=== PATIENT | female | born 1955 | race Caucasian/White ===

== ENCOUNTER 2022-08-07 05:55 | Inpatient (IN) ==
--- NOTE | 2022-06-07 10:51 | PAT Medication Instructions ---
Medication Instructions Date of Service June 07, 2022 Home Medications amlodipine 5 mg tablet 5 mg PO QAM aspirin 81 mg tablet,delayed release (Adult Low Dose Aspirin) 81 mg PO QAM calcium carbonate 600 mg-vitamin D3 10 mcg (400 unit) capsule 1 cap PO QAM clopidogrel 75 mg tablet 75 mg PO QAM insulin glargine 100 unit/mL (3 mL) subcutaneous pen (Basaglar CindyPen U-100 Insulin) 16 unit subcut QPM lisinopril 2.5 mg tablet 2.5 mg PO QAM metformin 500 mg tablet,extended release 24 hr 500 mg PO QAM metoprolol succinate 100 mg tablet,extended release 24 hr 100 mg PO QAM montelukast 10 mg tablet 10 mg PO QAM nitroglycerin 0.4 mg sublingual tablet 0.4 mg sublingual Q5M PRN chest pain pantoprazole 40 mg tablet,delayed release 40 mg PO QAM paroxetine HCl 10 mg tablet 10 mg PO QAM rosuvastatin 20 mg tablet 20 mg PO QAM sitagliptin 100 mg tablet (Januvia) 100 mg PO QAM dapagliflozin 10 mg tablet (xiga) 10 mg PO QAM furosemide 20 mg tablet 20 mg PO QAM PRN Edema Continue as directed nitroglycerin 0.4 mg sublingual tablet 0.4 mg sublingual Q5M PRN chest pain (if needed) ASK your prescriber and surgeon aspirin 81 mg tablet,delayed release (Adult Low Dose Aspirin) 81 mg PO QAM clopidogrel 75 mg tablet 75 mg PO QAM DO NOT take the morning of surgery calcium carbonate 600 mg-vitamin D3 10 mcg (400 unit) capsule 1 cap PO QAM lisinopril 2.5 mg tablet 2.5 mg PO QAM metformin 500 mg tablet,extended release 24 hr 500 mg PO QAM montelukast 10 mg tablet 10 mg PO QAM sitagliptin 100 mg tablet (Januvia) 100 mg PO QAM furosemide 20 mg tablet 20 mg PO QAM PRN Edema Take morning of surgery With a small sip of water, OTHERWISE NOTHING TO EAT OR DRINK AFTER MIDNIGHT: amlodipine 5 mg tablet 5 mg PO QAM metoprolol succinate 100 mg tablet,extended release 24 hr 100 mg PO QAM pantoprazole 40 mg tablet,delayed release 40 mg PO QAM paroxetine HCl 10 mg tablet 10 mg PO QAM rosuvastatin 20 mg tablet 20 mg PO QAM Take evening before surgery insulin glargine 100 unit/mL (3 mL) subcutaneous pen (Basaglar KwikPen U-100 Insulin) 16 unit subcut QPM Other Notes STOP 3 days before surgery dapagliflozin 10 mg tablet (Eric) 10 mg PO QAM If you have any questions please call us at [phone] or [phone] or [phone] or [phone]
--- NOTE | 2022-06-12 09:45 | Anesthesiology Consultation ---
Date of Service June 12, 2022 Assessment & Plan (1) Encounter for pre-operative examination: Plan - check BSG am DOS. To anesthesiologist discretion if pt needs additional testing DOS. - reflux: pt reports nocturnal hiccups and regurgitation, chest CT 03/08/22 shows nonspecific hazy appearance of the dependent portion of the right lung combined with mucus in the trachea suggests aspiration. - Case discussed with Dr. Moon who advised nothing further needed from his standpoint, she is acceptable to proceed. - possible difficult intubation: hx of cervical spine fusion, significantly limited cervical extension. - cardiology 04/28/22: "...coronary artery disease peripheral arterial disease s/p left iliac stent as well as carotid disease s/p right carotid endarterectomy...2004 underwent a mid LAD stent...2008 repeat stenting to mid LAD x 2...2009...third procedure to LAD with XIENCE stent...stress test was in 2014 which was normal...Lexiscan nuclear stress test to assess for ischemia...echo to assess her LV function..." Subsequent testing completed and above, clearance 06/01/22: "...low to moderate risk, see echo and nuclear stress- both normal..." - COVID screening: Per assessment on 06/12/2022: Travel screen negative, no known COVID-19 positive contacts or current COVID-19 related symptoms in past 2 weeks. Pt vaccinated. COVID test obtained at [facility] appt. Chart Review Chart Review: Acceptable Risk for Surgery and Patient seen in Pre Admission Testing Teaching & Discussion Pre-Anesthesia Teaching/Discussion Notes: Instructed NPO after midnight before surgery, except medications with 15 cc of water. Medication instructions provided according to the [facility] guidelines. History Surgery Operation Date: 06/14/22 13:00 Proposed Procedures p Left Carotid Endarterectomy - Wong Snigh MD Height/Weight Height: 5 ft 6 in Weight: 61.8 kg Allergies Allergy/AdvReac Type Severity Reaction Status Date / Time adhesive tape Allergy Severe skin Verified 06/06/22 15:12 irritation No Known Drug Allergies Allergy Verified 06/06/22 15:11 Medications Home Medications Medication Instructions Recorded Confirmed Last Taken amlodipine 5 mg tablet 5 mg PO QAM 05/26/22 06/06/22 Unknown aspirin 81 mg tablet,delayed 81 mg PO QAM 05/26/22 06/06/22 Unknown release (Adult Low Dose Aspirin) calcium carbonate 600 mg-vitamin 1 cap PO QAM 05/26/22 06/06/22 Unknown D3 10 mcg (400 unit) capsule clopidogrel 75 mg tablet 75 mg PO QAM 05/26/22 06/06/22 Unknown insulin glargine 100 unit/mL (3 16 unit subcut QPM 05/26/22 06/06/22 Unknown mL) subcutaneous pen (Basaglar KwikPen U-100 Insulin) lisinopril 2.5 mg tablet 2.5 mg PO QAM 05/26/22 06/06/22 Unknown metformin 500 mg tablet,extended 500 mg PO QAM 05/26/22 06/06/22 Unknown release 24 hr metoprolol succinate 100 mg 100 mg PO QAM 05/26/22 06/06/22 Unknown tablet,extended release 24 hr montelukast 10 mg tablet 10 mg PO QAM 05/26/22 06/06/22 Unknown nitroglycerin 0.4 mg sublingual 0.4 mg sublingual Q5M PRN chest 05/26/22 06/06/22 Unknown tablet pain pantoprazole 40 mg tablet,delayed 40 mg PO QAM 05/26/22 06/06/22 Unknown release paroxetine HCl 10 mg tablet 10 mg PO QAM 05/26/22 06/06/22 Unknown rosuvastatin 20 mg tablet 20 mg PO QAM 05/26/22 06/06/22 Unknown sitagliptin 100 mg tablet (Januvia) 100 mg PO QAM 05/26/22 06/06/22 Unknown dapagliflozin 10 mg tablet 10 mg PO QAM 06/06/22 06/06/22 Unknown (Farxiga) furosemide 20 mg tablet 20 mg PO QAM PRN Edema 06/06/22 06/06/22 Unknown Past Medical History Medical History (Updated 06/12/22 @ 09:53 by Erma Andrew PA-C) Abnormal chest CT 03/08/22: Nonspecific hazy appearance of the dependent portion of the right lung combined with mucus in the trachea suggests aspiration. There is also suggestion of a small nodule in the left mainstem bronchus. Likely noncancerous, should be followed with noncontrast CT scan in 6 months Anxiety situational CAD (coronary artery disease) total 4 stents per pt Carotid artery stenosis s/p right carotid endarterectomy 12 yrs ago; Degenerative disc disease Depression situational Diabetes mellitus, type 2 IDDM GERD (gastroesophageal reflux disease) pt states symptoms breakthrough despite medication, nocturnal hiccups and regurgitation despite wedge pillow Hyperlipidemia Hypertension controlled, stable per pt Myocardial infarction multiple, s/p stents Peripheral arterial disease s/p left iliac stent Transient ischemic attack (TIA) s/p right cartiod endarterectomy (12 years + ago) no problems since Patient denies h/o seizures, heart failure, blood clots or blood transfusions. Exercise / Class Metabolic Activity II 4-5 Yardwork/Stairs/Walk up hill (denies CP or SOB with 1 FOS) Past Family History Family History Mother Heart disease Stroke Father Heart disease Sister Heart disease Other No family history of adverse response to anesthesia Past Surgical History Surgical History (Updated 06/12/22 @ 09:54 by Erma Andrew PA-C) History of cardiac cath x3 total (last one 2009) History of carotid endarterectomy right History of cholecystectomy History of colonoscopy History of esophagogastroduodenoscopy (EGD) History of heart artery stent total x4 stents. (1 stent in 2004, 2 stents placed in 2008, 1 stent placed in 2009 at [facility]) History of surgery "bone part removal" R shoulder History of surgery on lower extremity Left leg (iliac stent placement) S/P cervical spinal fusion C3-C4-C5. 90% movement to the left. Status post de Quervain's release surgery bilat Past Anesthesia History No Family Hx of Anesthesia Complications and Other (occasionally combative behavior with post-op confusion including "swatting" hands) History of PONV No Hx of PONV and No Hx of Motion Sickness Social History Smoking Status: Current every day smoker (-advised) tobacco type: cigarettes Smoking cigarettes per day: 10 Do You Dip or Chew Tobacco: No Hx Alcohol Use: No Hx Substance Use: No substance use type: does not use Review of Systems Patient denies chest pain, shortness of breath, dyspnea on exertion, snoring, witnessed apneas, dizziness, lightheadedness, visual changes, headache, nausea, vomiting, diaphoresis, fever, chills, cough, wheezing, or palpitations. Physical Exam Vital Signs Vitals BP 97/60 P 65 TEMP 98.6 SP02 99% on RA RESP 17 Physical Limited cervical extension range of motion without pain TMD 3.5 finger breadths Mallampati Score 2 Dentition: intact, removable plate front upper and missing lower molars bilat; denies chipped teeth, caps or crowns Lungs: normal respiratory effort. Clear throughout to auscultation, no adventitious breath sounds Cardiac: regular rate and rhythm, no murmurs noted Carotid arteries: negative bruit bilat Lab Results Anesthesia Preop Results Results Anesthesia Widget: WBC 13.53 K/ul (4.8-10.8) H 06/12/22 Hgb 17.2 g/dl (12.0-16.0) H 06/12/22 Hct 51.0 % (34.1-44.9) H 06/12/22 Plt 205 K/uL (130-400) 06/12/22 Na 137 mmol/L (136-145) 06/12/22 K 4.9 mmol/L (3.5-5.1) 06/12/22 Cl 102 mmol/L (98-107) 06/12/22 CO2 29 mmol/L (21-32) 06/12/22 BUN 12 mg/dl (6-23) 06/12/22 Creat 0.81 mg/dl (0.6-1.2) 06/12/22 Glucose Level 133 mg/dl (70-99(Fasting)) H 06/12/22 PT 10.9 Seconds (9.0-12.0) 06/12/22 PTT 28.2 Seconds (21.0-31.0) 06/12/22 INR 1.0 (0.9-1.1) 06/12/22 HA1c 7.9 % H 05/29/22 Blood Type O Positive 06/12/22 Antibody Screen NEGATIVE 06/12/22 Testing Laboratory Results Danny with surgeon's office made aware of elevated WBC with left shift. Electrocardiogram Date: 06/12/22 Sinus rhythm, rate [address] and T wave abnormality Echocardiogram Date: 05/29/22 EF 55% Mildly dilated RA Stress Test Date: 05/29/22 Pharmacologic No significant rest or stress associated defects, no evidence of myocardial ischemia or infarct EF 59% Mild breast attenuation Normal wall motion Other Testing Chest CT 03/08/22 Faint, hazy opacities posteriorly in the right lung suggesting nonspecific inflammatory process Mucus layering in the trachea, suggestion of mucus in the left mainstem bronchus with 3 mm nodule in the non dependent wall of the left mainstem bronchus may also represent mucus Atherosclerotic disease of the aorta Dense coronary artery calcifications Borderline precarinal lymph node 1.6 x 1.4 cm Mild degenerative changes in the spine and sternoclavicular joints Nonspecific hazy appearance of the dependent portion of the right lung combined with mucus in the trachea suggests aspiration. There is also suggestion of a small nodule in the left mainstem bronchus. Likely noncancerous, should be followed with noncontrast CT scan in 6 months
[2022-08-07] MEDS ORDERED: SODIUM CHLORIDE 0.9% 1000ML IV SCH (06:00)
[2022-08-07] MEDS ORDERED: ceFAZolin 1000MG 1,000 MG/7.5 ML SYR IV SCH (06:00)
[2022-08-07] MEDS ORDERED: fentaNYL citrate 100 MCG/2 ML VIAL ONE ×2 (06:47→08:26)
[2022-08-07] MEDS ORDERED: MIDAZOLAM HCL 1 MG/ML 2ML VIAL ONE (06:47)
[2022-08-07] MEDS ORDERED: ceFAZolin 330 MG/ML 1 GM VIAL ONE (06:58)
[2022-08-07] MEDS ORDERED: THROMBIN FOR SOLN 20000 UNIT KIT ONE (06:58)
[2022-08-07] MEDS ORDERED: GELATIN SPONGE SZ 100 ONE ×2 (06:58→07:12)
[2022-08-07] MEDS ORDERED: LIDOCAINE 1% LOCAL 20 ML VIAL ONE (06:58)
[2022-08-07] MEDS ORDERED: HEPARIN (PORCINE) 1000 UNIT/ML 10 ML (CATH LAB USE ONLY) ONE (06:58)
[2022-08-07] MEDS ORDERED: BUPIVACAINE 0.5 % 5 MG/1 ML MPF 30ML VIAL ONE (06:59)
[2022-08-07] MEDS ORDERED: EPINEPHrine INJ 1 MG/ML AMP ONE (06:59)
[2022-08-07] MEDS ORDERED: PROPOFOL IV EMULSION 10 MG/ML 20 ML VIAL IV ONE (07:05)
[2022-08-07] MEDS ORDERED: PHENYLEPHRINE HCL 10 MG/ML VIAL ONE (07:05)
[2022-08-07] MEDS ORDERED: ONDANSETRON INJ 2 MG/ML 2 ML VIAL ONE ×2 (07:05→09:46)
[2022-08-07] MEDS ORDERED: LIDOCAINE 2% 2 ML VIAL/AMP(20MG/ML) INFIL ONE (07:05)
[2022-08-07] MEDS ORDERED: ROCURONIUM BROMIDE 10 MG/ML 5 ML VIAL IV ONE (07:05)
[2022-08-07] MEDS ORDERED: HEPARIN SOD (PORCINE) 1000 UNIT/ML ONE (07:05)
--- NOTE | 2022-08-07 07:15 | History & Physical Report ---
Date of Service August 07, 2022 Assessment & Plan (1) Stenosis of left internal carotid artery: Plan: Patient is admitted for a left CEA. I have discussed the risks options and benefits of the procedure with the patient. The patient understands the risks options and benefits and agrees to the procedure. History of Present Illness Chief Complaint: Left internal carotid artery stenosis Primary Care Provider: NO PCP Ms. Galeano is an elderly female who presents to Dr. Singh's vascular surgery clinic today for a follow-up visit regarding her recent CTA of the neck. This test was ordered due to an ultrasound of her carotid arteries which demonstrated severe stenosis in the left ICA, as well as some restenosis in her right ICA at the endarterectomy site. Patient continues to deny any symptoms. Her neck CTA performed prior to today's appointment does demonstrate over 90% stenosis of her left ICA, as well as significant restenosis in her right ICA endarterectomy site and a stenosis in her common carotid artery as well. Allergies Allergy/AdvReac Type Severity Reaction Status Date / Time adhesive tape Allergy Severe skin Verified 08/07/22 06:23 irritation No Known Drug Allergies Allergy Verified 08/07/22 06:23 Home Medications Medication Instructions Recorded Confirmed Type amlodipine 5 mg tablet 5 mg PO QAM 05/26/22 08/07/22 History aspirin 81 mg tablet,delayed 81 mg PO 05/26/22 08/07/22 History release (Adult Low Dose Aspirin) calcium carbonate 600 mg-vitamin 1 cap PO QAM 05/26/22 08/03/22 History D3 10 mcg (400 unit) capsule clopidogrel 75 mg tablet 75 mg PO QAM 05/26/22 08/07/22 History insulin glargine 100 unit/mL (3 16 unit subcut QPM 05/26/22 08/07/22 History mL) subcutaneous pen (Basaglar KwikPen U-100 Insulin) lisinopril 2.5 mg tablet 2.5 mg PO QAM 05/26/22 08/07/22 History metformin 500 mg tablet,extended 500 mg PO QAM 05/26/22 08/07/22 History release 24 hr metoprolol succinate 100 mg 100 mg PO QAM 05/26/22 08/07/22 History tablet,extended release 24 hr montelukast 10 mg tablet 10 mg PO QAM 05/26/22 08/07/22 History nitroglycerin 0.4 mg sublingual 0.4 mg sublingual Q5M PRN chest 05/26/22 08/07/22 History tablet pain pantoprazole 40 mg tablet,delayed 40 mg PO QAM 05/26/22 08/07/22 History release paroxetine HCl 10 mg tablet 10 mg PO QAM 05/26/22 08/07/22 History sitagliptin 100 mg tablet (Januvia) 100 mg PO QAM 05/26/22 08/07/22 History dapagliflozin 10 mg tablet 10 mg PO QAM 06/06/22 08/07/22 History (Farxiga) furosemide 20 mg tablet 20 mg PO QAM PRN Edema 06/06/22 08/07/22 History rosuvastatin 40 mg tablet 40 mg PO QAM 08/03/22 08/07/22 History Past Med/Surg History Medical History Abnormal chest CT 03/08/22: Nonspecific hazy appearance of the dependent portion of the right lung combined with mucus in the trachea suggests aspiration. There is also suggestion of a small nodule in the left mainstem bronchus. Likely noncancerous, should be followed with noncontrast CT scan in 6 months Anxiety situational CAD (coronary artery disease) total 4 stents per pt Carotid artery stenosis s/p right carotid endarterectomy 12 yrs ago; Degenerative disc disease Depression situational Diabetes mellitus, type 2 IDDM GERD (gastroesophageal reflux disease) pt states symptoms breakthrough despite medication, nocturnal hiccups and regurgitation despite wedge pillow Hyperlipidemia Hypertension controlled, stable per pt Myocardial infarction multiple, s/p stents Peripheral arterial disease s/p left iliac stent Transient ischemic attack (TIA) s/p right cartiod endarterectomy (12 years + ago) no problems since Surgical History History of cardiac cath x3 total (last one 2009) History of carotid endarterectomy right History of cholecystectomy History of colonoscopy History of esophagogastroduodenoscopy (EGD) History of heart artery stent total x4 stents. (1 stent in 2004, 2 stents placed in 2008, 1 stent placed in 2009 at [facility]) History of surgery "bone part removal" R shoulder History of surgery on lower extremity Left leg (iliac stent placement) S/P cervical spinal fusion C3-C4-C5. 90% movement to the left. Status post de Quervain's release surgery bilat Family History Mother Heart disease Stroke Father Heart disease Sister Heart disease Other No family history of adverse response to anesthesia Social History Smoking Status: Current every day smoker Tobacco Type: Cigarettes packs per day: 0.5; Years Smoked: 50; Cigarettes Per Day: 10; Second Hand Exposure: No; Do You Dip or Chew Tobacco: No; Tobacco Cessation Education Requested by Patient: No Hx Alcohol Use: No Hx Substance Use: No Preferred Language: Uzbek Communication Ability: Effective Channel Marketing Manager Required: No Beliefs That Will Affect Care: None Current Living Situation: Family Current Living Situation Comment: lives with sons x2 Other Information That Helps Us Care for You: No Feels Safe at Home: Yes Safety Concerns: Feels Safe At This Time Assistive Devices: Denture - Upper and Glasses Review of Systems All systems reviewed & are unremarkable except as noted in HPI & below Physical Exam Physical Exam: Constitutional: In general patient is a healthy-appearing well- nourished well-developed elderly female in no distress. She is alert and oriented without any focal deficits. Her head is normocephalic atraumatic. Neck is supple nontender with midline trachea. Her right neck surgical incision is well-healed. She does have a right-sided carotid bruit. Her heart is regular, her lungs are decreased slightly but clear throughout. Her abdomen is soft nontender with normoactive bowel sounds in all 4 quadrants. I do not appreciate an abdominal bruit. She has +3 brachial radial and femoral pulses. Her distal pulses are +2. She has brisk capillary refill and no sign of distal ischemia. Her toes are warm and pink. Results & Data ([facility]) Vital Signs (Past 12 Hours) Vital Signs Temp Pulse Resp BP BP Pulse Ox O2 Del Method 08/07/22 06:23 119/65 08/07/22 06:19 36.7 C 61 20 132/71 99 Room Air
[2022-08-07 07:16] LABS: BUN Creatinine Ratio 21.5 (10-20); Calcium 9.3 mg/dl (8.5-10.1); Creatinine Clr Calc Pharmacy 67.3 ml/min; Est GFR (African American) 91.7 ml/min; Est GFR (Non-African American) 79.1 ml/min
[2022-08-07] MEDS ORDERED: PROTAMINE SULFATE 10 MG/ML 5 ML VIAL ONE (09:30)
[2022-08-07] MEDS ORDERED: GLYCOPYRROLATE 0.2 MG/ML VIAL ONE (09:46)
[2022-08-07] MEDS ORDERED: NEOSTIGMINE METHYLSULFATE 1 MG/ML 10ML VIAL ONE (09:46)
--- NOTE | 2022-08-07 09:59 | Operative Report ---
Post Operative Report Pre & Post Diagnosis Operation Date: 08/07/22 07:30 Pre-Op Diagnosis: Left Carotid Artery Stenosis Post-Op Diagnosis: Left Carotid Artery Stenosis I identified the patient and participated in the time-out.: Yes Procedure Operation Date: 08/07/22 07:30 Actual Procedures p Left Carotid Endarterectomy(Left) - Wong Singh MD Surgeon Wong Singh MD Litigator Omer,PAC Estimated Blood Loss 50 Findings Consistent with Post-Op Diagnosis Specimens left carotid plaque Anesthesia Type General Complications none Disposition Accompanied Patient To Recovery: No Disposition: Recovery Room Indications This is a 66yo female with severe stenosis of her left internal carotid artery. She was asymptomatic. Carotid endart was recommended. She was not a tcar candidate. I have discussed the risks options and benefits of the procedure with the patient. The patient understands the risks options and benefits and agrees to the procedure. Description of Procedure The patient was taken to the operating room and placed in supine position. After general anesthesia was accomplished the left side of the neck was prepped and draped in a sterile manner. The patient was identified and a timeout performed. A longitudinal neck incision was then made coursing along the medial border of the sternocleidomastoid muscle. The incision was taken down through the platysmal layer. The facial vein was identified, ligated, and divided. The common carotid artery was then seen. It was dissected free down to the omohyoid muscle. The dissection was carried upward until the external carotid artery and superior thyroid artery was seen. The superior thyroid artery was slung with a 2-0 silk suture. The external carotid was slung with a red rubber vessel loop. Next the dissection was carried up along the internal carotid artery. This was carried upward to beyond the area of narrowing. The hypoglossal nerve was preserved. The patient was heparinized. After adequate heparinization was accomplished, the internal, external, and common carotid arteries were clamped. A longitudinal arteriotomy was started on the common carotid artery and extended upward along the internal carotid artery to a point beyond the area of narrowing. There was calcified plaque of the internal carotid artery origin causing approximately 90%+ narrowing. A external sundt shunt was then placed in the internal, followed by the common carotid artery and held in place with Kleber clamps. There was good back bleeding seen from the internal carotid artery. The endarterectomy was then started in the appropriate plane on the common carotid artery. This was carried upward and the external carotid was everted and endarterectomized. The endarterectomy was then carried up along the internal carotid artery till a nice feathering breakoff point was accomplished beyond the end of the plaque. The endarterectomy was then carried down further on the common carotid artery. At end of the arteriotomy, the plaque was then transected. Under loop magnification, all loose debris and flaps werer removed. There is no distal flap seen at the end of the endarterectomy site. The distal breakoff point was tacked down with 3 7-0 prolene sutures. The arteriotomy then closed using a bovine patch and a running 6-0 prolene suture. This was done in the usual vascular fashion. Prior to completing the closure, the shunt was removed and the internal and common carotid arteries were reclamped. Backbleeding and forward bleeding was allowed to occur. The flow surface was irrigated with heparinized saline. The final few sutures were then placed and securely tied. Clamps were then removed off the external and common carotid arteries. The clamp was then removed the internal carotid artery. Good distal flow was seen. There were 4 interrupted sutures needed for small leaks of the patch. Adequate hemostasis was seen of the patch. The wound was inspected and adequate hemostasis was obtained. The wound was irrigated with antibiotic solution. It was then closed with a running 3-0 Vicryl suture for the platysmal layer and a 4-0 subcuticular Vicryl suture for the skin edges. Dermabond was used for dressing. The patient left the operation room in satisfactory condition and tolerated the procedure well. All needle and sponge counts were correct at the end of the procedure. Charley Alston Pac assisted due to lack of resident availability and was necessary for prepping, draping, retraction, wound closure defects, subQ and skin closure and was necessary for the case. I attest to the content of the Intraoperative Record and any orders documented therein. Any exceptions are noted below.
--- NOTE | 2022-08-07 11:10 | Anesthesiology Progress Note ---
Date of Service August 07, 2022 Anesthesia Post Procedure Vital Signs Vital Signs: Temp Pulse Resp BP BP BP Pulse Ox 08/07/22 11:00 36.8 C 55 L 20 94/47 L 113/48 L 93 08/07/22 10:50 54 L 19 91/50 L 126/50 L 98 08/07/22 10:40 56 L 22 95/51 L 99 08/07/22 10:30 57 L 21 120/62 99 08/07/22 10:24 36.2 C L 58 L 16 127/61 97 08/07/22 06:23 119/65 08/07/22 06:19 36.7 C 61 20 132/71 99 O2 Del Method O2 Flow Rate 08/07/22 11:00 Nasal Cannula 2 08/07/22 10:50 Oxymask 5 08/07/22 10:40 Oxymask 5 08/07/22 10:30 Oxymask 9 08/07/22 10:24 Oxymask 9 08/07/22 06:23 08/07/22 06:19 Room Air Transfer of Care Handoff Completed per policy Notes Mental Status: alert / awake / arousable and participated in evaluation Patient Amnestic to Procedure: Yes Nausea / Vomiting: adequately controlled Pain: adequately controlled Airway Patency, RR, SpO2: stable & adequate BP & HR: stable & adequate Hydration State: stable & adequate Anesthetic Complications: no major complications apparent Notes: The patient is doing well in recovery with no complaints. Moving all extremities and cranial nerves grossly intact, answers questions appropriately.
[2022-08-07] MEDS ORDERED: MoRPHine SULFATE 4 MG/ML 1 ML CARP\\VIAL IV PRN (11:49)
[2022-08-07] MEDS ORDERED: PHARMACY GLYCEMIC MGMT CONSULT PRN (11:49)
[2022-08-07] MEDS ORDERED: FUROSEMIDE 20 MG TAB PO PRN (11:49)
[2022-08-07] MEDS ORDERED: NITROGLYCERIN SL 0.4 MG/TAB TAB SL PRN (11:49)
[2022-08-07] MEDS ORDERED: STAT IV Infusion **Titration per Protocol STA (12:07)
[2022-08-07] MEDS: LACTATED RINGER'S 1,000 ML IV SCH ×2 (12:16→19:32)
[2022-08-07] MEDS: PHENYLEPHRINE HCL 20 MG in DEXTROSE 5% 500 ML IV SCH (12:23)
[2022-08-07] MEDS ORDERED: CARBOHYDRATES FOR HYPOGLYCEMIA PO PRN (12:30)
[2022-08-07] MEDS ORDERED: GLUCAGON FOR INJ 1 MG VIAL IM PRN (12:30)
[2022-08-07] MEDS ORDERED: GLUCOSE 40% GEL 15 GM TUBE PO PRN (12:30)
[2022-08-07] MEDS ORDERED: DEXTROSE 50% 50 ML SYRINGE IV PRN (12:30)
[2022-08-07] MEDS ORDERED: GLUCOSE 10 TAB/TUBE PO PRN (12:30)
[2022-08-07] MEDS: INSULIN ASPART PER UNIT SC SCH ×3 (13:19→21:54)
[2022-08-07] MEDS: ceFAZolin 1000MG 1,000 MG/7.5 ML SYR IV SCH ×2 (13:37→19:32)
--- NOTE | 2022-08-07 14:45 | Critical Care Consultation ---
Date of Consultation August 07, 2022 Assessment & Plan (1) Hypotension: (2) Stenosis of left internal carotid artery: (3) Uncontrolled type 2 diabetes mellitus with hyperglycemia: (4) Mixed hyperlipidemia: (5) History of myocardial infarct at age less than 60 years: (6) Carotid artery stenosis: (7) Current smoker: (8) COPD (chronic obstructive pulmonary disease): Plan --Stenosis S/p carotid endarterectomy done 08/07/[address] Singh Continue with neurochecks Follow-up H&H Monitor blood pressure -- Hypotension Likely post procedural s/p anesthesia Patient did get IV fluid bolus Currently on phenylephrine to keep MAP greater than 65 Vascular surgery aware -- Dyslipidemia Continue with statin --History of hypertension at home Hold blood pressure medication --COPD with current smoker Greater than [id number] smoking history Encouraged to quit Recommend outpatient PFT Keep O2 saturation between 90-92% --Diabetes Continue with ICU hypoglycemia protocol --Anxiety/depression Continue with paroxetine --Prophylaxis VTE: IPC GI: Pantoprazole Lines: Right radial, peripheral, positive Lester Diet: Cardiac Plan: Continue with neurochecks. Monitor H&H Keep MAP greater than 65 Titrated off phenylephrine if possible Hold blood pressure medication Please note the above document was generated using voice recognition software. It may contain grammatical, syntax or spelling errors.Any formal questions or concerns about the content, text or information contained within the body of this dictation should be directly addressed to the provider for clarification. History of Present Illness Attending Physician: Wong Singh MD History of Present Illness 66-year-old female admitted to the ICU for postop care s/p left carotid e ndarterectomy Past medical history: History of CVA, diabetes, GERD, COPD, dyslipidemia, depression In the time of examination patient was on 0.5 mics of phenylephrine as a blood pressure was on the softer side. She complained of sore throat. Mild pain at the site of the incision. Denied any headache. No blurry vision. No nausea or vomiting No shortness of breath. No chest pain. Social history: Greater than [id number] smoking history, currently smoking half a pack a day. Allergies Allergy/AdvReac Type Severity Reaction Status Date / Time adhesive tape Allergy Severe skin Verified 08/07/22 06:23 irritation No Known Drug Allergies Allergy Verified 08/07/22 06:23 Home Medications Medication Instructions Recorded Confirmed Type amlodipine 5 mg tablet 5 mg PO QAM 05/26/22 08/07/22 History aspirin 81 mg tablet,delayed 81 mg PO QAM 05/26/22 08/07/22 History release (Adult Low Dose Aspirin) calcium carbonate 600 mg-vitamin 1 cap PO QAM 05/26/22 08/03/22 History D3 10 mcg (400 unit) capsule clopidogrel 75 mg tablet 75 mg PO QAM 05/26/22 08/07/22 History insulin glargine 100 unit/mL (3 16 unit subcut QPM 05/26/22 08/07/22 History mL) subcutaneous pen (Basaglar KwikPen U-100 Insulin) lisinopril 2.5 mg tablet 2.5 mg PO QAM 05/26/22 08/07/22 History metformin 500 mg tablet,extended 500 mg PO QAM 05/26/22 08/07/22 History release 24 hr metoprolol succinate 100 mg 100 mg PO QAM 05/26/22 08/07/22 History tablet,extended release 24 hr montelukast 10 mg tablet 10 mg PO QAM 05/26/22 08/07/22 History nitroglycerin 0.4 mg sublingual 0.4 mg sublingual Q5M PRN chest 05/26/22 08/07/22 History tablet pain pantoprazole 40 mg tablet,delayed 40 mg PO QAM 05/26/22 08/07/22 History release paroxetine HCl 10 mg tablet 10 mg PO QAM 05/26/22 08/07/22 History sitagliptin 100 mg tablet (Januvia) 100 mg PO QAM 05/26/22 08/07/22 History dapagliflozin 10 mg tablet 10 mg PO QAM 06/06/22 08/07/22 History (Farxiga) furosemide 20 mg tablet 20 mg PO QAM PRN Edema 06/06/22 08/07/22 History rosuvastatin 40 mg tablet 40 mg PO QAM 08/03/22 08/07/22 History Patient History Medical History Abnormal chest CT 03/08/22: Nonspecific hazy appearance of the dependent portion of the right lung combined with mucus in the trachea suggests aspiration. There is also suggestion of a small nodule in the left mainstem bronchus. Likely noncancerous, should be followed with noncontrast CT scan in 6 months Anxiety situational CAD (coronary artery disease) total 4 stents per pt Carotid artery stenosis s/p right carotid endarterectomy 12 yrs ago; Degenerative disc disease Depression situational Diabetes mellitus, type 2 IDDM GERD (gastroesophageal reflux disease) pt states symptoms breakthrough despite medication, nocturnal hiccups and regurgitation despite wedge pillow Hyperlipidemia Hypertension controlled, stable per pt Myocardial infarction multiple, s/p stents Peripheral arterial disease s/p left iliac stent Transient ischemic attack (TIA) s/p right cartiod endarterectomy (12 years + ago) no problems since Surgical History History of cardiac cath x3 total (last one 2009) History of carotid endarterectomy right History of cholecystectomy History of colonoscopy History of esophagogastroduodenoscopy (EGD) History of heart artery stent total x4 stents. (1 stent in 2004, 2 stents placed in 2008, 1 stent placed in 2009 at [facility]) History of surgery "bone part removal" R shoulder History of surgery on lower extremity Left leg (iliac stent placement) S/P cervical spinal fusion C3-C4-C5. 90% movement to the left. 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: No Beliefs That Will Affect Care: None Current Living Situation: Family Current Living Situation Comment: lives with sons x2 Other Information That Helps Us Care for You: No Feels Safe at Home: Yes Safety Concerns: Feels Safe At This Time Assistive Devices: Denture - Upper and Glasses Review of Systems Review of Systems: All systems reviewed & are unremarkable except as noted in HPI & below Physical Exam Physical Exam: Constitutional: No acute distress HEENT: EOMI, PERRLA, left neck incision clean Respiratory system: Decreased air entry bilaterally, no wheeze, rhonchi, positive crackles bilateral lower lobes CVS: S1-S2 positive, no murmurs or gallops, bradycardia Abdomen: Soft, nontender, nondistended, positive bowel sounds x4 Extremities: +2 pulses bilaterally radialis/ dorsalis pedis, no cyanosis, no edema Neuro: Awake alert oriented x3 Psych: Normal mood and affect G/U: Positive Lester Skin: no rashes, warm and dry Lymphatic: no cervical or axillary lymphadenopathy Results & Data Results & Data ([facility]) Vital Signs (Past 12 Hours) Vital Signs Temp Pulse Pulse Resp BP BP BP 08/07/22 14:15 53 L 19 08/07/22 14:15 110/56 L 08/07/22 14:00 54 L 18 08/07/22 14:00 119/56 L 08/07/22 13:45 52 L 17 08/07/22 13:45 114/53 L 08/07/22 13:31 106/53 L 08/07/22 13:31 57 L 18 08/07/22 13:30 55 L 22 08/07/22 13:16 105/60 08/07/22 13:16 55 L 20 08/07/22 13:15 54 L 19 08/07/22 13:00 56 L 12 08/07/22 13:00 121/56 L 08/07/22 12:50 54 L 19 08/07/22 12:45 111/55 L 08/07/22 12:45 53 L 20 08/07/22 12:43 112/46 L 08/07/22 12:43 56 L 22 08/07/22 12:40 53 L 15 08/07/22 12:30 55 L 17 08/07/22 12:30 84/45 L 08/07/22 12:20 55 L 16 08/07/22 12:15 80/47 L 08/07/22 12:15 53 L 15 08/07/22 12:10 69 21 08/07/22 12:00 54 L 19 08/07/22 12:00 82/48 L 08/07/22 11:50 53 L 15 08/07/22 11:45 52 L 16 08/07/22 11:45 77/42 L 08/07/22 11:44 53 L 16 08/07/22 12:00 56 L 08/07/22 11:20 52 L 20 08/07/22 11:10 51 L 16 08/07/22 11:00 36.8 C 55 L 20 94/47 L 08/07/22 10:50 54 L 19 91/50 L 08/07/22 10:40 56 L 22 95/51 L 08/07/22 10:30 57 L 21 120/62 08/07/22 10:24 36.2 C L 58 L 16 127/61 08/07/22 06:23 119/65 08/07/22 06:19 36.7 C 61 20 132/71 BP Pulse Ox O2 Del Method O2 Flow Rate 08/07/22 14:15 92 08/07/22 14:15 08/07/22 14:00 93 08/07/22 14:00 08/07/22 13:45 93 08/07/22 13:45 08/07/22 13:31 08/07/22 13:31 95 08/07/22 13:30 96 08/07/22 13:16 08/07/22 13:16 96 08/07/22 13:15 96 08/07/22 13:00 96 08/07/22 13:00 08/07/22 12:50 94 08/07/22 12:45 08/07/22 12:45 95 08/07/22 12:43 08/07/22 12:43 93 08/07/22 12:40 94 08/07/22 12:30 92 08/07/22 12:30 08/07/22 12:20 90 08/07/22 12:15 08/07/22 12:15 91 08/07/22 12:10 92 08/07/22 12:00 90 08/07/22 12:00 08/07/22 11:50 91 08/07/22 11:45 92 08/07/22 11:45 08/07/22 11:44 92 08/07/22 12:00 08/07/22 11:20 104/44 L 95 Nasal Cannula 2 08/07/22 11:10 112/46 L 96 Nasal Cannula 2 08/07/22 11:00 113/48 L 93 Nasal Cannula 2 08/07/22 10:50 126/50 L 98 Oxymask 5 08/07/22 10:40 99 Oxymask 5 08/07/22 10:30 99 Oxymask 9 08/07/22 10:24 97 Oxymask 9 08/07/22 06:23 08/07/22 06:19 99 Room Air Laboratory Results 08/07/22 06:27 Coding Level of Care Code 33614 Inpt Consult Level 4 Diagnoses Hypotension I95.9 Stenosis of left internal carotid artery I65.22 Uncontrolled type 2 diabetes mellitus with hyperglycemia E11.65 Mixed hyperlipidemia E78.2 History of myocardial infarct at age less than 60 years I25.2 Carotid artery stenosis I65.29 Current smoker F17.200 COPD (chronic obstructive pulmonary disease) J44.9
--- NOTE | 2022-08-07 15:20 | Pharmacy Report ---
Pharmacy Glycemic Short Note 2 - Date of Service August 07, 2022 - Glycemic Short BSG Results (Last 24 hours): 08/07/22 08/07/22 08/07/22 06:27 06:45 10:25 Glucose 175 H POC Glucose 162 H 137 H 08/07/22 12:45 Glucose POC Glucose 134 H OUTPATIENT ANTIDIABETIC REGIMEN: * Farxiga 10mg qam * metformin 500mg qam * Januvia 100mg PO qam * Lantus 16 units HS * A1c: 7.9% 05/29/22 ASSESSMENT: * Patient admitted to the ICU for postop care s/p left carotid endarterectomy * BSGs acceptable so far today. It does appear the patient took evening lantus dose last evening * Patient is ordered a diet but ate very minimally at lunch. * Will continue with home lantus dose and add a moderate stress novolog scale PLAN FOR INPATIENT GLYCEMIC CONTROL: * Hold outpatient oral diabetes medications * Basal insulin * Lantus 16 units SQ * Bolus insulin * NovoLog per scale ACHS or Q6hrs while NPO * Goal Range: Low 110 mg/dL - High 140 mg/dL * Correction Factor: 35 mg/dL/unit * Nutritional / Prandial insulin per carb ratio of 1 unit per 10 grams CHO consumed
[2022-08-07] MEDS ORDERED: NON-FORMULARY MEDICATION (Insulin Glargine [Basaglar Kwikpen U-100 Insulin] 100 unit/mL (3 SQ SCH (21:00)
[2022-08-07] MEDS: LANTUS PER UNIT CHARGE SQ SCH (21:54)
[2022-08-08] MEDS: LACTATED RINGER'S 1,000 ML IV SCH (04:07)
--- NOTE | 2022-08-08 07:40 | Surgery Progress Note ---
Date of Service August 08, 2022 Assessment & Plan (1) S/P carotid endarterectomy: Plan: doing well Will transfer to floor today. Admission and Anticipated Discharge Date Admission Date: August 07, 2022 Subjective Patient complaining of incisional pain and pain on swallowing. Denies inability to swallow or choking. Physical Exam Constitutional: WD/WN, vitals as above Neck: trachea midline Respiratory: normal respiratory effort; no respiratory distress Cardiovascular: Rate/Rhythm: regular rate and regular rhythm Skin: + incision (dry and clean, no swelling) Neurologic: CN's II-XI intact bilaterally and moves all extremities Psychiatric: Orientation: alert and oriented x 3 Results & Data ([facility]) Vital Signs (Past 12 Hours) Vital Signs Temp Pulse Resp BP Pulse Ox 08/08/22 06:00 59 L 23 90 08/08/22 06:00 98/51 L 08/08/22 05:30 58 L 17 90 08/08/22 05:00 59 L 19 92 08/08/22 05:00 89/50 L 08/08/22 04:30 58 L 14 89 L 08/08/22 04:00 56 L 13 89 L 08/08/22 04:00 99/50 L 08/08/22 03:30 56 L 21 90 08/08/22 03:00 56 L 18 89 L 08/08/22 03:00 94/48 L 08/08/22 02:30 57 L 22 91 08/08/22 02:00 56 L 18 91 08/08/22 02:00 81/56 L 08/08/22 01:30 54 L 21 88 L 08/08/22 01:00 56 L 20 89 L 08/08/22 01:00 95/51 L 08/08/22 00:30 92 08/08/22 00:00 57 L 21 88 L 08/08/22 00:00 96/50 L 08/07/22 23:30 55 L 17 92 08/07/22 23:00 56 L 17 93 08/07/22 23:00 99/53 L 08/07/22 22:30 54 L 17 90 08/08/22 02:00 36.9 C 08/07/22 23:58 55 L 08/07/22 22:15 54 L 17 91 08/07/22 22:00 56 L 20 91 08/07/22 22:00 97/51 L 08/07/22 21:45 54 L 20 92 08/07/22 21:30 54 L 18 91 08/07/22 21:15 56 L 21 92 08/07/22 21:01 93/49 L 08/07/22 21:01 54 L 18 93 08/07/22 21:00 56 L 20 93 08/07/22 20:45 53 L 18 92 08/07/22 20:30 54 L 21 93 08/07/22 20:30 100/51 L 08/07/22 20:15 55 L 19 92 08/07/22 20:15 95/46 L 08/07/22 20:00 55 L 23 91 08/07/22 20:00 95/51 L 08/07/22 19:45 55 L 17 92 08/07/22 19:45 103/50 L 08/07/22 22:00 36.9 C
[2022-08-08] MEDS: oxyCODONE/ACETAMINOPHEN 5mg/325mg TAB PO PRN ×3 (08:12→21:08)
[2022-08-08] MEDS: PHENYLEPHRINE HCL 20 MG in DEXTROSE 5% 500 ML IV SCH (08:15)
[2022-08-08] MEDS: CALCIUM 600MG + VIT D 400 IU TAB PO SCH (08:16)
[2022-08-08] MEDS: MONTELUKAST SODIUM 10 MG TABLET PO SCH (08:17)
[2022-08-08] MEDS: PANTOprazole 40 MG TAB PO SCH (08:17)
[2022-08-08] MEDS: CLOPIDOGREL BISULFATE 75 MG TAB PO SCH (08:17)
[2022-08-08] MEDS: lisinopril 2.5 MG TAB PO SCH (08:17)
[2022-08-08] MEDS: PARoxetine HCL 10 MG TAB PO SCH (08:17)
[2022-08-08] MEDS: ROSUVASTATIN CALCIUM 20 MG TAB PO SCH (08:17)
[2022-08-08] MEDS: amLODIPine BESYLATE 5 MG TAB PO SCH (08:17)
[2022-08-08] MEDS: ASPIRIN 81 MG ECTAB PO SCH (08:17)
[2022-08-08] MEDS: METOPROLOL SUCC 50MG EXT REL TAB PO SCH (08:18)
[2022-08-08] MEDS: INSULIN ASPART PER UNIT SC SCH ×4 (08:19→21:07)
--- NOTE | 2022-08-08 08:58 | Pulmonology Progress Note ---
Date of Service August 08, 2022 Assessment & Plan (1) Hypotension: (2) Stenosis of left internal carotid artery: (3) Uncontrolled type 2 diabetes mellitus with hyperglycemia: (4) Mixed hyperlipidemia: (5) History of myocardial infarct at age less than 60 years: (6) Carotid artery stenosis: (7) Current smoker: (8) COPD (chronic obstructive pulmonary disease): Plan --Stenosis S/p carotid endarterectomy done 08/07/[address] Singh Continue with neurochecks Follow-up H&H Monitor blood pressure -- Hypotension Likely post procedural s/p anesthesia Patient did get IV fluid bolus S/p phenylephrine Vascular surgery aware -- Dyslipidemia Continue with statin --History of hypertension at home Hold blood pressure medication --COPD with current smoker Greater than [id number] smoking history Encouraged to quit Recommend outpatient PFT Keep O2 saturation between 90-92% --Diabetes Continue with ICU hypoglycemia protocol --Anxiety/depression Continue with paroxetine --Prophylaxis VTE: IPC GI: Pantoprazole Lines: Right radial, peripheral, positive Lester Diet: Cardiac Plan: In/out: +2 L, urine output 1540 Labs are pending from today. Tylenol for pain Would recommend holding blood pressure medications given the blood pressure still on the lower side. Disposition as per vascular surgery Please note the above document was generated using voice recognition software. It may contain grammatical, syntax or spelling errors.Any formal questions or concerns about the content, text or information contained within the body of this dictation should be directly addressed to the provider for clarification. Admission and Anticipated Discharge Date Admission Date: August 07, 2022 Subjective Patient seen and examined at bedside. No acute distress, no adverse events overnight. Patient has been off phenylephrine for more than 12 hours Her map during the time of examination ranged between 63-71. She still complains of sore throat. Mild tenderness at the left surgical incision. No nausea or vomiting No headache, no blurry vision No shortness of breath. Review of Systems Review of Systems: All systems reviewed & are unremarkable except as noted in Subjective Physical Exam Physical Exam: Constitutional: No acute distress HEENT: EOMI, PERRLA, left neck incision clean Respiratory system: Decreased air entry bilaterally, no wheeze, rhonchi, positive crackles bilateral lower lobes more on the left side CVS: S1-S2 positive, no murmurs or gallops, bradycardia Abdomen: Soft, nontender, nondistended, positive bowel sounds x4 Extremities: +2 pulses bilaterally radialis/ dorsalis pedis, no cyanosis, no edema Neuro: Awake alert oriented x3 Psych: Normal mood and affect G/U: Positive Lester Skin: no rashes, warm and dry Lymphatic: no cervical or axillary lymphadenopathy Results & Data Results & Data ([facility]) Vital Signs (Past 12 Hours) Vital Signs Temp Pulse Resp BP Pulse Ox 08/08/22 06:00 59 L 23 90 08/08/22 06:00 98/51 L 08/08/22 05:30 58 L 17 90 08/08/22 05:00 59 L 19 92 08/08/22 05:00 89/50 L 08/08/22 04:30 58 L 14 89 L 08/08/22 04:00 56 L 13 89 L 08/08/22 04:00 99/50 L 08/08/22 03:30 56 L 21 90 08/08/22 03:00 56 L 18 89 L 08/08/22 03:00 94/48 L 08/08/22 02:30 57 L 22 91 08/08/22 02:00 56 L 18 91 08/08/22 02:00 81/56 L 08/08/22 01:30 54 L 21 88 L 08/08/22 01:00 56 L 20 89 L 08/08/22 01:00 95/51 L 08/08/22 00:30 92 08/08/22 00:00 57 L 21 88 L 08/08/22 00:00 96/50 L 08/07/22 23:30 55 L 17 92 08/07/22 23:00 56 L 17 93 08/07/22 23:00 99/53 L 08/07/22 22:30 54 L 17 90 08/08/22 02:00 36.9 C 08/07/22 23:58 55 L 08/07/22 22:15 54 L 17 91 08/07/22 22:00 56 L 20 91 08/07/22 22:00 97/51 L 08/07/22 21:45 54 L 20 92 08/07/22 21:30 54 L 18 91 08/07/22 21:15 56 L 21 92 08/07/22 21:01 93/49 L 08/07/22 21:01 54 L 18 93 08/07/22 21:00 56 L 20 93 08/07/22 22:00 36.9 C PG Care Time/CCT Total # of Minutes Spent Total Time Spent with Patient: Total time spent is greater than 50% in coordination of care (as documented) at patient's floor/unit and/or counseling patient: [place] [address] Subseq Hosp Care Lvl 2 Patient Type Established Diagnoses Hypotension I95.9 Stenosis of left internal carotid artery I65.22 Uncontrolled type 2 diabetes mellitus with hyperglycemia E11.65 Mixed hyperlipidemia E78.2 History of myocardial infarct at age less than 60 years I25.2 Carotid artery stenosis I65.29 Current smoker F17.200 COPD (chronic obstructive pulmonary disease) J44.9
[2022-08-08] MEDS ORDERED: SITagliptin PHOSPHATE 100 MG TAB PO SCH (09:00)
[2022-08-08] MEDS ORDERED: PSEUDOEPHEDRINE HCL 30 MG TAB PO PRN (09:41)
--- NOTE | 2022-08-08 14:06 | Pharmacy Report ---
Pharmacy Glycemic Short Note 2 - Date of Service August 08, 2022 - Glycemic Short BSG Results (Last 24 hours): 08/07/22 08/07/22 08/08/22 16:43 21:36 08:06 POC Glucose 124 H 155 H 176 H 08/08/22 10:18 POC Glucose 76 OUTPATIENT ANTIDIABETIC REGIMEN: * Farxiga 10mg qam * metformin 500mg qam * Januvia 100mg PO qam * Lantus 16 units HS * A1c: 7.9% 05/29/22 ASSESSMENT: 08/08 * Fasting 176 mg/dL this morning, will continue 16 units HS of lantus, increase if fasting continues to be above goal * Lunch BSG 76 mg/dL today, loosened novolog parameters 08/07 * Patient admitted to the ICU for postop care s/p left carotid endarterectomy * BSGs acceptable so far today. It does appear the patient took evening lantus dose last evening * Patient is ordered a diet but ate very minimally at lunch. * Will continue with home lantus dose and add a moderate stress novolog scale PLAN FOR INPATIENT GLYCEMIC CONTROL: * Hold outpatient oral diabetes medications * Basal insulin * Lantus 16 units SQ * Bolus insulin * NovoLog per scale ACHS or Q6hrs while NPO * Goal Range: Low 110 mg/dL - High 140 mg/dL * Correction Factor: 10 mg/dL/unit * Nutritional / Prandial insulin per carb ratio of 1 unit per 15 grams CHO consumed
[2022-08-08] MEDS: LANTUS PER UNIT CHARGE SQ SCH (21:07)
[2022-08-09] MEDS: oxyCODONE/ACETAMINOPHEN 5mg/325mg TAB PO PRN ×2 (03:23→08:11)
[2022-08-09] MEDS: INSULIN ASPART PER UNIT SC SCH ×2 (07:28→10:36)
[2022-08-09] MEDS: METOPROLOL SUCC 50MG EXT REL TAB PO SCH (07:29)
[2022-08-09] MEDS: amLODIPine BESYLATE 5 MG TAB PO SCH (08:07)
[2022-08-09] MEDS: ASPIRIN 81 MG ECTAB PO SCH (08:07)
[2022-08-09] MEDS: CALCIUM 600MG + VIT D 400 IU TAB PO SCH (08:07)
[2022-08-09] MEDS: PARoxetine HCL 10 MG TAB PO SCH (08:07)
[2022-08-09] MEDS: MONTELUKAST SODIUM 10 MG TABLET PO SCH (08:07)
[2022-08-09] MEDS: lisinopril 2.5 MG TAB PO SCH (08:07)
[2022-08-09] MEDS: PANTOprazole 40 MG TAB PO SCH (08:08)
[2022-08-09] MEDS: ROSUVASTATIN CALCIUM 20 MG TAB PO SCH (08:08)
[2022-08-09] MEDS: CLOPIDOGREL BISULFATE 75 MG TAB PO SCH (08:08)
--- NOTE | 2022-08-09 09:42 | Surgery Progress Note ---
Date of Service August 09, 2022 Assessment & Plan (1) S/P carotid endarterectomy: Plan: POD #2 after L CEA, pt doing well. Discussed with Dr Singh, will d/c home today. Admission and Anticipated Discharge Date Admission Date: August 07, 2022 Subjective 66yo f POD #2 after L CEA, seen in f/u today. Pt states feeling ok, just a little tired and her L neck is sore. Denies any new neuro concerns. Ambulating in room. Review of Systems Review of Systems: All systems reviewed & are unremarkable except as noted in HPI & below Physical Exam Constitutional: WD/WN, vitals as above Neck: trachea midline Respiratory: normal respiratory effort; no respiratory distress Cardiovascular: Rate/Rhythm: regular rate and regular rhythm Skin: + incision (dry and clean, no swelling) Neurologic: CN's II-XI intact bilaterally and moves all extremities Psychiatric: Orientation: alert and oriented x 3 Results & Data ([facility]) Vital Signs (Past 12 Hours) Vital Signs Temp Pulse Resp BP BP Pulse Ox O2 Del Method 08/09/22 09:21 36.5 C 60 16 124/60 93 08/09/22 07:30 36.5 C 08/09/22 07:26 16 93 Room Air 08/09/22 07:26 126/61 08/09/22 06:09 124/60 08/09/22 06:12 36.5 C 51 L 16 124/60 96 Room Air 08/08/22 21:58 37.1 C
== END 2022-08-09 13:00 | disposition home or self-care (01) | DRG 39 ==
LOC: ASU 05:55 → 1E 07:15

== ENCOUNTER 2024-02-27 06:20 | Inpatient (IN) ==
--- NOTE | 2024-02-07 13:18 | PAT Medication Instructions ---
Medication Instructions Date of Service February 07, 2024 Home Medications amlodipine 5 mg tablet 5 mg PO QAM calcium carbonate 600 mg-vitamin D3 10 mcg (400 unit) capsule 1 cap PO QAM clopidogrel 75 mg tablet 75 mg PO QAM insulin glargine 100 unit/mL (3 mL) subcutaneous pen (Basaglar KwikPen U-100 Insulin) 20 unit subcut QPM lisinopril 2.5 mg tablet 2.5 mg PO QAM metformin 500 mg tablet,extended release 24 hr 500 mg PO QAM metoprolol succinate 100 mg tablet,extended release 24 hr 100 mg PO QAM montelukast 10 mg tablet 10 mg PO QAM nitroglycerin 0.4 mg sublingual tablet 0.4 mg sublingual Q5M PRN pantoprazole 40 mg tablet,delayed release 40 mg PO QAM paroxetine HCl 10 mg tablet 10 mg PO QAM dapagliflozin propanediol 10 mg tablet (Farxiga) 5 mg PO QAM furosemide 20 mg tablet 20 mg PO QAM PRN rosuvastatin 40 mg tablet 40 mg PO QAM aspirin 325 mg tablet 325 mg PO QAM albuterol sulfate 90 mcg/actuation aerosol inhaler 1 inh inhalation QID PRN dulaglutide 0.75 mg/0.5 mL subcutaneous pen injector (Trulicity) 0.75 mg subcut WK STOP 7 days before surgery dulaglutide 0.75 mg/0.5 mL subcutaneous pen injector (Trulicity) 0.75 mg subcut WK STOP 3 days before surgery dapagliflozin propanediol 10 mg tablet (Farxiga) 5 mg PO QAM Continue as directed nitroglycerin 0.4 mg sublingual tablet 0.4 mg sublingual Q5M PRN(if needed) ASK your prescriber and surgeon clopidogrel 75 mg tablet 75 mg PO QAM aspirin 325 mg tablet 325 mg PO QAM DO NOT take the morning of surgery calcium carbonate 600 mg-vitamin D3 10 mcg (400 unit) capsule 1 cap PO QAM lisinopril 2.5 mg tablet 2.5 mg PO QAM metformin 500 mg tablet,extended release 24 hr 500 mg PO QAM furosemide 20 mg tablet 20 mg PO QAM PRN Take morning of surgery With a small sip of water, OTHERWISE NOTHING TO EAT OR DRINK AFTER MIDNIGHT: amlodipine 5 mg tablet 5 mg PO QAM metoprolol succinate 100 mg tablet,extended release 24 hr 100 mg PO QAM montelukast 10 mg tablet 10 mg PO QAM pantoprazole 40 mg tablet,delayed release 40 mg PO QAM paroxetine HCl 10 mg tablet 10 mg PO QAM rosuvastatin 40 mg tablet 40 mg PO QAM albuterol sulfate 90 mcg/actuation aerosol inhaler 1 inh inhalation QID PRN(use if needed; please bring with you to hospital day of surgery if possible) Take evening before surgery insulin glargine 100 unit/mL (3 mL) subcutaneous pen (Basaglar KwikPen U-100 Insulin) 20 unit subcut QPM albuterol sulfate 90 mcg/actuation aerosol inhaler 1 inh inhalation QID PRN(if needed) Other Notes If you have any questions please call us at [phone] or [phone] or [phone] or [phone]
--- NOTE | 2024-02-14 13:50 | Anesthesiology Consultation ---
Date of Service February 14, 2024 Assessment & Plan (1) Encounter for pre-operative examination: - check BSG am DOS. - PCP Dr. iDna Benjamin pre-op appointment per patient 02/04/24. - will request most recent cardiology, Dr. Isa Miranda, office note. - Case discussed in detail with Dr. Dent while patient was in PAT including intermittent symptoms and BP readings in clinic. Patient states she feels fully at her baseline, denies any dizziness, lightheadedness, or presyncope. She has not drank water today. Patient stood up from chair without assistance or any instability and ambulated in room including turning to pharmacy picking tech coat off chair without any abnormality or development of symptoms. Dr. Dent advised patient was acceptable to proceed with surgery as planned 02/27/24 and nothing additional was needed today or prior to surgery. Patient was instructed to call 911 if develops new or recurrence of symptoms. She was encouraged to maintain recommended adult water intake. She verbalized understanding and denied questions or concerns. Chart Review Chart Review: Pending: Refer to Additional Notes / Consult section and Patient seen in Pre Admission Testing Teaching & Discussion Pre-Anesthesia Teaching/Discussion Notes: Instructed NPO after midnight before surgery, except medications with 15 cc of water. Medication instructions provided according to the [facility] guidelines. History Surgery Operation Date: 02/27/24 09:10 Proposed Procedures p Right Carotid Endarterectomy - Wong Singh MD Height/Weight Height: 5 ft 6 in Weight: 66 kg Allergies Allergy/AdvReac Type Severity Reaction Status Date / Time adhesive tape Allergy Severe skin Verified 01/30/24 10:36 irritation No Known Drug Allergies Allergy Verified 01/30/24 10:36 Medications Home Medications Medication Instructions Recorded Confirmed Last Taken amlodipine 5 mg tablet 5 mg PO QAM 05/26/22 01/30/24 Unknown calcium carbonate 600 mg-vitamin 1 cap PO QAM 05/26/22 01/30/24 Unknown D3 10 mcg (400 unit) capsule clopidogrel 75 mg tablet 75 mg PO QAM 05/26/22 01/30/24 08/07/22 03:45 insulin glargine 100 unit/mL (3 20 unit subcut QPM 05/26/22 01/30/24 08/06/22 22:30 mL) subcutaneous pen (Basaglar KwikPen U-100 Insulin) lisinopril 2.5 mg tablet 2.5 mg PO QAM 05/26/22 01/30/24 08/06/22 09:00 metformin 500 mg tablet,extended 500 mg PO QAM 05/26/22 01/30/24 08/06/22 09:00 release 24 hr metoprolol succinate 100 mg 100 mg PO QAM 05/26/22 01/30/24 08/07/22 03:45 tablet,extended release 24 hr montelukast 10 mg tablet 10 mg PO QAM 05/26/22 01/30/24 08/06/22 09:00 nitroglycerin 0.4 mg sublingual 0.4 mg sublingual Q5M PRN chest 05/26/22 01/30/24 Unknown tablet pain pantoprazole 40 mg tablet,delayed 40 mg PO QAM 05/26/22 01/30/24 Unknown release paroxetine HCl 10 mg tablet 10 mg PO QAM 05/26/22 01/30/24 Unknown dapagliflozin propanediol 10 mg 5 mg PO QAM 06/06/22 01/30/24 08/03/22 tablet (Farxiga) furosemide 20 mg tablet 20 mg PO QAM PRN Edema 06/06/22 01/30/24 2 Weeks Ago ~07/24/22 rosuvastatin 40 mg tablet 40 mg PO QAM 08/03/22 01/30/24 Unknown aspirin 325 mg tablet 325 mg PO QAM 12/13/23 01/30/24 Unknown albuterol sulfate 90 mcg/actuation 1 inh inhalation QID PRN sob 01/30/24 01/30/24 Unknown aerosol inhaler dulaglutide 0.75 mg/0.5 mL 0.75 mg subcut WK 01/30/24 01/30/24 Unknown subcutaneous pen injector (Trulicity) Past Medical History Medical History (Updated 02/14/24 @ 15:45 by Erma Andrew PA-C) Abnormal chest CT 03/08/22: Nonspecific hazy appearance of the dependent portion of the right lung combined with mucus in the trachea suggests aspiration. There is also suggestion of a small nodule in the left mainstem bronchus. Likely noncancerous, should be followed with noncontrast CT scan in 6 months Update 01/30/24. Pt has not repeated CT. Anxiety situational CAD (coronary artery disease) total 4 stents per pt Carotid artery stenosis s/p right carotid endarterectomy 12 yrs ago; left 08/2022 [facility] Degenerative disc disease Depression situational Diabetes mellitus, type 2 IDDM GERD (gastroesophageal reflux disease) pt states symptoms breakthrough despite medication, nocturnal hiccups and regurgitation despite wedge pillow History of CVA (cerebrovascular accident) Brain MRI 10/2023 [facility]. per pt, evidence of old stroke. reports had been experiencing RUE weakness and intermittent blurred vision following Left CEA 08/2022. Last occurred yesterday with resolution-states Dr. Singh's office is aware-denies any symptoms today: following with [place] neurology History of myocardial infarct at age less than 60 years (~2004) [place] x 3, first in 2004, last 2009 Hyperlipidemia Hypertension controlled, stable per pt Myocardial infarction multiple, s/p stents Peripheral arterial disease s/p left iliac stent Transient ischemic attack (TIA) s/p right cartiod endarterectomy (12 years + ago) no problems since Patient denies h/o seizure, blood clots/DVTs or blood transfusions. Exercise / Class Metabolic Activity II 4-5 Yardwork/Stairs/Walk up hill (denies chest discomfort or shortness of breath with 1 FOS) Past Family History Family History Mother Heart disease Stroke Hypertension Hyperlipidemia Father Heart disease Dementia Diabetes Hypertension Hyperlipidemia Sister Heart disease Grandfather (Paternal) No problems noted. Other No family history of adverse response to anesthesia Past Surgical History Surgical History (Updated 02/14/24 @ 13:55 by Erma Andrew PA-C) History of cardiac cath x3 total (last one 2009) History of carotid endarterectomy left 08/2022; right 20 yrs ago History of cholecystectomy History of colonoscopy History of esophagogastroduodenoscopy (EGD) History of heart artery stent total x4 stents. (1 stent in 2004, 2 stents placed in 2008, 1 stent placed in [address] [facility]) History of surgery "bone part removal" R shoulder History of surgery on lower extremity Left leg (iliac stent placement) S/P cervical spinal fusion C3-C4-C5. 90% movement to the left. Status post de Quervain's release surgery bilat Past Anesthesia History No Family Hx of Anesthesia Complications and Other (patient reports being slow to wake and having hypotension after left CEA 08/2022; denies needing re- intubation) History of PONV No Hx of PONV and No Hx of Motion Sickness Social History Smoking Status: Current every day smoker (-advised) tobacco type: cigarettes Smoking cigarettes per day: 10 Do You Dip or Chew Tobacco: No Hx Alcohol Use: No Hx Substance Use: No substance use type: does not use Review of Systems Snoring, denies witnessed apneas. Patient denies chest pain, shortness of breath, dyspnea on exertion, fever, chills, cough, wheezing, or palpitations. Physical Exam Vital Signs Vitals BP 96/63 left arm automatic; 94/63 left arm (pt states usual BP reading is 110- 115 systolic, unsure diastolic) P 62 TEMP 97.9 SP02 94% on RA RESP 18 Physical Patient resting comfortably in chair in no acute distress, alert and oriented, non-diaphoretic, speech clear and coherent, responding appropriately throughout visit Full cervical extension range of motion without pain TMD 3.5 finger breadths Mallampati Score 2 Dentition: full upper denture; denies chipped or loose teeth, caps/crowns, implants or bridges Lungs: normal respiratory effort. Good air movement, clear throughout to auscultation, no adventitious breath sounds Cardiac: regular rate and rhythm, no murmurs noted Lab Results Anesthesia Preop Results Results Anesthesia Widget: WBC 8.46 K/ul (4.8-10.8) 02/14/24 Hgb 16.0 g/dl (12.0-16.0) 02/14/24 Hct 46.1 % (37.0-47.0) 02/14/24 Plt 190 K/uL (130-400) 02/14/24 Na 136 mmol/L (136-145) 02/14/24 K 3.7 mmol/L (3.5-5.1) 02/14/24 Cl 103 mmol/L (98-107) 02/14/24 CO2 25 mmol/L (21-32) 02/14/24 BUN 12 mg/dl (6-23) 02/14/24 Creat 0.75 mg/dl (0.6-1.2) 02/14/24 Glucose Level 123 mg/dl (70-99(Fasting)) H 02/14/24 PT 10.8 Seconds (9.0-12.0) 02/14/24 PTT 30 Seconds (21-31) 02/14/24 INR 1.0 (0.9-1.1) 02/14/24 HA1c 7.0 % (4.5-5.6) H 02/14/24 Blood Type O Positive 02/14/24 Antibody Screen NEGATIVE 02/14/24 Testing Electrocardiogram Date: 02/14/24 NSR, rate [address] and T wave abnormality Chest X-Ray Date: 02/14/24 No acute process. Other Testing Neck CTA 01/21/24 1. A 4 mm segment of high-grade stenosis within the proximal right internal carotid artery of approximately 90%. 2. A 1 cm segment of mild to moderate stenosis within the proximal left internal carotid artery. 3. Focal area of 50% stenosis at the distal right common carotid artery. 4. Mild focal stenosis at the takeoff of the right vertebral artery due to the calcified plaque. 5. Prior right carotid endarterectomy. 6. Mild emphysema. Brain MRI 10/05/23 Multiple focal lesions scattered throughout the brain which demonstrate FLAIR hyperintensity. Many of these lesions on the left also demonstrate hyperintensity on the diffusion-weighted sequence. Of these, 2 show very questionable hypointensity on the ADC trace map. A finding of hyperintensity on the ADC trace map is strongly concerning for acute embolic strokes however, the ADC trace map findings are very subtle or non-existent which is more suggestive of subacute embolic strokes or T2 shine through artifact. Additional differential considerations for this constellation of findings include chronic microvascular ischemic changes, demyelinating disorders such as MS and inflammatory disorders such as Lyme disease. Migraines can present with a similar appearance but are considered less likely.
[2024-02-27] MEDS ORDERED: ePHEDrine sulfate 50 MG/ML AMP IV PRN (06:52)
[2024-02-27] MEDS ORDERED: LABETALOL HCL IV 5 MG/ML 20ML IV PRN (06:52)
[2024-02-27] MEDS ORDERED: PROMETHAZINE HCL 6.25 MG in SODIUM CHLORIDE 0.9% 50 ML IV PRN (06:52)
[2024-02-27] MEDS ORDERED: NALOXONE HCL 0.4 MG/1 ML VIAL/CARP IV PRN (06:52)
[2024-02-27] MEDS ORDERED: fentaNYL citrate PF 100 MCG/2 ML VIAL IV PRN (06:52)
[2024-02-27] MEDS ORDERED: ONDANSETRON INJ 2 MG/ML 2 ML VIAL IV PRN ×2 (06:52→09:55)
[2024-02-27] MEDS ORDERED: FLUMAZENIL 0.1 MG/1 ML 10 ML VIAL IV PRN (06:52)
[2024-02-27] MEDS ORDERED: ATROPINE SULFATE 0.1 MG/ML 10ML SYR IV PRN (06:52)
[2024-02-27] MEDS ORDERED: ETOMIDATE 2 MG/ML 20 ML VIAL IV ONE (07:13)
[2024-02-27] MEDS ORDERED: HEPARIN SOD (PORCINE) 1000 UNIT/ML ONE (07:16)
[2024-02-27] MEDS ORDERED: PROPOFOL IV EMULSION 10 MG/ML 20 ML VIAL IV ONE (07:16)
[2024-02-27] MEDS ORDERED: fentaNYL citrate PF 100 MCG/2 ML VIAL ONE ×2 (07:17→08:44)
[2024-02-27] MEDS ORDERED: MIDAZOLAM HCL 1 MG/ML 2ML VIAL ONE (07:18)
[2024-02-27] MEDS: LACTATED RINGER'S 1,000 ML IV SCH ×2 (07:20→14:29)
[2024-02-27] MEDS ORDERED: CISATRACURIUM BESYLATE IV SOLN 2 MG/ML 10 ML VIAL IV ONE (07:21)
--- NOTE | 2024-02-27 07:41 | History & Physical Report ---
Date of Service February 27, 2024 History of Present Illness Primary Care Provider: Dina Benjamin DO Chief Complaint rm#[id number] here for f/u after CTA Subjective I had the pleasure of seeing Kaylee today in follow-up. As you know she is a 68-year-old female whose had a carotid endarterectomy on the left side in the past. She is also had a right carotid done years ago. She was seen in another hospital for right-handed weakness and double vision. Her MRI showed multiple lesions in both sides. CT scan was suggestive of a restenosis of the right internal carotid artery. She has no residual deficits at this point. She is here for her results of her CT angiogram. She has no complaints of cerebrovascular insufficiency. Objective Vitals & Measurements HR: 67 (Monitored) BP: 110/54 SpO2: 97% Physical Exam On exam she is awake alert and oriented x 3. She is in no apparent distress. Her blood pressure is 110/54. Her lungs are clear. Her heart has a RRR. Abdominal exam is benign. Her radials are +2 bilaterally. She does have soft carotid bruits. Femorals are +2 and pedal's are +2 bilaterally. Neurologic exam intact motor and sensory function. Diagnostic Results I reviewed her CT angiogram films which showed a severe greater than 90% narrowing of the right internal carotid artery and approximately a 60% restenosis of the left internal carotid artery just beyond the origin. Assessment/Plan 1. Carotid stenosis This point being that she is asymptomatic and does no intervention is needed for the left side. However the right side has a severe preocclusive lesion in need of intervention. She is not a TCAR candidate due to the fact that her distance from her clavicle to the beginning of her plaque is less than 5 cm. She therefore will require an endarterectomy. We went over the risks options and benefits and she is agreeable to go ahead with this procedure. The risks and options and benefits are documented in the consent form. Thank you very much for letting us participate in the care of this patient. Sincerely, Winsome Singh MD I have personally spent __35___ minutes performing [id number] and [id number] activities on this date of service. Activities Include: _x_ review of the medical record _x_ obtaining a history _x_ physical exam/evaluation __ review labs __ review radiology reports _x_ counseling/educating patient/family/caregiver __ discussion/referral to other healthcare professional _x_ documenting care in the medical record _x_ independent interpretation of results cta done at [facility] __ communication of results to patient/family/caregiver __ coordination of care Signature Line Electronic Signature on File Wong Singh MD Author Signature Dt/Tm: 01/28/2024 02:15 PM Vocational Guidance Counselor [place] S. [address] [address] Electronically Reviewed/Signed by: Wong Singh MD Cosigner Signature Dt/Tm: 01/28/2024 02:16 PM Vocational Guidance Counselor [place] Homa [address] [address] EJS Result Type: .Outpt Ltr Date of Service: January 28, 2024 14:12 EDT Authorization Status: Modified Subject: Follow Up Visit Author or Import Date: MD Singh Eugene J on January 28, 2024 14:15 EDT Verified By: MD Singh Eugene J on January 28, 2024 14:15 EDT Encounter info: [id number], [place] [id number], Clinic, 01/28/2024 - 01/28/2024 Allergies Allergy/AdvReac Type Severity Reaction Status Date / Time adhesive tape Allergy Severe skin Verified 01/30/24 10:36 irritation No Known Drug Allergies Allergy Verified 01/30/24 10:36 Home Medications Medication Instructions Recorded Confirmed Type amlodipine 5 mg tablet 5 mg PO QAM 05/26/22 02/27/24 History calcium carbonate 600 mg-vitamin 1 cap PO QAM 05/26/22 02/27/24 History D3 10 mcg (400 unit) capsule clopidogrel 75 mg tablet 75 mg PO QAM 05/26/22 02/27/24 History insulin glargine 100 unit/mL (3 20 unit subcut QPM 05/26/22 02/27/24 History mL) subcutaneous pen (Basaglar KwikPen U-100 Insulin) lisinopril 2.5 mg tablet 2.5 mg PO QAM 05/26/22 02/27/24 History metformin 500 mg tablet,extended 500 mg PO QAM 05/26/22 02/27/24 History release 24 hr metoprolol succinate 100 mg 100 mg PO QAM 05/26/22 02/27/24 History tablet,extended release 24 hr montelukast 10 mg tablet 10 mg PO QAM 05/26/22 02/27/24 History nitroglycerin 0.4 mg sublingual 0.4 mg sublingual Q5M PRN chest 05/26/22 02/27/24 History tablet pain pantoprazole 40 mg tablet,delayed 40 mg PO QAM 05/26/22 02/27/24 History release paroxetine HCl 10 mg tablet 10 mg PO QAM 05/26/22 02/27/24 History dapagliflozin propanediol 10 mg 5 mg PO QAM 06/06/22 02/27/24 History tablet (Farxiga) furosemide 20 mg tablet 20 mg PO QAM PRN Edema 06/06/22 02/27/24 History rosuvastatin 40 mg tablet 40 mg PO QAM 08/03/22 02/27/24 History aspirin 325 mg tablet 325 mg PO QAM 12/13/23 02/27/24 History albuterol sulfate 90 mcg/actuation 1 inh inhalation QID PRN sob 01/30/24 02/27/24 History aerosol inhaler dulaglutide 0.75 mg/0.5 mL 0.75 mg subcut WK 01/30/24 02/27/24 History subcutaneous pen injector (Trulicity) Past Med/Surg History Medical History History of CVA (cerebrovascular accident) Brain MRI 10/2023 [facility]. per pt, evidence of old stroke. reports had been experiencing RUE weakness and intermittent blurred vision following Left CEA 08/2022. Last occurred yesterday with resolution-states Dr. Singh's office is aware-denies any symptoms today: following with [place] neurology Myocardial infarction multiple, s/p stents Abnormal chest CT 03/08/22: Nonspecific hazy appearance of the dependent portion of the right lung combined with mucus in the trachea suggests aspiration. There is also s uggestion of a small nodule in the left mainstem bronchus. Likely noncancerous, should be followed with noncontrast CT scan in 6 months Update 01/30/24. Pt has not repeated CT. Peripheral arterial disease s/p left iliac stent CAD (coronary artery disease) total 4 stents per pt Carotid artery stenosis s/p right carotid endarterectomy 12 yrs ago; left 08/2022 [facility] Degenerative disc disease GERD (gastroesophageal reflux disease) pt states symptoms breakthrough despite medication, nocturnal hiccups and regurgitation despite wedge pillow Diabetes mellitus, type 2 IDDM Depression situational Anxiety situational Transient ischemic attack (TIA) s/p right cartiod endarterectomy (12 years + ago) no problems since Hyperlipidemia Hypertension controlled, stable per pt History of myocardial infarct at age less than 62 years (~2004) [place] x 3, first in 2004, last 2009 Surgical History History of surgery "bone part removal" R shoulder S/P cervical spinal fusion C3-C4-C5. 90% movement to the left. History of esophagogastroduodenoscopy (EGD) History of colonoscopy History of carotid endarterectomy left 08/2022; right 20 yrs ago Status post de Quervain's release surgery bilat History of cardiac cath x3 total (last one 2009) History of cholecystectomy History of heart artery stent total x4 stents. (1 stent in 2004, 2 stents placed in 2008, 1 stent placed in 2009 at [facility]) History of surgery on lower extremity Left leg (iliac stent placement) Family History Mother Heart disease Stroke Hypertension Hyperlipidemia Father Heart disease Dementia Diabetes Hypertension Hyperlipidemia Sister Heart disease Grandfather (Paternal) No problems noted. Other No family history of adverse response to anesthesia Social History Smoking Status: Current every day smoker (-advised) Tobacco Type: Cigarettes packs per day: 0.5; Cigarettes Per Day: 10; Second Hand Exposure: No; Do You Dip or Chew Tobacco: No; Tobacco Cessation Education Requested by Patient: No Hx Alcohol Use: No Hx Substance Use: No Preferred Language: Cambodian Communication Ability: Effective Diesel Dinkey Engineer Required: No Beliefs That Will Affect Care: None marital status: / Current Living Situation: Family Current Living Situation Comment: lives with sons x2 How many Children do You have: 2 Feels Safe at Home: Yes Safety Concerns: Feels Safe At This Time Assistive Devices: Denture - Upper and Glasses Review of Systems All systems reviewed & are unremarkable except as noted in HPI & below Results & Data Vital Signs (Past 12 Hours) Vital Signs Temp Pulse Resp BP BP Pulse Ox O2 Del Method 02/27/24 06:57 36.6 C 63 18 135/70 129/64 97 Room Air
--- NOTE | 2024-02-27 07:41 | History & Physical Bridge Note ---
Date of Service February 27, 2024 History & Physical Bridge Note I have examined the patient, reviewed the History & Physical and in the interval since the performance of the History & Physical I have noted the following changes of clinical significance: no changes noted
[2024-02-27] MEDS: CEFAZOLIN 2,000 MG/15 ML SYR IV SCH (08:28)
[2024-02-27] MEDS ORDERED: SUCCINYLCHOLINE 100MG/5ML SYR IV ONE (09:12)
[2024-02-27] MEDS ORDERED: NEOSTIGMINE METHYLSULFATE 1 MG/ML 10ML VIAL ONE (09:12)
[2024-02-27] MEDS ORDERED: GLYCOPYRROLATE 0.2 MG/ML VIAL ONE (09:13)
[2024-02-27] MEDS ORDERED: PHENYLEPHRINE 100MCG/ML 10ML SYR IV ONE (09:19)
[2024-02-27] MEDS ORDERED: ePHEDrine sulfate 50 MG/5 ML SYR ONE (09:19)
[2024-02-27] MEDS: GELATIN SPONGE SZ 100 ONE ×2 (09:53)
[2024-02-27] MEDS: HEPARIN (PORCINE) 1000 UNIT/ML 10 ML (CATH LAB USE ONLY) ONE (09:55)
[2024-02-27] MEDS: BUPIVACAINE/EPINEPHRINE 0.5% MPF 1:200,000 30 ML VIAL ONE (09:55)
[2024-02-27] MEDS: ceFAZolin 330 MG/ML 1 GM VIAL ONE (09:56)
[2024-02-27] MEDS: LIDOCAINE 1% LOCAL 20 ML VIAL ONE (09:56)
[2024-02-27] MEDS: THROMBIN FOR SOLN 20000 UNIT KIT ONE (09:57)
[2024-02-27] MEDS ORDERED: ALBUTEROL HFA 8 GM INHALER INH PRN (09:58)
[2024-02-27] MEDS ORDERED: NITROGLYCERIN SL 0.4 MG/TAB TAB SL PRN (09:58)
--- NOTE | 2024-02-27 10:08 | Operative Report ---
Post Operative Report Pre & Post Diagnosis Operation Date: 02/27/24 08:00 Pre-Op Diagnosis: Recurrent Right Carotid Artery Stenosis Post-Op Diagnosis: Recurrent Right Carotid Artery Stenosis I identified the patient and participated in the time-out.: Yes Procedure Operation Date: 02/27/24 08:00 Actual Procedures p Right Carotid Endarterectomy(Right) - Wong Singh MD Surgeon Wong Singh MD [employer] On [employer] Estimated Blood Loss 25 Findings Consistent with Post-Op Diagnosis Specimens carotid plaque Anesthesia Type General Complications none Disposition Accompanied Patient To Recovery: No Disposition: Recovery Room Indications This is a 68-year-old female who had a right carotid artery done years ago. She has now developed a restenosis which was found when admitted for a TIA involving her right arm. Her left carotid had no significant narrowing. The left sided undergone an endarterectomy and 2021. She is now admitted for a redo right carotid enterectomy. I have discussed the risks options and benefits of the procedure with the patient. The patient understands the risks options and benefits and agrees to the procedure. Description of Procedure The patient was taken to the operating room and placed in supine position. After general anesthesia was accomplished the right side of the neck was prepped and draped in a sterile manner. The patient was identified and a timeout performed. A longitudinal neck incision was then made coursing along the medial border of the sternocleidomastoid muscle. The incision was taken down through the platysmal layer. The common carotid bifurcation is extremely low on the side of the neck. The common carotid artery was then seen. It was dissected free down to the omohyoid muscle. The dissection was carried upward until the external carotid artery The external carotid was slung with a red rubber vessel loop. Next the dissection was carried up along the internal carotid artery. This was carried upward to beyond the area of narrowing. The hypoglossal nerve was well above the surgical area. The patient was heparinized. After adequate heparinization was accomplished, the internal, external, and common carotid arteries were clamped. A longitudinal arteriotomy was started on the common carotid artery and extended upward along the internal carotid artery to a point beyond the area of narrowing. There was calcified plaque of the internal carotid artery origin causing approximately 85-90% narrowing. There is also significant amount of fibrous hyperplasia from the previously placed patent endarterectomy site. A Doppler shunt was then placed in the internal, followed by the common carotid artery and held in place with Kleber clamps. There was good back bleeding seen from the internal carotid artery. The endarterectomy was then started in the appropriate plane on the common carotid artery. This was carried upward and the external carotid was everted and endarterectomized. The endarterectomy was then carried up along the internal carotid artery till a nice feathering breakoff point was accomplished beyond the end of the plaque. The endarterectomy was then carried down further on the common carotid artery. At end of the arteriotomy, the plaque was then transected. Under loop magnification, all loose debris and flaps werer removed. There is no distal flap seen at the end of the endarterectomy site. We still however placed 2 tacking stitches into the distal breakoff point on the internal carotid. The arteriotomy then closed using a bovine patch and a running 6-0 Prolene suture. This was done in the usual vascular fashion. Prior to completing the closure, the doppler shunt was removed and the internal and common carotid arteries were reclamped. Backbleeding and forward bleeding was allowed to occur. The flow surface was irrigated with heparinized saline. The final few sutures were then placed and securely tied. Clamps were then removed off the external and common carotid arteries. The clamp was then removed the internal carotid artery. Good distal flow was seen. Adequate hemostasis was seen of the patch. The wound was inspected and adequate hemostasis was obtained. The wound was irrigated with antibiotic solution. It was then closed with a running 3-0 Vicryl suture for the platysmal layer and a 4-0 subcuticular Vicryl suture for the skin edges. Dermabond was used for dressing. The patient left the operation room in satisfactory condition and tolerated the procedure well. All needle and sponge counts were correct at the end of the procedure. Charley Alston Pac assisted due to lack of resident availability and was necessary for prepping, draping, retraction, wound closure defects, subQ and skin closure and was necessary for the case. I attest to the content of the Intraoperative Record and any orders documented therein. Any exceptions are noted below.
--- NOTE | 2024-02-27 11:01 | Anesthesiology Progress Note ---
Date of Service February 27, 2024 Anesthesia Post Procedure Vital Signs Vital Signs: Temp Pulse Pulse Resp BP BP BP 02/27/24 10:45 75 17 156/54 H 130/61 02/27/24 10:35 78 22 136/49 L 126/63 02/27/24 10:25 83 22 152/51 H 141/65 H 02/27/24 10:16 36.2 C L 91 H 18 174/64 H 141/69 H 02/27/24 06:57 36.6 C 63 18 135/70 129/64 Pulse Ox O2 Del Method O2 Flow Rate 02/27/24 10:45 98 Nasal Cannula 2 02/27/24 10:35 98 Nasal Cannula 2 02/27/24 10:25 98 Oxymask 4 02/27/24 10:16 98 Oxymask 6 02/27/24 06:57 97 Room Air Transfer of Care Handoff Completed per policy Notes Mental Status: alert / awake / arousable Patient Amnestic to Procedure: Yes Nausea / Vomiting: adequately controlled Pain: adequately controlled Airway Patency, RR, SpO2: stable & adequate BP & HR: stable & adequate Hydration State: stable & adequate Anesthetic Complications: no major complications apparent
--- NOTE | 2024-02-27 12:49 | Critical Care Consultation ---
Date of Consultation February 27, 2024 Assessment & Plan (1) S/P carotid endarterectomy: (2) COPD (chronic obstructive pulmonary disease): (3) Current smoker: (4) Hypertension: (5) Uncontrolled type 2 diabetes mellitus with hyperglycemia: (6) Mixed hyperlipidemia: Plan -- Carotid artery stenosis S/p right carotid endarterectomy 02/27/[address] Singh History of left carotid endarterectomy done 08/07/[address] Singh Continue with neurochecks Follow-up H&H Monitor blood pressure -- Dyslipidemia Continue with statin -- Hypertension On amlodipine, metoprolol at home --COPD with current smoker Greater than [id number] smoking history Encouraged to quit Recommend outpatient PFT Keep O2 saturation between 90-92% --Diabetes Continue with ICU hypoglycemia protocol --Anxiety/depression Continue with paroxetine --Prophylaxis VTE: IPC GI: Pantoprazole Lines: Left radial, peripheral Diet: Cardiac Plan: Continue with neurochecks. Monitor H&H Keep O2 saturation between 90-92%, try to take the patient off oxygen if possible Patient complaining of some cough which is likely secondary to the intubation. Will put her on Mucinex Incentive spirometry Please note the above document was generated using voice recognition software. It may contain grammatical, syntax or spelling errors.Any formal questions or concerns about the content, text or information contained within the body of this dictation should be directly addressed to the provider for clarification. History of Present Illness Attending Physician: Wong Singh MD History of Present Illness 68-year-old female admitted to the ICU for postop care s/p right carotid endarterectomy Past medical history: History of CVA, diabetes, GERD, COPD, dyslipidemia, depression, history of left carotid endarterectomy August 2022 At the time of examination patient was resting comfortably in the bed Her systolic blood pressure was in the 140s, heart rate in the 80s. She was not in any respiratory distress. Complains of mild soreness at the site of the incision which was dry and clean. Complained of headache after coming to the ICU but it resolved after drinking her coffee. Denies any blurry vision No nausea vomiting No shortness of breath, no chest pain Social history: Greater than [id number] smoking history, currently smoking half a pack a day. No history of lung cancer in the family Allergies Allergy/AdvReac Type Severity Reaction Status Date / Time adhesive tape Allergy Severe skin Verified 01/30/24 10:36 irritation No Known Drug Allergies Allergy Verified 01/30/24 10:36 Home Medications Medication Instructions Recorded Confirmed Type amlodipine 5 mg tablet 5 mg PO QAM 05/26/22 02/27/24 History calcium carbonate 600 mg-vitamin 1 cap PO QAM 05/26/22 02/27/24 History D3 10 mcg (400 unit) capsule clopidogrel 75 mg tablet 75 mg PO QAM 05/26/22 02/27/24 History insulin glargine 100 unit/mL (3 20 unit subcut QPM 05/26/22 02/27/24 History mL) subcutaneous pen (Basaglar KwikPen U-100 Insulin) lisinopril 2.5 mg tablet 2.5 mg PO QAM 05/26/22 02/27/24 History metformin 500 mg tablet,extended 500 mg PO QAM 05/26/22 02/27/24 History release 24 hr metoprolol succinate 100 mg 100 mg PO QAM 05/26/22 02/27/24 History tablet,extended release 24 hr montelukast 10 mg tablet 10 mg PO QAM 05/26/22 02/27/24 History nitroglycerin 0.4 mg sublingual 0.4 mg sublingual Q5M PRN chest 05/26/22 02/27/24 History tablet pain pantoprazole 40 mg tablet,delayed 40 mg PO QAM 05/26/22 02/27/24 History release paroxetine HCl 10 mg tablet 10 mg PO QAM 05/26/22 02/27/24 History dapagliflozin propanediol 10 mg 5 mg PO QAM 06/06/22 02/27/24 History tablet (Farxiga) furosemide 20 mg tablet 20 mg PO QAM PRN Edema 06/06/22 02/27/24 History rosuvastatin 40 mg tablet 40 mg PO QAM 08/03/22 02/27/24 History aspirin 325 mg tablet 325 mg PO QAM 12/13/23 02/27/24 History albuterol sulfate 90 mcg/actuation 1 inh inhalation QID PRN sob 01/30/24 02/27/24 History aerosol inhaler dulaglutide 0.75 mg/0.5 mL 0.75 mg subcut WK 01/30/24 02/27/24 History subcutaneous pen injector (Trulicity) Patient History Medical History History of CVA (cerebrovascular accident) Brain MRI 10/2023 [facility]. per pt, evidence of old stroke. reports had been experiencing RUE weakness and intermittent blurred vision following Left CEA 08/2022. Last occurred yesterday with resolution-states Dr. Singh's office is aware-denies any symptoms today: following with [place] neurology Myocardial infarction multiple, s/p stents Abnormal chest CT 03/08/22: Nonspecific hazy appearance of the dependent portion of the right mira ng combined with mucus in the trachea suggests aspiration. There is also suggestion of a small nodule in the left mainstem bronchus. Likely noncancerous, should be followed with noncontrast CT scan in 6 months Update 01/30/24. Pt has not repeated CT. Peripheral arterial disease s/p left iliac stent CAD (coronary artery disease) total 4 stents per pt Carotid artery stenosis s/p right carotid endarterectomy 12 yrs ago; left 08/2022 [facility] Degenerative disc disease GERD (gastroesophageal reflux disease) pt states symptoms breakthrough despite medication, nocturnal hiccups and regurgitation despite wedge pillow Diabetes mellitus, type 2 IDDM Depression situational Anxiety situational Transient ischemic attack (TIA) s/p right cartiod endarterectomy (12 years + ago) no problems since Hyperlipidemia Hypertension controlled, stable per pt History of myocardial infarct at age less than 60 years (~2004) CT x 3, first in 2004, last 2009 Surgical History History of surgery "bone part removal" R shoulder S/P cervical spinal fusion C3-C4-C5. 90% movement to the left. History of esophagogastroduodenoscopy (EGD) History of colonoscopy History of carotid endarterectomy left 08/2022; right 20 yrs ago Status post de Quervain's release surgery bilat History of cardiac cath x3 total (last one 2009) History of cholecystectomy History of heart artery stent total x4 stents. (1 stent in 2004, 2 stents placed in 2008, 1 stent placed in 2009 at [facility]) History of surgery on lower extremity Left leg (iliac stent placement) Family History Mother Heart disease Stroke Hypertension Hyperlipidemia Father Heart disease Dementia Diabetes Hypertension Hyperlipidemia Sister Heart disease Grandfather (Paternal) No problems noted. Other No family history of adverse response to anesthesia Social History Smoking Status: Current every day smoker (-advised) Tobacco Type: Cigarettes packs per day: 0.5; Cigarettes Per Day: 10; Second Hand Exposure: No; Do You Dip or Chew Tobacco: No; Tobacco Cessation Education Requested by Patient: No Hx Alcohol Use: No Hx Substance Use: No Preferred Language: [place] Communication Ability: Effective Plaque Maker Required: No Beliefs That Will Affect Care: None marital status: / Current Living Situation: Family Current Living Situation Comment: lives with sons x2 How many Children do You have: 2 Feels Safe at Home: Yes Safety Concerns: Feels Safe At This Time Assistive Devices: Denture - Upper and Glasses Review of Systems Review of Systems: All systems reviewed & are unremarkable except as noted in HPI & below Physical Exam Physical Exam: Constitutional: No acute distress HEENT: EOMI, PERRLA, right neck incision clean Respiratory system: Decreased air entry bilaterally, no wheeze, rhonchi, positive crackles bilateral lower lobes CVS: S1-S2 positive, no murmurs or gallops Abdomen: Soft, nontender, nondistended, positive bowel sounds x4 Extremities: +2 pulses bilaterally radialis/ dorsalis pedis, no cyanosis, no edema Neuro: Awake alert oriented x3 Psych: Normal mood and affect Skin: no rashes, warm and dry Lymphatic: no cervical or axillary lymphadenopathy Results & Data Results & Data Vital Signs (Past 12 Hours) Vital Signs Temp Pulse Pulse Resp BP BP BP 02/27/24 11:15 72 18 135/48 L 120/57 L 02/27/24 11:05 36.4 C L 73 16 138/50 L 120/57 L 02/27/24 10:55 75 18 144/52 H 127/61 02/27/24 10:45 75 17 156/54 H 130/61 02/27/24 10:35 78 22 136/49 L 126/63 02/27/24 10:25 83 22 152/51 H 141/65 H 02/27/24 10:16 36.2 C L 91 H 18 174/64 H 141/69 H 02/27/24 06:57 36.6 C 63 18 135/70 129/64 Pulse Ox O2 Del Method O2 Flow Rate 02/27/24 11:15 92 Nasal Cannula 2 02/27/24 11:05 92 Nasal Cannula 2 02/27/24 10:55 93 Nasal Cannula 2 02/27/24 10:45 98 Nasal Cannula 2 02/27/24 10:35 98 Nasal Cannula 2 02/27/24 10:25 98 Oxymask 4 02/27/24 10:16 98 Oxymask 6 02/27/24 06:57 97 Room Air Coding Level of Care Code 72833 IN/OBS CONSULT LVL 4,60M Diagnoses S/P carotid endarterectomy Z98.890 COPD (chronic obstructive pulmonary disease) J44.9 Current smoker F17.200 Hypertension I10 Uncontrolled type 2 diabetes mellitus with hyperglycemia E11.65 Mixed hyperlipidemia E78.2
[2024-02-27] MEDS: oxyCODONE/ACETAMINOPHEN 5mg/325mg TAB PO PRN (14:28)
[2024-02-27] MEDS ORDERED: PHARMACY GLYCEMIC MGMT CONSULT PRN (14:54)
[2024-02-27] MEDS ORDERED: GLUCAGON FOR INJ 1 MG VIAL IM PRN (15:15)
[2024-02-27] MEDS ORDERED: CARBOHYDRATES FOR HYPOGLYCEMIA PO PRN (15:15)
[2024-02-27] MEDS ORDERED: GLUCOSE 10 TAB/TUBE PO PRN (15:15)
[2024-02-27] MEDS ORDERED: GLUCOSE 40% GEL 15 GM TUBE PO PRN (15:15)
[2024-02-27] MEDS ORDERED: DEXTROSE 50% 50 ML SYRINGE IV PRN (15:15)
[2024-02-27] MEDS: ceFAZolin 2000MG 2,000 MG/15 ML SYR IV SCH (16:41)
[2024-02-27] MEDS: INSULIN ASPART PER UNIT CHARGE SC SCH (16:42)
[2024-02-27] MEDS: MoRPHine SULFATE 4 MG/ML 1 ML CARP\\VIAL IV PRN (20:32)
[2024-02-27] MEDS: guaiFENesin 600 MG TABCR PO SCH (20:33)
[2024-02-27] MEDS: LANTUS PER UNIT CHARGE SC SCH (20:40)
[2024-02-27] MEDS ORDERED: LANTUS PER UNIT CHARGE SQ SCH (21:00)
--- NOTE | 2024-02-28 07:44 | Critical Care Progress Note ---
Date of Service February 28, 2024 Assessment & Plan (1) S/P carotid endarterectomy: (2) COPD (chronic obstructive pulmonary disease): (3) Current smoker: (4) Hypertension: (5) Uncontrolled type 2 diabetes mellitus with hyperglycemia: (6) Mixed hyperlipidemia: Plan -- Carotid artery stenosis S/p right carotid endarterectomy 02/27/[address] Singh History of left carotid endarterectomy done 08/07/[address] Singh Continue with neurochecks Follow-up H&H Monitor blood pressure -- Dyslipidemia Continue with statin -- Hypertension On amlodipine, metoprolol at home --COPD with current smoker Greater than [id number] smoking history Encouraged to quit Recommend outpatient PFT Keep O2 saturation between 90-92% --Diabetes Continue with ICU hypoglycemia protocol --Anxiety/depression Continue with paroxetine --Prophylaxis VTE: IPC GI: Pantoprazole Lines: peripheral Diet: Cardiac Plan: Swallow eval has been ordered. Radial line being discontinued Disposition as per vascular surgery Please note the above document was generated using voice recognition software. It may contain grammatical, syntax or spelling errors.Any formal questions or concerns about the content, text or information contained within the body of this dictation should be directly addressed to the provider for clarification. Admission and Anticipated Discharge Date Admission Date: February 27, 2024 Subjective Patient seen and examined at bedside. No acute distress, no dressings overnight Patient has been complaining of sore throat. She is also having difficulty swallowing this is not new to her. She even had difficulty swallowing her prior to the surgery Denies any chest pain, no shortness of breath, no headache, no nausea, no vomiting No blurry vision. Blood pressure was in the 120s at the time of examination with heart rate in the high 60s Review of Systems Review of Systems: All systems reviewed & are unremarkable except as noted in Subjective Physical Exam Physical Exam: Constitutional: No acute distress HEENT: EOMI, PERRLA, right neck incision clean Respiratory system: Decreased air entry bilaterally, no wheeze, rhonchi, positive crackles bilateral lower lobes CVS: S1-S2 positive, no murmurs or gallops Abdomen: Soft, nontender, nondistended, positive bowel sounds x4 Extremities: +2 pulses bilaterally radialis/ dorsalis pedis, no cyanosis, no edema Neuro: Awake alert oriented x3, cranial nerves II through XII grossly intact Psych: Normal mood and affect Skin: no rashes, warm and dry Lymphatic: no cervical or axillary lymphadenopathy Results & Data Results & Data Vital Signs (Past 12 Hours) Vital Signs Temp Pulse Resp BP Pulse Ox O2 Del Method 02/28/24 05:00 64 12 93 02/28/24 05:00 107/62 02/28/24 04:00 36.7 C 02/28/24 04:00 63 13 92 02/28/24 04:00 112/57 L 02/28/24 04:00 63 112/57 L 02/28/24 03:01 71 19 94 02/28/24 03:01 112/85 02/28/24 03:00 68 14 94 02/28/24 02:05 67 13 94 02/28/24 01:00 66 14 93 02/28/24 01:00 110/63 02/28/24 00:00 67 14 93 02/28/24 00:00 133/61 02/27/24 23:24 66 105/70 02/27/24 23:24 67 02/27/24 23:08 66 8 L 97 02/27/24 23:08 146/72 H 02/27/24 23:01 75 23 02/27/24 22:30 67 14 93 02/27/24 22:00 68 18 93 02/27/24 22:00 148/65 H 02/27/24 21:30 70 15 93 02/27/24 21:00 150/72 H 02/27/24 21:00 70 16 94 02/27/24 20:52 182/73 H 02/27/24 20:52 69 18 96 02/27/24 20:30 73 18 95 02/27/24 20:30 Room Air 02/27/24 20:00 74 13 95 Coding Level of Care Code 69685 SUB INP/OBS CARE 2/35MIN Diagnoses S/P carotid endarterectomy Z98.890 COPD (chronic obstructive pulmonary disease) J44.9 Current smoker F17.200 Hypertension I10 Uncontrolled type 2 diabetes mellitus with hyperglycemia E11.65 Mixed hyperlipidemia E78.2
--- NOTE | 2024-02-28 07:59 | Surgery Progress Note ---
Date of Service February 28, 2024 Assessment & Plan (1) S/P carotid endarterectomy: Plan: Patient doing well post redo left cea. She has had chronic problems with swallowing since her previous endarts. Will order swallowing study. She is swallowing without choking at this time. Will send to floor Admission and Anticipated Discharge Date Admission Date: February 27, 2024 Subjective Patient complaining of pain with swallowing. Denies any focal deficits. Physical Exam Constitutional: WD/WN, vitals as above Neck: trachea midline Respiratory: normal respiratory effort; no respiratory distress Cardiovascular: Rate/Rhythm: regular rate and regular rhythm Gastrointestinal (Abdomen): Inspection/Auscultation: abdomen normal to inspection Skin: + incision (dry and clean) Neurologic: CN's II-XI intact bilaterally and moves all extremities Psychiatric: Orientation: alert and oriented x 3 Results & Data Vital Signs (Past 12 Hours) Vital Signs Temp Pulse Resp BP Pulse Ox O2 Del Method 02/28/24 05:00 64 12 93 02/28/24 05:00 107/62 02/28/24 04:00 36.7 C 02/28/24 04:00 63 13 92 02/28/24 04:00 112/57 L 02/28/24 04:00 63 112/57 L 02/28/24 03:01 71 19 94 02/28/24 03:01 112/85 02/28/24 03:00 68 14 94 02/28/24 02:05 67 13 94 02/28/24 01:00 66 14 93 02/28/24 01:00 110/63 02/28/24 00:00 67 14 93 02/28/24 00:00 133/61 02/27/24 23:24 66 105/70 02/27/24 23:24 67 02/27/24 23:08 66 8 L 97 02/27/24 23:08 146/72 H 02/27/24 23:01 75 23 02/27/24 22:30 67 14 93 02/27/24 22:00 68 18 93 02/27/24 22:00 148/65 H 02/27/24 21:30 70 15 93 02/27/24 21:00 150/72 H 02/27/24 21:00 70 16 94 02/27/24 20:52 182/73 H 02/27/24 20:52 69 18 96 02/27/24 20:30 73 18 95 02/27/24 20:30 Room Air 02/27/24 20:00 74 13 95
[2024-02-28] MEDS: MONTELUKAST SODIUM 10 MG TABLET PO SCH (08:39)
[2024-02-28] MEDS: PARoxetine HCL 10 MG TAB PO SCH (08:39)
[2024-02-28] MEDS: ROSUVASTATIN CALCIUM 20 MG TAB PO SCH (08:39)
[2024-02-28] MEDS: PANTOprazole 40 MG TAB PO SCH (08:39)
[2024-02-28] MEDS: CLOPIDOGREL BISULFATE 75 MG TAB PO SCH (08:40)
[2024-02-28] MEDS: METOPROLOL SUCC 50MG EXT REL TAB PO SCH (08:40)
[2024-02-28] MEDS: metFORMIN HCL ER 500 MG TABCR PO SCH (08:40)
[2024-02-28] MEDS: CALCIUM 600MG + VIT D 400 IU TAB PO SCH (08:40)
[2024-02-28] MEDS: FUROSEMIDE 20 MG TAB PO PRN (08:40)
[2024-02-28] MEDS: ASPIRIN 325 MG ECTAB PO SCH (08:40)
[2024-02-28] MEDS: lisinopril 2.5 MG TAB PO SCH (08:40)
[2024-02-28] MEDS: amLODIPine BESYLATE 5 MG TAB PO SCH (09:25)
--- NOTE | 2024-02-28 13:43 | Pharmacy Report ---
Pharmacy Glycemic Short Note 2 - Date of Service February 28, 2024 - Glycemic Short BSG Results (Last 24 hours): 02/27/24 02/27/24 02/28/24 16:09 20:35 07:19 POC Glucose 133 H 189 H 127 H 02/28/24 11:19 POC Glucose 87 OUTPATIENT ANTIDIABETIC REGIMEN: * Farxiga 5 mg daily * Trulicity 0.75 mg SQ weekly * Lantus 20 units HS * Metformin 500mg daily * A1c: 7% ASSESSMENT: * Patient s/p carotid endarterectomy. BSGs have been well controlled. Yesterday BSGs were [phone] and today fasting was 127 mg/dL and lunchtime was 87 mg/dL. * Will continue with regimen initiated yesterday but loosen novolog scale. PLAN FOR INPATIENT GLYCEMIC CONTROL: * Metformin continued on admission * Basal insulin * Lantus 10 or 15 units units SQ HS based on BSG- See MAR for details * Bolus insulin * NovoLog per scale ACHS or Q6hrs while NPO * Goal Range: Low 110 mg/dL - High 140 mg/dL * Correction Factor: 40 mg/dL/unit * Nutritional / Prandial insulin per carb ratio of 1 unit per 20 grams CHO consumed
--- NOTE | 2024-02-29 09:32 | Surgery Progress Note ---
Date of Service February 29, 2024 Assessment & Plan (1) S/P carotid endarterectomy: Plan: Patient doing well post redo left cea. She has had chronic problems with swallowing since her previous endarts. Eval by speech path yesterday, no aspiration. Recs in chart. Pt ok for d/c home today. Admission and Anticipated Discharge Date Admission Date: February 27, 2024 Subjective 68 yo f POD #2 after redo R CEA, seen in f/u today. Pt admits R neck pain and pain with swallowing. No other new complaints. Review of Systems Review of Systems: All systems reviewed & are unremarkable except as noted in HPI & below Physical Exam Constitutional: WD/WN, vitals as above Neck: trachea midline Respiratory: normal respiratory effort; no respiratory distress Cardiovascular: Rate/Rhythm: regular rate and regular rhythm Gastrointestinal (Abdomen): Inspection/Auscultation: abdomen normal to inspection Skin: + incision (dry and clean) Neurologic: CN's II-XI intact bilaterally and moves all extremities Psychiatric: Orientation: alert and oriented x 3 Results & Data Vital Signs (Past 12 Hours) Vital Signs Temp Pulse Resp BP Pulse Ox O2 Del Method 02/29/24 09:14 72 02/29/24 07:08 36.6 C 57 L 18 123/74 94 Room Air
--- NOTE | 2024-02-29 09:33 | Discharge Summary ---
Date of Service February 29, 2024 Admission HPI Per Admitting Provider Chief Complaint rm#6 here for f/u after CTA Subjective I had the pleasure of seeing Kaylee today in follow-up. As you know she is a 68-year-old female whose had a carotid endarterectomy on the left side in the past. She is also had a right carotid done years ago. She was seen in another hospital for right-handed weakness and double vision. Her MRI showed multiple lesions in both sides. CT scan was suggestive of a restenosis of the right internal carotid artery. She has no residual deficits at this point. She is here for her results of her CT angiogram. She has no complaints of cerebrovascular insufficiency. Objective Vitals & Measurements HR: 67 (Monitored) BP: 110/54 SpO2: 97% Physical Exam On exam she is awake alert and oriented x 3. She is in no apparent distress. Her blood pressure is 110/54. Her lungs are clear. Her heart has a RRR. Abdominal exam is benign. Her radials are +2 bilaterally. She does have soft carotid bruits. Femorals are +2 and pedal's are +2 bilaterally. Neurologic exam intact motor and sensory function. Diagnostic Results I reviewed her CT angiogram films which showed a severe greater than 90% narrowing of the right internal carotid artery and approximately a 60% restenosis of the left internal carotid artery just beyond the origin. Assessment/Plan 1. Carotid stenosis This point being that she is asymptomatic and does no intervention is needed for the left side. However the right side has a severe preocclusive lesion in need of intervention. She is not a TCAR candidate due to the fact that her distance from her clavicle to the beginning of her plaque is less than 5 cm. She therefore will require an endarterectomy. We went over the risks options and benefits and she is agreeable to go ahead with this procedure. The risks and options and benefits are documented in the consent form. Thank you very much for letting us participate in the care of this patient. Sincerely, Winsome Singh MD I have personally spent __35___ minutes performing ijdd-aa-vyhb and urc-rnep-ol-face activities on this date of service. Activities Include: _x_ review of the medical record _x_ obtaining a history _x_ physical exam/evaluation __ review labs __ review radiology reports _x_ counseling/educating patient/family/caregiver __ discussion/referral to other healthcare professional _x_ documenting care in the medical record _x_ independent interpretation of results cta done at [facility] __ communication of results to patient/family/caregiver __ coordination of care Signature Line Electronic Signature on File Wong Singh MD Author Signature Dt/Tm: 01/28/2024 02:15 PM Electrodynamicist [facility] [address] [place] [address] Electronically Reviewed/Signed by: Wong Singh MD Cosigner Signature Dt/Tm: 01/28/2024 02:16 PM Electrodynamicist [facility] [address] [place] [address] EJS Result Type: .Outpt Ltr Date of Service: January 28, 2024 14:12 EDT Authorization Status: Modified Subject: Follow Up Visit Author or Import Date: MD Singh Eugene J on January 28, 2024 14:15 EDT Verified By: MD Singh Eugene J on January 28, 2024 14:15 EDT Encounter info: [id number], [place] [address], Clinic, 01/28/2024 - 01/28/2024 Admission Exam Per Admitting Provider On exam she is awake alert and oriented x 3. She is in no apparent distress. Her blood pressure is 110/54. Her lungs are clear. Her heart has a RRR. Abdominal exam is benign. Her radials are +2 bilaterally. She does have soft carotid bruits. Femorals are +2 and pedal's are +2 bilaterally. Neurologic exam intact motor and sensory function. Principal Diagnosis 1. s/p Redo R CEA 2. R ICA restenosis Discharge Exam Constitutional WD/WN, vitals as above Neck trachea midline Respiratory normal respiratory effort; no respiratory distress Cardiovascular Rate/Rhythm: regular rate and regular rhythm Gastrointestinal (Abdomen) Inspection/Auscultation: abdomen normal to inspection Skin + incision (dry and clean) Neurologic CN's II-XI intact bilaterally and moves all extremities Psychiatric Orientation: alert and oriented x 3 Discharge Data Allergies Allergy/AdvReac Type Severity Reaction Status Date / Time adhesive tape Allergy Severe skin Verified 01/30/24 10:36 irritation No Known Drug Allergies Allergy Verified 01/30/24 10:36 Consultations 02/27/24 09:55 Consult Drawing In Machine Tender Helper Routine Procedures Performed Operation Date: 02/27/24 08:00 Actual Procedures p Right Carotid Endarterectomy(Right) - Wong Singh MD Hospital Course (1) S/P carotid endarterectomy: Patient doing well post redo left cea. She has had chronic problems with swallowing since her previous endarts. Eval by speech path yesterday, no aspiration. Recs in chart. Pt ok for d/c home today. Total Time Total Time Spent Total Time Spent (In Minutes): 0 Discharge Plan Discharge Items Patient Disposition: Home - Self-Care Reason For Visit: Right Carotid Artery Stenosis Discharge Diagnosis: 1. s/p R CEA redo 2. R ICA restenosis Condition on Discharge: Good Activity: Per Instructions section Non-emergency contact: Primary Care Provider and Surgeon Call non-emergency contact if: you have any medication questions, your pain is not controlled, your pain is concerning for you, you have a fever, your wound has increased redness, your wound has increased drainage and your wound pain has increased Follow-up/Referrals: Wong Singh MD [Physician] - (Follow up with Dr Singh or Charley Alston PA-C, in 2 weeks. ) Dina Benjamin DO [Primary Care Provider] - (Follow up with your PCP within 2 weeks) Diet: Carb Consistent or DM2 and Heart Healthy Addtl Attending Provider Instructions: SPECIAL CARE INSTRUCTIONS: Medications: * Continue to take Aspirin as directed. Incision Care: * You may shower, but do not rub incision. You may let the warm soapy water run over it. Be sure to dry the incision well after bathing. * Do not shave directly over the incision until it is healed. * DO NOT IMMERSE THE INCISION IN A TUB/POOL/etc. UNTIL HEALED. Restrictions: * Do not drive for at least one week or if you are still taking any narcotic pain medication. * Do not lift anything heavier than a gallon of milk for one week after going home. Possible Complications: * Numbness - It is normal to have some numbness around the incision. Numbness can extend beyond the incision to areas of the neck, ear and face. The numbness is due to bruising of nerves during the surgery and will gradually improve over a period of months. * Hoarseness/Difficulty Speaking and Swallowing - The bruising of nerves in the neck can also cause a hoarse voice, difficulty speaking or swallowing. This may improve over time, HOWEVER, if it continues for more than a few days please contact our office ([phone]). * Excessive Swelling - There will be some swelling immediately after surgery which usually resolves within one week. If you notice that the swelling is getting worse, notify your surgeon ([phone]). * Drainage/Bleeding - If there is any drainage or bleeding, it should be a very small amount (less than a teaspoon per day). If you have excessive bleeding or drainage from the incision, call your surgeon ([phone]) right away. ACTIVATION OF EMERGENCY MEDICAL SYSTEM: Call 911, immediately, if you experience any of the following: Warning Signs and Symptoms of Stroke: * Sudden numbness or weakness of the face, arm or leg, especially on one side of the body * Sudden confusion, trouble speaking or understanding * Sudden trouble seeing in one or both eyes * Sudden trouble walking, dizziness, loss of balance or coordination * Sudden severe headache with no cause Do not delay calling 911 if you experience any warning signs or symptoms of a stroke. Delay in seeking medical attention may affect what treatments can be given to you. Risk Factors for Stroke: You can reduce your chances of stroke by working with your medical provider to adopt a healthy lifestyle. Some specific ways to lower your chance of stroke are: * If you are a smoker, now is the time to stop smoking cigarettes * If you are diabetic, improve the control of your blood sugars * Avoid excessive amounts of alcohol * Control high blood pressure * Lose weight if you are overweight * Be sure to lead an active lifestyle * Eat a healthy diet low in salt, cholesterol and fat You should know about other risk factors for stroke that you are unable to control. These include: * Age 55 years or older * Male gender * Certain racial groups: , or / * Family History of Stroke, Mini stroke or Heart Attack * Sickle Cell Disease You will be receiving a call from the Vascular Surgery Nurse after you are discharged. FOLLOW UP VISIT: It is important for you to keep your follow up appointments with your medical provider. Keep any scheduled doctor appointments. Addtl Manufacturing Executive Provider Instructions: SPEECH PATHOLOGY INSTRUCTIONS: 1. Alternate solids and liquids 2. Remain fully alert and upright while eating 3. Take meds in applesauce or pudding 4. Take single, small bites, small sips, at slow rate. Pending Studies at Discharge: No Stand-Alone Forms: [facility], Smoking Cessation Medications and DC Order Prescriptions: New oxycodone-acetaminophen [Percocet] 5-325 mg Tablet 1 - 2 tab PO Q4H PRN (Reason: pain) Qty: 20 0RF Continued clopidogrel 75 mg tablet 75 mg PO QAM paroxetine HCl 10 mg tablet 10 mg PO QAM montelukast 10 mg tablet 10 mg PO QAM amlodipine 5 mg tablet 5 mg PO QAM pantoprazole 40 mg tablet,delayed release (DR/EC) 40 mg PO QAM lisinopril 2.5 mg tablet 2.5 mg PO QAM metoprolol succinate 100 mg tablet extended release 24 hr 100 mg PO QAM metformin 500 mg tablet extended release 24 hr 500 mg PO QAM calcium carbonate-vitamin D3 600 mg-10 mcg (400 unit) capsule 1 cap PO QAM insulin glargine [Basaglar KwikPen U-100 Insulin] 100 unit/mL (3 mL) insulin pen 20 unit subcut QPM nitroglycerin 0.4 mg tablet, sublingual 0.4 mg sublingual Q5M PRN (Reason: chest pain) aspirin 325 mg tablet 325 mg PO QAM dapagliflozin propanediol [Farxiga] 10 mg tablet 5 mg PO QAM furosemide 20 mg Tablet 20 mg PO QAM PRN (Reason: Edema) rosuvastatin 40 mg Tablet 40 mg PO QAM Trulicity 0.75 mg/0.5 mL Pen Injector 0.75 mg SUBCUT WK Patient Comments: Sundays (pt unsure of dose. entered lowest dose for now and pt will update day of PAT appt) albuterol sulfate 90 mcg/actuation Hfa Aerosol Inhaler 1 inh INHALATION QID PRN (Reason: sob) Discharge Orders: Discharge Order (Routine); Ordered 02/29/24 Ordered By: Charley Alston Admission Data Admit Date/Time: 02/27/24 09:55 Attending Provider: Wong Singh Admit Provider: Wong Singh Primary Care Provider: Dina Benjamin Other Providers: Zachary Gurrola; Nigel Carvalho; Geraldo Huynh; Hermelindo White; Leo Kim; Sakina Thorpe; Femi Lechuga; Zahida Moura; Coco Hernández; Jake Lane; Joe Gonzales; Kaylee Garcia
== END 2024-02-29 12:35 | disposition home health service (06) | DRG 27 ==
LOC: ASU 06:20 → 1E 09:55 → 3W 02-28 13:20
DX: Z79.82 Long term (current) use of aspirin; E78.5 Hyperlipidemia, unspecified; F32.9 Major depressive disorder, single episode, unspecified; I65.21 Occlusion and stenosis of right carotid artery; J44.9 Chronic obstructive pulmonary disease, unspecified; I25.10 Atherosclerotic heart disease of native coronary artery without angina pectoris; F41.9 Anxiety disorder, unspecified; Z79.84 Long term (current) use of oral hypoglycemic drugs; Z79.4 Long term (current) use of insulin; I10 Essential (primary) hypertension; Z79.85 Long-term (current) use of injectable non-insulin antidiabetic drugs; I25.2 Old myocardial infarction; Z86.73 Personal history of transient ischemic attack (TIA), and cerebral infarction without residual deficits; E11.65 Type 2 diabetes mellitus with hyperglycemia; Z95.5 Presence of coronary angioplasty implant and graft; F17.210 Nicotine dependence, cigarettes, uncomplicated; Z79.02 Long term (current) use of antithrombotics/antiplatelets; E11.51 Type 2 diabetes mellitus with diabetic peripheral angiopathy without gangrene

== ENCOUNTER 2024-07-15 07:00 | Observation (INO) ==
--- OUTSIDE RECORDS SUMMARY | 2024-07-15 07:06 | External Medical Summary | Continuity of Care Document ---
Author Name Unknown Organization [facility] Address [address] [place], [place] [id number] Care Team Providers Care General Milling Superintendent Name Role Phone Dina Benjamin Josafat Primary Care Physician [phone] [id number] Date[facility]/16/[facility] - 05/16/24 [facility] [address] [place] [address] [phone] Discharge Disposition: Home or Self Care Attending Physician: DO Miranda Michelle L Allergies, Adverse Reactions, Alerts Substance Criticality Severity Reaction Reaction Severity Status Adhesive bandage Skin irritation Active Medications albuterol CFC free 90 mcg/inh MDI Start: 03/27/22 3:34:00 PM EDT, 2 puff, inhaled, qid, PRN: as needed for wheezing Start Date: 03/27/22 Status: Ordered amLODIPine 5 mg oral tablet TAKE 1 TABLET BY MOUTH EVERY MORNING Start Date: 03/27/22 Status: Ordered aspirin 325 mg oral tablet take 1 tablet by mouth every morning with food Start Date: 12/24/23 Status: Ordered Basaglar KwikPen 100 units/mL subcutaneous solution 20 unit =, subQ, qhs Start Date: 03/27/22 Status: Ordered CALCIUM 600-VIT D3 400 TABLET TAKE 1 TABLET BY MOUTH EVERY DAY Start Date: 03/27/22 Status: Ordered calcium-vitamin D 500 mg-5 mcg (200 intl units) oral tablet Start: 03/27/22 3:33:00 PM EDT, 1 tab, PO, Daily Start Date: 03/27/22 Status: Ordered clopidogrel 75 mg oral tablet TAKE 1 TABLET BY MOUTH EVERY DAY Start Date: 03/27/22 Status: Ordered furosemide 20 mg oral tablet Start: 03/27/22 3:34:00 PM EDT, 1 tab, PO, Daily, as needed edema/wt gain Start Date: 03/27/22 Status: Ordered lisinopril 2.5 mg oral tablet TAKE 1 TABLET BY MOUTH EVERY DAY Start Date: 03/27/22 Status: Ordered MetFORMIN (Eqv-Glucophage XR) 500 mg oral tablet, extended release TAKE 1 TABLET BY MOUTH EVERY DAY Start Date: 03/27/22 Status: Ordered Metoprolol Succinate ER 100 mg oral tablet, extended release TAKE 1 TABLET BY MOUTH EVERY DAY Start Date: 03/27/22 Status: Ordered montelukast 10 mg oral tablet TAKE 1 TABLET BY MOUTH EVERYDAY AT BEDTIME Start Date: 03/27/22 Status: Ordered nitroglycerin 0.4 mg sublingual tablet Start: 05/16/24 3:42:00 PM EDT, 1 tab, SL, q5min, Disp# 25 tab, Refills: 1, PRN: as needed for chestpain, Pharmacy: [facility] #[id number] Start Date: 05/16/24 Status: Ordered pantoprazole 40 mg oral delayed release tablet TAKE 1 TABLET BY MOUTH EVERY DAY Start Date: 03/27/22 Status: Ordered PARoxetine 10 mg oral tablet TAKE 1 TABLET BY MOUTH EVERY MORNING Start Date: 03/27/22 Status: Ordered rosuvastatin 20 mg oral tablet TAKE 1 TABLET BY MOUTH EVERYDAY AT BEDTIME Start Date: 03/27/22 Status: Ordered Trulicity Pen 0.75 mg/0.5 mL subcutaneous solution inject 0.5 milliliters ( 0.75 milligrams ) subcutaneously every w... (REFER TO PRESCRIPTION NOTES). Start Date: 12/24/23 Status: Ordered Problem List Condition Confirmation Course Effective Dates Status H ealth Status Informant Carotid stenosis Confirmed Active S/P carotid endarterectomy Confirmed Active Aortoiliac occlusive disease Confirmed Active Tobacco user Confirmed Active Procedures Procedure Date Related Diagnosis Body Site Status Redo right CEA 02/27/24 Completed Left CEA - Carotid endarterectomy 08/07/22 Completed Social History Social History Type Response Smoking Status Current every day consuelo t smoker Sex Female Patient Care team information Care Team Personnel Name: LEANNE Alston Lynn Position: Physician Slot Tag Inserter Exempt - Vasc Surg Member Role: Lifetime Relationship Address: Address: [address] [place] [id number] Name: DO Benjamin Jessie L Position: Referring Member Role: Primary Care Provider Address: Address: [address] [address] [place]
--- OUTSIDE RECORDS SUMMARY | 2024-07-15 07:06 | External Medical Summary | Continuity of Care Document ---
Author Name Unknown Organization [facility] Address [address] [place], [place] [id number] Care Team Providers Care Net Lead Architect Name Role Phone Benjamin, Dina L Primary Care Physician [phone] Encounter [facility] [id number] Date(s): 06/04/24 - 06/04/24 [facility] [address], [address] [place] [address] [phone] Encounter Diagnosis Body mass index [BMI] 24.0-24.9, adult(Discharge Diagnosis) - 06/04/24 Discharge Disposition: Home or Self Care Attending [...] 1, PRN: as needed for chestpain, [facility]acy: [facility] #[id number] Start Date: 05/16/24 Status: Ordered pantoprazole 40 [...] Condition Confirmation Course Effective Dates Status H ealt Status Informant Carotid stenosis Confirmed Active CAD in [place] artery Confirmed Active S/P carotid endarterectomy Confirmed Active HTN (hypertension) Confirmed Active Aortoiliac occlusive disease Confirmed Active PAD (peripheral artery disease) Confirmed Active Smoker Confirmed Active Tobacco user Confirmed Active Diagnosis Diagnosis Type Effective Dates Health Status Cl inical Service Informant Body mass index [BMI] 24.0-24.9, adult Discharge Diagnosis 06/04/24 Non-Specified Procedures Procedure Date Related Diagnosis Body Site Status Redo right CEA 02/27/24 Completed Left CEA - Carotid endarterectomy 08/07/22 Completed Vital Signs Most recent to oldest [Reference Range]: 1 Height 165.1 cm (06/04/24 3:28 PM) Patient Weight 65.6 kg (06/04/24 3:28 PM) Body Mass Index 24.07 kg/m2 (06/04/24 3:28 PM) Social History Social History Type Response Smoking Status Current every day li ght smoker Sex Female Sex Representation Female (finding) Patient Care team information Care Team Personnel Name: LEANNE Alston Lynn Position: Physician Equipment Maintenance Technician Exempt - Vasc Surg Member Role: Lifetime Relationship Address: [address] [place] [id number] Name: DO Benjamin Jessie L Position: Referring Member Role: Primary Care Provider Address: [address] [address]
--- OUTSIDE RECORDS SUMMARY | 2024-07-15 07:06 | External Medical Summary | Continuity of Care Document ---
Author Name Unknown Organization [facility] Address [address] [place], [place] [id number] Care Team Providers Care Signal Apprentice Name Role Phone Dina Benjamin Primary Care Physician [phone] [id number] Date(s): 04/08/24 - 04/08/24 [facility] [address] [place] [address] [phone] Discharge Disposition: Home or Self Care Attending Physician: LEANNE Alston Lynn Referring Physician: LEANNE Alston Lynn Allergies, Adverse Reactions, Alerts Substance Criticality Severity [...] 03/27/22 3:33:00 PM EDT, 1 tab, PO, bid Start Date: 03/27/22 Status: Ordered clopidogrel 75 mg oral tablet TAKE 1 TABLET BY MOUTH EVERY DAY Start Date: 03/27/22 Status: Ordered Farxiga 10 mg oral tablet Start: 12/24/23 3:44:00 PM EST Start Date: 12/24/23 Status: Ordered furosemide 20 mg oral tablet Start: 03/27/22 3:34:00 PM EDT, 1 tab, PO, Daily, edema/wt gain Start Date: 03/27/22 Status: Ordered [...] Ordered nitroglycerin 0.4 mg sublingual tablet Start: 03/27/22 3:30:00 PM EDT, 1 tab, SL, q5min, Disp# 25 tab, PRN: as needed for chest pain Start Date: 03/27/22 Status: Ordered pantoprazole 40 mg oral delayed [...] Left CEA - Carotid endarterectomy 08/07/22 Completed Results Radiology Reports * Exam Date Time Procedure Performing Provider Status 04/08/24 10:16 AM VL Aortoiliac Duplex Complete ; Final Notes: (VL Aortoiliac Duplex Complete) Reason For Exam: aiod VL Aortoiliac Duplex Complete [facility] FINAL REPORT Name: YVONNE FLORES : 1955 Visit: [id number] Date: 08 Apr 2024 TYPE OF TEST: Aorto-Iliac Duplex REASON FOR TEST Left MIGUE stent INTERPRETATION/FINDINGS Arterial duplex imaging performed of the abdominal aorta and bilateral iliac arteries: 1. The abdominal aorta and bilateral iliac arteries are within normal limits; no aneurysm identified. 2. Patent stented left common iliac artery without restenosis. 3. The right common iliac and bilateral external iliac and common femoral arteries are patent without hemodynamically significant stenosis. 4. >50% stenosis of the proximal right internal iliac artery. Compared to the previous study performed 05/10/2022, there is no significant change. IMPRESSION/COMMENTS I have personally reviewed the data relevant to the interpretation of this study. TECHNOLOGIST: Aditi Mayfield RDCS, RVT PHYSICIAN: Wong Singh M.D. Signed: 04/08/2024 12:16 PM Final Dictated by:MD Singh Eugene J Dictated DT/TM:04/08/2024 12:16 Signed by:MD Singh Eugene J Signed (Electronic Signature):04/08/2024 12:16 Transcribed by:RONNY Social History Social History Type Response Smoking Status Never smoked cigaret angie Sex Female Patient Care team information Care Team Personnel Name: LEANNE Alston Lynn Position: Physician Underwear Hemmer Exempt - Vasc Surg Member Role: Lifetime Relationship Address: Address: [address] [place] [id number] Name: DO Benjamin Jessie L Position: Referring Member Role: Primary Care Provider Address: Address: [address] [address] [place]
--- OUTSIDE RECORDS SUMMARY | 2024-07-15 07:06 | External Medical Summary | Continuity of Care Document ---
Author Name Unknown Organization [facility] Address [address] [place], [place] [id number] Care Team Providers Care Mutuel Teller Name Role Phone Dina Benjamin Primary Care Physician [phone] [id number] Date(s): 05/16/24 - 05/16/24 [facility] [address], [address] [place] [address] [phone] Encounter Diagnosis HTN (hypertension)(Discharge Diagnosis) - 05/16/24 Syncope(Discharge Diagnosis) - 05/16/24 CAD in [place] artery(Discharge Diagnosis) - 05/16/24 PAD (peripheral artery disease)(Discharge Diagnosis) - 05/16/24 Tachycardia(Discharge Diagnosis) - 05/16/24 Abnormal ECG(Discharge Diagnosis) - 05/16/24 Discharge Disposition: Home or Self Care Attending [...] as needed for chestpain, [facility]acy: [facility] #[id number] Start Date: 05/16/24 Status: Ordered pantoprazole 40 [...] PRESCRIPTION NOTES). Start Date: 12/24/23 Status: Ordered Mental Status 05/16/24 Barriers to Learning one year None evide nt Mandatory Health Literacy Documentation Yes Health Literacy Communication Barriers N ever Primary Language Malian Problem List Condition Confirmation Course Effective Dates Status H ealth Status Informant Carotid stenosis Confirmed Active S/P carotid endarterectomy Confirmed Active Aortoiliac occlusive disease Confirmed Active Tobacco user Confirmed Active Diagnosis Diagnosis Type Effective Dates Health Status Clinical Service Informant HTN (hypertension) Discharge Diagnosis 05/16/24 Non-Specified Syncope Discharge Diagnosis 05/16/24 Non-Specified Tachycardia Discharge Diagnosis 05/16/24 Non-Specified Abnormal ECG Discharge Diagnosis 05/16/24 Non-Specified CAD in [place] artery Discharge Diagnosis 05/16/24 Non-Specified PAD (peripheral artery disease) Discharge Diagnosis 05/16/24 Non-Specified Procedures Procedure Date Related Diagnosis Body Site Status Redo right CEA 02/27/24 Completed Left CEA - Carotid endarterectomy 08/07/22 Completed Vital Signs Most recent to oldest [Reference Range]: 1 Heart Rate 66 bpm (05/16/24 2:53 PM) Respiratory Rate 18 br/min (05/16/24 2:53 PM) Blood Pressure 122/58mmHg (05/16/24 2:53 PM) Cuff Pulse Pressure 64 mmHg (05/16/24 2:53 PM) Social History Social History Type Response Smoking Status Current every day li ght smoker Sex Female Patient Care team information Care Team Personnel Name: LEANNE Alston Lynn Position: Physician Internet Assessor Exempt - Vasc Surg Member Role: Lifetime Relationship Address: Address: [address] [place] [phone] Name: DO Benjamin Jessie L Position: Referring Member Role: Primary Care Provider Address: Address: [address] [address]
--- OUTSIDE RECORDS SUMMARY | 2024-07-15 07:06 | External Medical Summary | Continuity of Care Document ---
Author Name Unknown Organization [facility] [address] [facility] Address [address] [place], [place] [id number] Care Team Providers Care Truck Car And Bus Cleaner Name Role Phone Dina Benjamin Josafat Primary Care Physician [phone] [id number] Date(s): 07/01/24 - 07/01/24 [facility] [address], [address] [place] [address] [phone] Discharge Disposition: Home or Self Care Attending [...] PRN: as needed for chestpain, Pharmacy: [id number] Start Date: 05/16/24 Status: Ordered pantoprazole 40 [...] ealth Status Informant Carotid stenosis Confirmed Active CAD in [place] artery Confirmed Active S/P carotid endarterectomy Confirmed Active HTN (hypertension) Confirmed Active Aortoiliac occlusive disease Confirmed Active PAD (peripheral artery disease) Confirmed Active Smoker Confirmed Active Tobacco user Confirmed Active Procedures Procedure Date Related Diagnosis Body Site Status Redo right CEA 02/27/24 Completed Left CEA - Carotid endarterectomy 08/07/22 Completed Results Radiology Reports * Exam Date Time Procedure Performing Provider Status 07/01/24 4:15 PM Echo TransTHORacic TTE Complete w/ Con Janay Carreno; Final Notes: (Echo TransTHORacic TTE Complete w/ Cont) Reason For Exam: syncope Echo TransTHORacic TTE Complete w/ Cont Report Signatures Finalized by Dr. Isa Miranda DO on 07/02/2024 06:43 PM [place] Act 112: No-No further action needed Summary 1. Technically difficult study; Successfully enhanced with Definity contrast per lab protocol for better endocardial definition. 2. Normal left ventricular size. Hyperdynamic LV systolic function with no regional wall motion abnormalities. 3. Ejection fraction as calculated by Biplane Simpsons method is >75%. 4. Grade I diastolic dysfunction of the left ventricle (impaired relaxation pattern). 5. Mildly dilated left atrium size. 6. No left ventricular hypertrophy. 7. Normal right ventricular size and function. 8. No significant valvular abnormalities. 9. Normal estimated pulmonary artery systolic pressure. 10. No prior studies for comparison. 11. Pericardium is very echogenic. Patient Info Name: YVONNE FLORES Age: 68 years : 1955 Gender: Female Ht: 165 cm Wt: 64 kg BSA: 1.71 m2 HR: 67 bpm BP: 112 / 60 mmHg Heart Rhythm: Sinus Rhythm Technical Quality: Technically difficult study Exam Date: 07/01/2024 3:11 PM Exam Location: [facility] Patient Status: Outpatient Staff Ordering Physician: Isa Miranda Senior C Web Developer: Janay Raymond RDCS, RVT Attending Physician: Isa Miranda Study Info [facility] [id number] - [id number] - Indications R55 - Syncope and collapse Procedure(s) * A complete two-dimensional, color flow and Doppler transthoracic echocardiogram was performed. * Failed 2D images were enhanced with Definity per lab protocol. * Senior C Web Developer, Janay Raymond RDCS, RVT, provided education about ultrasound enhancing agent to the patient. Exam Type: Cardiac Basic Left Ventricle Normal left ventricular size. Hyperdynamic LV systolic function with no regional wall motion abnormalities. Ejection fraction as calculated by Biplane Simpsons method is >75%. No left ventricular hypertrophy. Grade I diastolic dysfunction of the left ventricle (impaired relaxation pattern). Right Ventricle Normal right ventricular size and function. TAPSE is normal, 2.1 cm. Left Atrium Mildly dilated left atrium size. Right Atrium Normal right atrial size. Atrial Septum Appears intact. Aortic Valve Tricuspid aortic valve without stenosis or insufficiency. Pulmonic Valve Unremarkable pulmonic valve. Trace pulmonary regurgitation. Mitral Valve Unremarkable mitral valve. Trace mitral valve regurgitation. Tricuspid Valve Unremarkable tricuspid valve. Trace to mild tricuspid valve regurgitation. Normal estimated pulmonary artery pressures, estimated PASP is 26 mmHg. Pericardium/Pleural No pericardial effusion. Pericardium is very echogenic. Inferior Vena Cava Normal IVC size and inspiratory collapse. Estimated right atrial pressure is 3 mmHg. Aorta Normal aortic root. Calcified aortic arch. Left Ventricular Outflow Tract Name Value Normal LVOT 2D LVOT Diameter 1.8 cm LVOT Doppler LVOT Peak Velocity 1.21 m/s LVOT Peak Gradient 6 mmHg LVOT Mean Gradient 3 mmHg LVOT VTI 27.52 cm LVOT Stroke Volume 70.58 ml LVOT Stroke Volume Index 0.04 l/m2 LVOT Cardiac Output 4.73 l/min LVOT Cardiac Index 2.76 L/min/m2 Pulmonic Valve Name Value Normal PV 2D RVOT Diameter (2D) 1.8 cm 1.7-2.7 RVOT Doppler RVOT Peak Velocity 0.75 m/s PV Doppler PV Peak Velocity 0.78 m/s Mitral Valve Name Value Normal MV Doppler MV PHT 55 ms MV Diastolic Function MV E Peak Velocity 0.61 m/s <=0.50 MV A Peak Velocity 0.74 m/s MV E/A 0.83 <=0.80 MV Decel Time 190 ms MV Annular TDI MV Septal s' Velocity 6.00 cm/s MV Septal e' Velocity 5.51 cm/s >=7.00 MV E/e' (Septal) 11.1 <=8.0 MV Lateral s' Velocity 7.18 cm/s MV Lateral e' Velocity 10.30 cm/s >=10.00 MV E/e' (Lateral) 5.96 <=8.00 MV e' Average 7.91 MV E/e' (Average) 8.55 <=14.00 Tricuspid Valve Name Value Normal TV Regurgitation Doppler TR Peak Velocity 2.42 m/s <=2.80 TR Peak Gradient 20 mmHg Estimated PAP/RSVP RA Pressure 3 mmHg <=5 PA Systolic Pressure 26 mmHg <40 TV Diastolic Function TV E Peak Velocity 0.30 m/s TV A Peak Velocity 0.37 m/s TV E/A 0.80 0.80-2.00 TV Decel Time 491 ms >=120 TV Annular TDI TV Lateral Ora s' Velocity 13.8 cm/s 9.5-18.7 TV Lateral Ora e' Velocity 7.8 cm/s <7.8 TV E/e' 3.83 2.00-6.00 Aorta Name Value Normal Ascending Aorta Sinus of Valsalva Diameter 2.8 cm 2.7-3.3 Sinus of Valsalva Index 1.61 cm/m2 1.60-2.00 Thoracic Aorta Ao Arch Diameter 2.8 cm Desc Ao Peak Velocity 0.89 m/s Desc Ao Peak Gradient 3 mmHg Venous Name Value Normal IVC/SVC IVC Diameter (Insp 2D) 0.4 cm IVC Diameter (Exp 2D) 0.9 cm <=2.1 IVC Diameter Percent Change (2D) 59 % >=50 Aortic Valve Name Value Normal AV Doppler AV Peak Velocity 1.12 m/s <2.00 AV Peak Gradient 5 mmHg AV Area (Cont Eq Giorgi) 2.8 cm2 AV Area Index (Cont Eq Giorgi) 1.61 cm2/m2 AV V1/V2 Ratio 1.07 AV Regurgitation 2D LVOT Area 2.6 cm2 Ventricles Name Value Normal LV Dimensions 2D/MM IVS Diastolic Thickness (2D) 0.9 cm 0.6-0.9 LVID Diastole (2D) 4.0 cm 3.3-5.1 LVIW Diastolic Thickness (2D) 0.8 cm 0.6-0.9 LVID Systole (2D) 2.4 cm 2.2-3.5 LVOT Diameter 1.8 cm LV Mass (2D Cubed) 110.72 g 67.00-162.00 LV Mass Index (2D Cubed) 0.01 g/cm2 0.00-0.01 Relative Wall Thickness (2D) 0.42 LV Fractional Shortening/Ejection Fraction 2D/MM LV Fractional Shortening (2D) 40 % 27-45 LV Diastolic Volume (4C MOD) 74 ml LV Diastolic Volume (2C MOD) 64 ml LV Diastolic Volume (BP MOD) 69 ml 46-106 LV Diastolic Volume Index (BP MOD) 40.15 ml/m2 29.00-61.00 LV Systolic Volume (BP MOD) 14 ml 14-42 LV Systolic Volume Index (BP MOD) 8.20 ml/m2 8.00-24.00 LV EF (BP MOD) 80 % 58-69 LV SV (BP MOD) 54.71 ml LV End Diastolic Volume (BP A-L) 72.45 ml LV End Systolic Volume (BP A-L) 13.69 ml LV EF (BP A-L) 81 % RV Dimensions 2D/MM RV Basal Diastolic Dimension 2.6 cm 2.5-4.1 TAPSE 2.1 cm >=1.7 Atria Name Value Normal LA Dimensions LA Area (4C) 17.3 cm2 LA Length (4C) 5.3 cm LA Area (2C) 19.9 cm2 LA Length (2C) 5.5 cm LA Volume (4C A-L) 47.84 ml LA Volume (2C A-L) 60.69 ml LA Volume (BP A-L) 55 ml 22-52 LA Volume Index (BP A-L) 32.06 ml/m2 <=34.00 RA Dimensions RA Area (4C) 12.1 cm2 <=18.0 Final Signed by:DO Miranda Michelle L Signed (Electronic Signature):07/01/2024 3:11 p Social History Social History Type Response Smoking Status Current every day li ght smoker Sex Female Sex Representation Female (finding) Patient Care team information Care Team Personnel Name: LEANNE Alston Lynn Position: Physician Education Reviewer Exempt - Vasc Surg Member Role: Lifetime Relationship Address: [address] [place] [id number] Name: DO Benjamin Jessie L Position: Referring Member Role: Primary Care Provider Address: [address]
--- OUTSIDE RECORDS SUMMARY | 2024-07-15 07:06 | External Medical Summary | Continuity of Care Document ---
Author Name Unknown Organization [place] [address] [facility] Address [address] [place], [place] [id number] Care Team Providers Care Globe Tester Name Role Phone Dina Benjamin Josafat Primary Care Physician [phone] [id number] Date(s): 06/04/24 - 06/04/24 [place] [address], [address] [place] [phone] Discharge Disposition: Home or Self Care Attending Physician: DO Cisneros Jason D Referring Physician: DO Cisneros Jason D Allergies, Adverse Reactions, Alerts Substance Criticality Severity [...] 1, PRN: as needed for chestpain, Pharmacy: [facility] #[id number] Start Date: 05/16/24 Status: Ordered pantoprazole 40 [...] Informant Carotid stenosis Confirmed Active CAD in [place] artery Confirmed Active S/P carotid endarterectomy Confirmed [...] Personnel Name: LEANNE Alston Lynn Position: Physician Pace Analyst Exempt - Vasc Surg Member Role: Lifetime Relationship Address: [address] [place] [address] [address] [place] [address] Name: DO Benjamin Jessie L Position: Referring Member Role: Primary Care Provider Address: [address] [place] [address]
--- OUTSIDE RECORDS SUMMARY | 2024-07-15 07:06 | External Medical Summary | Continuity of Care Document ---
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 Name Role Phone Jose Benjaminsserendira Maurice Primary Care Physician [phone] Encounter [facility] [id number] Date(s): 07/04/24 - 07/04/24 [facility] [address], [address] [place] [address] [phone] Encounter Diagnosis Syncope(Discharge Diagnosis) - 07/04/24 Chest pain(Discharge Diagnosis) - 07/04/24 CAD in [place] artery(Discharge Diagnosis) - 07/04/24 Old inferior wall myocardial infarction(Discharge Diagnosis) - 07/04/24 PAD (peripheral artery disease)(Discharge Diagnosis) - 07/04/24 Carotid artery disease(Discharge Diagnosis) - 07/04/24 Syncope and collapse(Final) - Chest pain, unspecified(Final) - Atherosclerotic heart disease of [place] coronary artery without angina pectoris (Final) - Old myocardial infarction(Final) - Peripheral vascular disease, unspecified(Final) - Disorder of arteries and arterioles, unspecified(Final) - Discharge Disposition: Home or Self Care Attending Physician: DO Miranda Michelle L Allergies, Adverse Reactions, Alerts Substance Criticality Severity Reaction Reaction Severity Status Adhesive bandage Skin irritation Active Assessment and Plan Extracted from: Title:Cardiology Office Visit Note Author:DO Miranda Michelle L Date:07/04/24 1.Syncope Sounds suspicious forcardiac syncope. Recommend left heart catheterization to define her coronary anatomy given her multiplevascular issues as well as symptoms. 2.Chest pain Will continue her current medications for now including aspirinand Plavix. Depending on the results of her Further recrecommendations will follow. She will continue statin as well as her beta-tejal. She has sublingual nitroglycerin to use as needed. In the event that her symptoms worsen she should present to the [facility] emergency room for more urgent treatment. 3.CAD in [place] artery All of her prior caths were at [facility] well as [facility] She has had multipleLAD stents Mendez think one of them was in the RCA but I do not have her old cath reports to confirm all of this 4.Old inferior wall myocardial infarction We think this was around 2004. 5.PAD (peripheral artery disease) History ofleft femoral stentapproximately 2024 6.Carotid artery disease Left carotid endarterectomy 2021 right carotid [id number] Will schedule her catheterization in the very near future. Thank you for allowing me to participate in her care. I look forward to participating in her care with you. Medications albuterol CFC free 90 mcg/inh MDI [...] subQ, qhs Start Date: 03/27/22 Status: Ordered calcium-vitamin D [...] as needed for chestpain, [facility]: [id number] Start Date: 05/16/24 Status: Ordered pantoprazole 40 [...] Start Date: 12/24/23 Status: Ordered Mental Status 07/04/24 Barriers to Learning one year None evide nt Mandatory Health Literacy Documentation Yes Health Literacy Communication Barriers N ever Primary Language Somali Problem List Condition Confirmation Course Effective Dates Status H ealt Status Informant Carotid stenosis Confirmed Active CAD in [place] artery Confirmed Active S/P carotid endarterectomy Confirmed Active HTN (hypertension) Confirmed Active Aortoiliac occlusive disease Confirmed Active PAD (peripheral artery disease) Confirmed Active Smoker Confirmed Active Tobacco user Confirmed Active Diagnosis Diagnosis Type Effective Dates Health Status Clinical Service Informant PAD (peripheral artery disease) Discharge Diagnosis 07/04/24 Non-Specified Carotid artery disease Discharge Diagnosis 07/04/24 Non-Specified Syncope Discharge Diagnosis 07/04/24 Non-Specified Chest pain Discharge Diagnosis 07/04/24 Non-Specified CAD in [place] artery Discharge Diagnosis 07/04/24 Non-Specified Old inferior wall myocardial infarction Discharge Diagnosis 07/04/24 Non-Specified Procedures Procedure Date Related Diagnosis Body Site Status Redo right CEA 02/27/24 Completed Left CEA - Carotid endarterectomy 08/07/22 Completed Results Laboratory List Name Date Partial Thromboplastin Time (PTT) 4 Basic Metabolic Panel (BASIC METAB PANEL ) 07/04/24 Complete Blood Count w Differential (CBC ,DIFFH) 07/04/24 Lipid Profile (LIPOPROTEINS) 07/04/24 Liver Profile (LIVER PROFILE) 07/04/24 Prothrombin Time w/ INR (PROTIME WITH IN R) 07/04/24 Most recent to oldest [Reference Range]: 1 eGFR CKD-EPI [>60 mL/min/1.73 m2] >90 mL /min/1.73 m2 1 (07/04/24 12:17 PM) Non-HDL 86 mg/dL 2 (07/04/24 12: PM) Estimated CrCl 77.81 mL/min (07/04/24 1:03 PM) MPV [9.0-12.2 fL] 10.9 fL (07/04/24 12:17 PM) Immature Gran% 0.6 % (07/04/24:17 PM) Neut% 59.7 % (07/04/24 12:17 PM) Lymph% 31.6 % (07/04/24 12:17 PM) Lea% 6.3 % (07/04/24 12:17 PM) Baso% 0.6 % (07/04/24 12:17 PM) Eos% 1.2 % (07/04/24 12:17 PM) Immat Gran, Abs [0-0.4 K/uL] 0.07 K/uL (07/04/24 12:17 PM) Neut, Abs [2.0-7.7 K/uL] 6.48 K/uL (07/04/24 12:17 PM) Lymph, Abs [1.0-3.4 K/uL] 3.44 K/uL *HI* (07/04/24 12:17 PM) Lea, Abs [0-1.0 K/uL] 0.69 K/uL (07/04/24 12:17 PM) Baso, Abs [0-0.1 K/uL] 0.06 K/uL (07/04/24 12:17 PM) Eos, Abs [0-0.5 K/uL] 0.13 K/uL (07/04/24 12:17 PM) Type of Diff: AUTO *Unknown* (07/04/24 12: PM) RDW [11.5-14.2 %] 13.7 % (07/04/24 12:17 PM) Anion Gap [5-14 mmol/L] 11 mmol/L (07/04/24 PM) Alk Phos [38-126 unit/L] 123 unit/L (07/04/24 PM) ALT [<35 unit/L] 28 unit/L 3 (07/04/24 PM) BUN [7-20 mg/dL] 8 mg/dL (07/04/24 PM) Ca [8.4-10.2 mg/dL] 10.0 mg/dL (07/04/24 PM) Chol/HDL 3 (07/04/24 PM) Chol [125-200 mg/dL] 130 mg/dL (07/04/24 PM) Cl- [96-107 mmol/L] 102 mmol/L (07/04/24 PM) HCO3 [22-30 mmol/L] 27 mmol/L (07/04/24 PM) Cret [0.60-1.00 mg/dL] 0.64 mg/dL (07/04/24 PM) Glu [74-106 mg/dL] 118 mg/dL *HI* (07/04/24 PM) Hct [35-44 %] 52.4 % *HI* (07/04/24 PM) HDL [>35 mg/dL] 44 mg/dL (07/04/24 PM) Hgb [11.7-15.0 g/dL] 16.8 g/dL *HI* (07/04/24 PM) INR [0.9-1.1] 1.0 4 (07/04/24 PM) K [3.5-5.1 mmol/L] 4.4 mmol/L (07/04/24 PM) LDL Chol, Calculated [50-130 mg/dL] 49 m g/dL *LOW* (07/04/24 PM) MCH [28-33 pg] 29.0 pg (07/04/24 PM) MCHC [32-36 g/dL] 32.1 g/dL (07/04/24 PM) MCV [81-96 fL] 90.5 fL (07/04/24 12:17 PM) Na [137-145 mmol/L] 140 mmol/L (07/04/24 12:17 PM) Plts [150-350 K/uL] 228 K/uL (07/04/24 12:17 PM) PT [12.0-14.2 seconds] 13.4 seconds (07/04/24 12:17 PM) PTT [23-35 seconds] 32 seconds (07/04/24 12:19 PM) RBC [3.90-5.00 M/uL] 5.79 M/uL *HI* (07/04/24 12:17 PM) T Bili [0.2-1.3 mg/dL] 1.1 mg/dL (07/04/24 12:17 PM) TG [<200 mg/dL] 184 mg/dL (07/04/24 12:17 PM) WBC [4.0-10.4 K/uL] 10.87 K/uL *HI* (07/04/24 12:17 PM) 1Result Comment: Testing Performed By: Dept of Pathology [facility] Jarrod Bermudez, [address] [place] [address], [place] [address] 2Result Comment: Testing Performed By: [facility], [address] [place] [address], [place] [address] 3Result Comment: Testing Performed By: [facility], [address] [place] [address], [place] [address] 4Result Comment: Suggested therapeutic range for low-intensity Coumadin therapy for venous thromboembolism is INR 2.0-3.0 (ex: atrial fibrillation, history of TIA/stroke). For high risk patients, the suggested therapeutic range is INR 2.5-3.5 (ex: mechanical prosthetic valves). Testing Performed By: Dept of Pathology [facility] [place], [address] [facility] [place] [address] Vital Signs Most recent to oldest [Reference Range]: 1 Patient Weight 64.6 kg (07/04/24 10:54 AM) Heart Rate 61 bpm (07/04/24 10:54 AM) Respiratory Rate 18 br/min (07/04/24 10:54 AM) Blood Pressure 122/64mmHg (07/04/24 10:54 AM) Cuff Pulse Pressure 58 mmHg (07/04/24 10:54 AM) Social History Social History Type Response Smoking Status Current every day li ght smoker Sex Female Sex Representation Female (finding) Cardiology Outpatient Note * DO Miranda Michelle L: PERFORM Event Display: Cardiology Outpt Note Authored Date: [id number] Primary Care Provider DO Benjamin Jessie L Chief Complaint here for f/u s/p testing. no er visits. History of Present Illness Yvonne was seen today in follow-up after her recent dobutamine stress echo. That result was reviewed with her and she did have EKG changeswith the stress testincluding an incomplete right bundlebranch block on the stress test which was not previously notedbut she also hadthe lateral precordial leads developedat least 1 to 1-1/[address] depression with dobutamine stress. Unfortunately she failed tomention during the test that she did have chest tightness in the middleof it. This was documented in the report however that she did not have symptoms. She tells me that she in fact did have chest painwith the test. In addition the echo portion of the test showswhat I think is probably inferior scarfroma priorMIwhich we think [id number]. I reviewed her prior catheterizations andas far she recalls she has had3 heart caths. The last [facility] at [facility] [id number] treated withex XienceLAD stenting. In 2004she underwentLAD stenting x 2 with Taxus stents. The third procedure was with Cypherdrug-eluting stentsand I suspected this may have been RCAbut I do not have that old cath reportto compareconfirm that. Given the equivocal dobutamine echo results the positive EKG changes and the symptoms withthis stress test as well as her ongoing chest pain andher presentation with ahistory of syncopeI am recommending that she undergo a left heart catheterization to redefine hercoronary anatomy. She is in agreement and [facility] She will stay on aspirin as well as beta-blockerand statin. In the event that her symptoms worsen prior to the catheterization she should present to the emergency room. In summary of her prior history:Denisha a68 yearoldFormerly [facility] Hospitalfartungretta is here forcardiac evaluation and follow-up.She is [id number] woman [facility] former[facility].She has a history ofbilateral carotid diseaseand underwent her firstleft carotid endarterectomy back in 2021 by .She just recentlyunderwent the rightcarotid endarterectomythis past winterwith Dr. Singh as well. She also has a hi story of leftfemoralocclusionand underwentPTAshe thinks [facility]. She had total occlusion of the left femoral and she recalls they had to go in through the right sideand up and around to get to the blockage. Her recent history includes and earlymorning she was seated in a chair at about 530 [facility] lost consciousnessfell to the ground hitting both of her elbows shefelt funny in her chestwith her heart racing and decided to take a sublingual nitroglycerin.She did not seek medical attention but just waited about 30 minutes and her symptomsfelt better.He denies having a prior episodelike this 1.Her laststress test was in May 2022which wasa nuclear stress test and that was unremarkable.Her last echowas also back in 2021. She unfortunately continues to smoke even despiteherrecent repeat carotid endarterectomy.Wediscussed smoking cessation and she is thinking about it but she is not ready to quit yet. Her EKG shows normal sinus rhythmversus an ectopic atrial rhythm due to the very short CA intervalleftatrial abnormalitythere areanterolateralT wave inversions.Her CA interval is short Review of Systems General: no fevers, chills, weight loss of gain HEENT: no changes in vision or hearing; no recent falls or head trauma Cardiac: No other symptoms other than reported in HPI Pulmonary: No symptoms other than reported in HPI Abdomen: No changes in bowel habits, nausea, vomiting, no BRBPR : no changes in urine frequency Extremities: no edema or claudication Physical Exam Vitals & Measurements HR:61(Monitored) RR:18 BP:122/64 SpO2:99% WT:64.600kg(Dosing) WT:64.6kg Patient is awake alert and oriented x3and in no acute distress HEENT:2+ carotid upstrokes, no evidence of carotid bruits LUNGS:Clear to auscultation bilaterally no rales rhonchi or wheezing HEART:Regular rate and rhythmno appreciable systolic murmur at the base consistent with aortic sclerosis ABDOMEN:Soft nontender nondistended positive bowel sounds EXTREMITIES:Diminishedpulses bilaterally PSYCHIATRIC:Patients affect appeared appropriate Assessment/Plan 1.Syncope Sounds suspicious forcardiac syncope. Recommend left heart catheterization to define her coronary anatomy given her multiplevascular issues as well as symptoms. 2.Chest pain Will continue her current medications for now including aspirinand Plavix. Depending on the results of her Further recrecommendations will follow. She will continue statin as well as her beta-tejal. She has sublingual nitroglycerin to use as needed. In the event that her symptoms worsen she should present to the [facility] emergency room for more urgent treatment. 3.CAD in [place] artery All of her prior caths were at [facility] well [facility]. She has had multipleLAD stents Mendez think one of them was in the RCA but I do not have her old cath reports to confirm all of this 4.Old inferior wall myocardial infarction We think this was around 2004. 5.PAD (peripheral artery disease) History ofleft femoral stentapproximately 2024 6.Carotid artery disease Left carotid endarterectomy 2021 right carotid [id number] Will schedule her catheterization in the very near future. Thank you for allowing me to participate in her care. I look forward to participating in her care with you. Problem List/Past Medical History Ongoing Aortoiliac occlusive disease CAD in [place] artery Carotid stenosis HTN (hypertension) PAD (peripheral artery disease) S/P carotid endarterectomy Smoker Tobacco user Procedure/Surgical History Redo right CEA| Service Date: 02/27/2024Left CEA - Carotid endarterectomy| Service Date: 08/07/2022 -Historyleftfemoralartery [id number] procedure was done via herright femoral artery -Myocardial infarctionaround 2004she underwent cath and stenting I think this was to her RCAbut also had LAD stenting x 2 at the time -Repeat cardiac catheterization in 2009withLAD stenting Cardiac History -Myocardial infarctionaround 2004she underwent cath and stenting I think this was to her RCAbut also had LAD stenting x 2 at the time -Repeat cardiac catheterization in 2010withLAD stenting -Dobutamine stress echo4positive symptoms withST changesequivocalecho changesinferior scarwithout improvement with dobutamine stress Medications albuterol(albuterol CFC free 90 mcg/inh MDI), 2 puff, inhaled, qid, PRN amLODIPine(amLODIPine 5 mg oral tablet) aspirin(aspirin 325 mg oral tablet) calcium-vitamin D(calcium-vitamin D 500 mg-5 mcg (200 intl units) oral tablet), 1 tab, PO, Daily clopidogrel(clopidogrel 75 mg oral tablet) dulaglutide(Trulicity Pen 0.75 mg/0.5 mL subcutaneous solution) furosemide(furosemide 20 mg oral tablet), 20 mg= 1 tab, PO, Daily insulin glargine(Basaglar KwikPen 100 units/mL subcutaneous solution), 20 unit, subQ, qhs lisinopril(lisinopril 2.5 mg oral tablet) metFORMIN(MetFORMIN (Eqv-Glucophage XR) 500 mg oral tablet, extended release) metoprolol(Metoprolol Succinate ER 100 mg oral tablet, extended release) montelukast(montelukast 10 mg oral tablet) nitroglycerin(nitroglycerin 0.4 mg sublingual tablet), 0.4 mg= 1 tab, SL, q5min, PRN, 1 refills pantoprazole(pantoprazole 40 mg oral delayed release tablet) PARoxetine(PARoxetine 10 mg oral tablet) rosuvastatin(rosuvastatin 20 mg oral tablet) Allergies Adhesive bandageSkin irritation Social History Smoking Status Current every day light smoker Tobacco - Low Risk Electronic Signature on File CC: Dina Benjamin DO [address] [id number] * Electronically Reviewed/Signed by: Isa Miranda DO Author Signature Dt/Tm:07/04/2024 02:25 PM Division of General Cardiology MLS Patient Care team information Care Team Personnel Name: LEANNE Alston Lynn Position: Physician Audience Coordinator Exempt - Vasc Surg Member Role: Lifetime Relationship Address: [address] [place] [id number] Name: DO Benjamin Jessie L Position: Referring Member Role: Primary Care Provider Address: [address] [address] [place]"
--- OUTSIDE RECORDS SUMMARY | 2024-07-15 07:06 | External Medical Summary | Continuity of Care Document ---
Author Name Unknown Organization [facility] Address [address] [place], [place] [id number] Care Team Providers Care Flood Control Engineer Name Role Phone Dina Benjamin Primary Care Physician [phone] [id number] Date[facility] 04/08/24 - 04/08/24 [facility] [address], [address] [place] [address] [phone] Discharge Disposition: Home or Self Care Attending [...] For Exam: aiod VL Aortoiliac Duplex Complete [facility] FINAL REPORT Name: YVONNE FLORES : 1955 Visit: [id number] Date: 08 Apr 2024 TYPE OF TEST: [...] Personnel Name: LEANNE Alston Lynn Position: Physician Regional Medical Director Exempt - Vasc Surg Member Role: Lifetime Relationship Address: Address: [address] [place] [id number] Name: DO Benjamin Jessie L Position: Referring Member Role: Primary Care Provider Address: Address: [address] [address] [place]
--- OUTSIDE RECORDS SUMMARY | 2024-07-15 07:06 | External Medical Summary | Continuity of Care Document ---
Author Name Unknown Organization [facility] 303 [facility] Address [address] [place], [place] [id number] Care Team Providers Care Electronic Drafter Name Role Phone Dina Benjamin Josafat Primary Care Physician [phone] Encounter [facility] [id number] Date(s): 04/21/24 - 04/21/[address] [facility] [address], [address] [place] [address] [phone] Encounter Diagnosis Carotid stenosis(Discharge Diagnosis) - 04/21/24 S/P carotid endarterectomy(Discharge Diagnosis) - 04/21/24 Aortoiliac occlusive disease(Discharge Diagnosis) - 04/21/24 Discharge Disposition: Home or Self Care Attending Physician: LEANNE Alston Lynn Allergies, Adverse Reactions, Alerts Substance Criticality Severity Reaction Reaction Severity Status Adhesive bandage Skin irritation Active Assessment and Plan Extracted from: Title:Clinical Document Author:LEANNE Alston Lynn Date:04/22/24 [facility]VI OUTPATIENT NOTE Name: YVONNE FLORES Patient Number: [id number] : 1955 Date of Service: 04/22/2024 Chief Complaint: _Follow-up for right CEA HPI: _Ms. Flores is an elderly female who presents to Dr. Singh vascular surgery clinic today for a 6-week follow-up visit regarding her redo right carotid endarterectomy which occurred at the end of February 2024 at [facility]. Patient states that her surgical incision is healing well and she is getting her neck mobility back. She denies any new symptoms of cerebrovascular insufficiency including amaurosis, extremity weakness numbness or tingling, difficulty speaking or swallowing, facial droop, sudden onset confusion. She does, unfortunately, complaining of some left hip and thigh discomfort which occurs after walking a short distance. Due to this, we recommended that she undergo ultrasound evaluation in light of her history of a left iliac artery stent. She denies any rest pain, nonhealing wounds or ulcerations, discoloration of the foot or toes. She states that after walking less than 100 yards she has significant pain in her left hip and into her anterior left thigh, which makes her have to stop and rest until the pain goes away and she is able to ambulate again. Imaging: Patient's carotid ultrasound performed prior to today's appointment demonstrates a widely patent right carotid endarterectomy redo site. She has about 60% restenosis of her left ICA endarterectomy site which is consistent with previous imaging. Her aortoiliac ultrasound demonstrated no aneurysms, and a widely patent left common iliac artery stent with no evidence of restenosis. Her bilateral lower extremity arterial ultrasound demonstrated mild diffuse peripheral arterial disease with bilateral ABIs of 1.0. Current Home Meds: (Last Updated 04/21 15:03) PARoxetine (PARoxetine 10 mg oral tablet) TAKE 1 TABLET BY MOUTH EVERY MORNING albuterol (albuterol CFC free 90 mcg/inh MDI) 2 puff inhaled qid PRN: as needed for wheezing amLODIPine (amLODIPine 5 mg oral tablet) TAKE 1 TABLET BY MOUTH EVERY MORNING aspirin (aspirin 325 mg oral tablet) take 1 tablet by mouth every morning with food calcium-vitamin D (calcium-vitamin D 500 mg-5 mcg (200 intl units) oral tablet) 1 tab PO bid clopidogrel (clopidogrel 75 mg oral tablet) TAKE 1 TABLET BY MOUTH EVERY DAY dapagliflozin (Farxiga 10 mg oral tablet) dulaglutide (Trulicity Pen 0.75 mg/0.5 mL subcutaneous solution) inject 0.5 milliliters ( 0.75 milligrams ) subcutaneously every w... (REFER TO PRESCRIPTION NOTES). furosemide (furosemide 20 mg oral tablet) 20 mg PO Daily edema/wt gain insulin glargine (Basaglar KwikPen 100 units/mL subcutaneous solution) 20 unit subQ qhs lisinopril (lisinopril 2.5 mg oral tablet) TAKE 1 TABLET BY MOUTH EVERY DAY metFORMIN (MetFORMIN (Eqv-Glucophage XR) 500 mg oral tablet, extended release) TAKE 1 TABLET BY MOUTH EVERY DAY metoprolol (Metoprolol Succinate ER 100 mg oral tablet, extended release) TAKE 1 TABLET BY MOUTH EVERY DAY montelukast (montelukast 10 mg oral tablet) TAKE 1 TABLET BY MOUTH EVERYDAY AT BEDTIME nitroglycerin (nitroglycerin 0.4 mg sublingual tablet) 0.4 mg SL q5min PRN: as needed for chest pain pantoprazole (pantoprazole 40 mg oral delayed release tablet) TAKE 1 TABLET BY MOUTH EVERY DAY rosuvastatin (rosuvastatin 20 mg oral tablet) TAKE 1 TABLET BY MOUTH EVERYDAY AT BEDTIME unlisted medication (CALCIUM 600-VIT D3 400 TABLET) TAKE 1 TABLET BY MOUTH EVERY DAY Allergies and Sensitivities: Adhesive bandage(Skin irritation) Past Medical History: Problems: S/P carotid endarterectomy Tobacco user Aortoiliac occlusive disease Carotid stenosis OBJECTIVE Vitals: Last Updated 04/21/24 15:07 Date Temp BP Location Pulse RR SpO2 Pain 04/21/24 0 04/21/24 118/64 Right Arm 77 95 03/11/24 120/58 Right Arm 69 97 Vital Signs are the last 3 documented. No Orthostatic Data Available Height and Weight: Last Updated 05/15/22 13:51 Date BMI Wt(kg) Wt(lb) Method Ht(cm) (ft-in) Method 05/15/22 62.3 137 Standing Scale Heights and Weights are the last 3 documented. Physical Exam Constitutional: In general patient is a healthy appearing for age well-nourished well-developed elderly female in no distress. He is alert and oriented without focal deficits. Her right carotid endarterectomy redo site had a small suture knot visible at the distal end of the incision, which was removed manually today. There is no erythema ecchymosis tenderness or discharge. There is no swelling. Her carotids do demonstrate bruits. Her femoral pulses are +2 bilaterally. Her lower extremity distal pulses are +1 and PT, +2 DP. She has brisk capillary refill and no sign of distal ischemia. There is no edema. ASSESSMENT: _ PLAN: _ 1 ) _status post right carotid artery endarterectomy redo Patient is overall doing well since her recent procedure. She has no concerning symptoms, and her surgical site is healing as expected, and her ultrasound demonstrates a patent surgical site. Her left ICA restenosis will be reevaluated on upcoming surveillance ultrasounds, and 6 months. 2 ) _left iliac artery stenosis Patient has a history of left iliac artery stenosis, having undergone a common iliac artery stent placement in the remote past. Her recent imaging does not demonstrate any restenosis of this area nor any further areas of concern through her aorta or external iliac artery, which would explain her left hip and thigh symptoms with ambulation. For this reason we recommend that she be reevaluated by her primary care physician for possible musculoskeletal causes. 3 ) _mild PAD Patient does appear to have very mild diffuse peripheral arterial disease, with no areas of hemodynamically significant stenosis, and bilateral ABIs of 1.0. Her pulses remain palpable and she has no sign of ischemia. If she begins to have worsening concerning symptoms in the legs, we will reevaluate her arterial disease. Thank you for letting us participate in the care of this patient. Addendum by LEANNE Alston Lynn on April 22, 2024 09:57 EDT DATE OF SERVICE SHOULD BE 04/21/24 Medications albuterol CFC free 90 mcg/inh MDI [...] Start Date: 12/24/23 Status: Ordered Mental Status 04/21/24 Barriers to Learning one year None evide nt Mandatory Health Literacy Documentation Yes Health Literacy Communication Barriers N ever Primary Language Kinyarwanda Problem List Condition Confirmation Course Effective Dates Status H ealt Status Informant Carotid stenosis Confirmed Active S/P carotid endarterectomy Confirmed Active Aortoiliac occlusive disease Confirmed Active Tobacco user Confirmed Active Diagnosis Diagnosis Type Effective Dates Health Status Clinical Service Informant Carotid stenosis Discharge Diagnosis 04/21/24 S/P carotid endarterectomy Discharge Diagnosis 04/21/24 Aortoiliac occlusive disease Discharge Diagnosis 04/21/24 Procedures Procedure Date Related Diagnosis Body Site Status Redo right CEA 02/27/24 Completed Left CEA - Carotid endarterectomy 08/07/22 Completed Vital Signs Most recent to oldest [Reference Range]: 1 Heart Rate 77 bpm (04/21/24 3:06 PM) Blood Pressure 118/64mmHg (04/21/24 3:06 PM) Cuff Pulse Pressure 54 mmHg (04/21/24 3:06 PM) BP Location # 1 Right Arm (04/21/24 3:06 PM) Social History Social History Type Response Smoking Status Never smoked cigaret angie Sex Female HVI Outpt Note * LEANNE Alston Lynn: PERFORM Event Display: HVI Outpt Note Authored Date: [id number] [facility]VI OUTPATIENT NOTE Name: YVONNE FLORES Patient Number: [id number] : 1955 Date of Service: 04/22/2024 Chief Complaint: _Follow-up for right CEA HPI: _Ms. Flores is an elderly female who presents to Dr. Singh vascular surgery clinic today for a6-week follow-up visit regarding her redo right carotid endarterectomy which occurred at the end 2023 at [facility]. Patient states that her surgical incision is healing well and she is getting her neck mobility back. She denies any new symptoms of cerebrovascular insufficiency including amaurosis, extremity weakness numbness or tingling, difficulty speaking or swallowing, facial droop, sudden onset confusion. She does, unfortunately, complaining of some left hip and thigh discomfort which occurs after walking a short distance. Due to this, we recommended that she undergo ultrasound evaluation in light of her history of a left iliac artery stent. She denies any rest pain, nonhealing wounds or ulcerations, discoloration of the foot or toes. She states that after walking less than 100 yards she has significant pain in her left hip and into her anterior left thigh, which makes her have to stop and rest until the pain goes away and she is able to ambulate again. Imaging: Patient's carotid ultrasound performed prior to today's appointment demonstrates a widely patent right carotid endarterectomy redo site. She has about 60% restenosis of her left ICA endarterectomy site which is consistent with previous imaging. Her aortoiliac ultrasound demonstrated no aneurysms, and a widely patent left common iliac artery stent with no evidence of restenosis. Her bilateral lower extremity arterial ultrasound demonstrated mild diffuse peripheral arterial disease with bilateral ABIs of 1.0. Current Home Meds: (Last Updated 04/21 15:03) PARoxetine (PARoxetine 10 mg oral tablet) TAKE 1 TABLET BY MOUTH EVERY MORNING albuterol (albuterol CFC free 90 mcg/inh MDI) 2 puff inhaled qid PRN: as needed for wheezing amLODIPine (amLODIPine 5 mg oral tablet) TAKE 1 TABLET BY MOUTH EVERY MORNING aspirin (aspirin 325 mg oral tablet) take 1 tablet by mouth every morning with food calcium-vitamin D (calcium-vitamin D 500 mg-5 mcg (200 intl units) oral tablet) 1 tab PO bid clopidogrel (clopidogrel 75 mg oral tablet) TAKE 1 TABLET BY MOUTH EVERY DAY dapagliflozin (Farxiga 10 mg oral tablet) dulaglutide (Trulicity Pen 0.75 mg/0.5 mL subcutaneous solution) inject 0.5 milliliters ( 0.75 milligrams ) subcutaneously every w... (REFER TO PRESCRIPTION NOTES). furosemide (furosemide 20 mg oral tablet) 20 mg PO Daily edema/wt gain insulin glargine (Basaglar KwikPen 100 units/mL subcutaneous solution) 20 unit subQ qhs lisinopril (lisinopril 2.5 mg oral tablet) TAKE 1 TABLET BY MOUTH EVERY DAY metFORMIN (MetFORMIN (Eqv-Glucophage XR) 500 mg oral tablet, extended release) TAKE 1 TABLET BY MOUTH EVERY DAY metoprolol (Metoprolol Succinate ER 100 mg oral tablet, extended release) TAKE 1 TABLET BY MOUTH EVERY DAY montelukast (montelukast 10 mg oral tablet) TAKE 1 TABLET BY MOUTH EVERYDAY AT BEDTIME nitroglycerin (nitroglycerin 0.4 mg sublingual tablet) 0.4 mg SL q5min PRN: as needed for chest pain pantoprazole (pantoprazole 40 mg oral delayed release tablet) TAKE 1 TABLET BY MOUTH EVERY DAY rosuvastatin (rosuvastatin 20 mg oral tablet) TAKE 1 TABLET BY MOUTH EVERYDAY AT BEDTIME unlisted medication (CALCIUM 600-VIT D3 400 TABLET) TAKE 1 TABLET BY MOUTH EVERY DAY Allergies and Sensitivities: Adhesive bandage(Skin irritation) Past Medical History: Problems: S/P carotid endarterectomy Tobacco user Aortoiliac occlusive disease Carotid stenosis OBJECTIVE Vitals: Last Updated 04/21/24 15:07 Date Temp BP Location Pulse RR SpO2 Pain 04/21/24 0 04/21/24 118/64 Right Arm 77 95 03/11/24 120/58 Right Arm 69 97 Vital Signs are the last 3 documented. No Orthostatic Data Available Height and Weight: Last Updated 05/15/22 13:51 Date BMI Wt(kg) Wt(lb) Method Ht(cm) (ft-in) Method 05/15/22 62.3 137 Standing Scale Heights and Weights are the last 3 documented. Physical Exam Constitutional: In general patient is a healthy appearing for age well-nourished well-developed elderly female in no distress. He is alert and oriented without focal deficits. Her right carotid endarterectomy redo site had a small suture knot visible at the distal end of the incision, which was removed manually today. There is no erythema ecchymosis tenderness or discharge. There is no swelling. Her carotids do demonstrate bruits. Her femoral pulses are +2 bilaterally. Her lower extremity distal pulses are +1 and PT, +2 DP. She has brisk capillary refill and no sign of distal ischemia. There is no edema. ASSESSMENT: _ PLAN: _ 1 ) _status post right carotid artery endarterectomy redo Patient is overall doing well since her recent procedure. She has no concerning symptoms, and her surgical site is healing as expected, and her ultrasound demonstrates a patent surgical site. Her left ICA restenosis will be reevaluated on upcoming surveillance ultrasounds, and 6 months. 2 ) _left iliac artery stenosis Patient has a history of left iliac artery stenosis, having undergone a common iliac artery stent placement in the remote past. Her recent imaging does not demonstrate any restenosis of this area norany further areas of concern through her aorta or external iliac artery, which would explain her left hip and thigh symptoms with ambulation. For this reason we recommend that she be reevaluated by her primary care physician for possible musculoskeletal causes. 3 ) _mild PAD Patient does appear to have very mild diffuse peripheral arterial disease, with no areas of hemodynamically significant stenosis, and bilateral ABIs of 1.0. Her pulses remain palpable and she has no sign of ischemia. If she begins to have worsening concerning symptoms in the legs, we will reevaluate her arterial disease. Thank you for letting us participate in the care of this patient. Electronic Signature on File Electronically Reviewed/Signed by: Charley Alston PA-C Author Signature Dt/Tm:04/22/2024 09:57 AM [facility] [place] 303 [facility], [address] [place]. [address] LM * LEANNE Alston Lynn: PERFORM Event Display: HVI Outpt Note Authored Date: [id number] DATE OF SERVICE SHOULD BE 04/21/24 Electronic Signature on File CC: DO Ximena Soni [address] [place] [id number] * CC: Isa Miranda DO [address] [facility] [address] Electronically Reviewed/Signed by: Charley Alston PA-C Author Signature Dt/Tm:04/22/2024 09:57 AM [facility] [place] [place] [address] Patient Care team information Care Team Personnel Name: LEANNE Alston Lynn Position: Physician Fall Intern Exempt - Vasc Surg Member Role: Lifetime Relationship Address: Address: [address] [place] [address] 1 [place] [address] Name: DO Benjamin Jessie L Position: Referring Member Role: Primary Care Provider Address: Address: [address]
--- OUTSIDE RECORDS SUMMARY | 2024-07-15 07:06 | External Medical Summary | Continuity of Care Document ---
Author Name Unknown Organization [facility] Address [address] [place], [place] [id number] Care Team Providers Care Paper Cone Drying Machine Operator Name Role Phone Dina Benjamin Primary Care Physician [phone] [id number] Date(s): 04/08/24 - 04/08/24 [facility] [address], [address] [place] [address] [phone] Discharge Disposition: Home or Self Care Attending [...] Date Time Procedure Performing Provider Status 04/08/24 10:17 AM VL Lower Ext Arterial Duplex Bilateral Sunday, Aditi; Final Notes: (VL Lower Ext Arterial Duplex Bilateral) Reason For Exam: pad VL Lower Ext Arterial Duplex Bilateral [facility] FINAL REPORT Name: YVONNE FLORES : 1955 Visit: [id number] Date: 08 Apr 2024 TYPE OF TEST: Extremity Arterial Duplex REASON FOR TEST PAD INTERPRETATION/FINDINGS Arterial duplex imaging performed of the bilateral lower extremities: 1. Patent bilateral distal external iliac, common femoral, proximal profunda femoris, superficial femoral, popliteal, anterior tibial, posterior tibial and peroneal arteries without hemodynamically significant stenosis. 2. The right ankle/brachial index is 1.03 (normal). 3. The left ankle/brachial index is 1.08 (normal). No previous studies available for comparison. IMPRESSION/COMMENTS I have personally reviewed the data relevant to the interpretation of this study. TECHNOLOGIST: Aditi Mayfield RDCS, RVT PHYSICIAN: Wong Singh M.D. Signed: 04/08/2024 12:15 PM Final Dictated by:MD Singh Eugene J Dictated DT/TM:04/08/2024 12:16 Signed by:MD Singh Eugene J Signed (Electronic Signature):04/08/2024 12:15 Transcribed by:MONICAS Social History Social History Type Response Smoking Status Never smoked cigaret angie Sex Female Patient Care team information Care Team Personnel Name: LEANNE Alston Lynn Position: Physician Finish Off Operator Exempt - Vasc Surg Member Role: Lifetime Relationship Address: Address: [address] [place] [address] [place] Name: DO Benjamin Jessie L Position: Referring Member Role: Primary Care Provider Address: Address: [address] [address] [place]
--- OUTSIDE RECORDS SUMMARY | 2024-07-15 07:06 | External Medical Summary | Continuity of Care Document ---
Author Name Unknown Organization [facility] Address [address] [place], [place] [id number] Care Team Providers Care Drying Unit Felting Machine Operator Name Role Phone Dina Benjamin Primary Care Physician [phone] [id number] Date(s): 04/08/24 - 04/08/24 [facility] [address], [address] [place] [address] [phone] Discharge Disposition: Home or Self Care Attending [...] pad VL Lower Ext Arterial Duplex Bilateral [facility] FINAL REPORT Name: YVONNE FLORES : 1955 Visit: [id number] Date: 08 Apr 2024 TYPE OF TEST: [...] TECHNOLOGIST: Aditi Mayfield RDCS, RVT PHYSICIAN: Wong Snigh M.D. Signed: 04/08/2024 12:15 PM Final Dictated by:MD Singh Eugene J Dictated DT/TM:04/08/2024 12:16 Signed by:MD Singh Eugene J Signed (Electronic Signature):04/08/2024 12:15 Transcribed by:MONICAS Social History Social History Type Response Smoking Status Never smoked cigaret angie Sex Female Patient Care team information Care Team Personnel Name: LEANNE Alston Lynn Position: Physician Slip Dumper Exempt - Vasc Surg Member Role: Lifetime Relationship Address: Address: [address] [place] [address] [place] Name: DO Benjamin Jessie L Position: Referring Member Role: Primary Care Provider Address: Address: [address] [address] [place]
--- OUTSIDE RECORDS SUMMARY | 2024-07-15 07:06 | External Medical Summary | Continuity of Care Document ---
Author Name Unknown Organization [facility] Address [address] [place], [place] [phone] Care Team Providers Care Day Habilitation Specialist Name Role Phone Dina Benjamin Primary Care Physician [phone] [id number] Date(s): 04/08/24 - 04/08/[address], [address] [place] [address] [phone] Discharge Disposition: Home or Self Care Attending [...] Performing Provider Status 04/08/24 10:16 AM VL Carotid Duplex Bilateral Sunday, Yimi dahly; Final Notes: (VL Carotid Duplex Bilateral) Reason For Exam: bonny VL Carotid Duplex Bilateral [facility] FINAL REPORT Name: YVONNE FLORES : 1955 Visit: [id number] Date: 08 Apr 2024 TYPE OF TEST: Cerebrovascular Duplex REASON FOR TEST Known carotid stenosis, Redo Rt. CEA INTERPRETATION/FINDINGS Duplex imaging performed of the bilateral extracranial arteries: 1. Patent right carotid endarterectomy with no evidence of restenosis (S/P redo carotid endarterectomy 02/2024). 2. Patent left carotid endarterectomy with 60-69% restenosis. Small, mobile piece of echogenic material seen within the proximal ICA. 3. Normal, antegrade flow in the bilateral vertebral arteries. 4. Normal flow in the bilateral proximal subclavian arteries. Plaque Morphology: 1. Intimal hyperplasia in the left bulb and internal carotid artery S/P endarterectomy. Small, mobile piece of echogenic material seen within the proximal ICA. Since the previous study performed 12/24/2023, the patient has undergone a redo right carotid endarterectomy. No change in the degree of the left ICA stenosis. IMPRESSION/COMMENTS I have personally reviewed the data relevant to the interpretation of this study. TECHNOLOGIST: Aditi Mayfield RDCS, RVT PHYSICIAN: Wong Singh M.D. Signed: 04/08/2024 10:54:33 AM Final Dictated by:MD Singh Eugene J Dictated DT/TM:04/08/2024 10:54 Signed by:MD Singh Eugene J Signed (Electronic Signature):04/08/2024 10:54 Transcribed by:RONNY Social History Social History Type Response Smoking Status Never smoked cigaret angie Sex Female Patient Care team information Care Team Personnel Name: LEANNE Alston Lynn Position: Physician Beader Exempt - Vasc Surg Member Role: Lifetime Relationship Address: Address: [address] [place] [address] Name: DO Benjamin Jessie L Position: Referring Member Role: Primary Care Provider Address: Address: [address] [place] [address] [place]
--- OUTSIDE RECORDS SUMMARY | 2024-07-15 07:07 | External Medical Summary | Continuity of Care Document ---
Author Name Unknown Organization [facility] Address [address] [place], [place] [id number] Care Team Providers Care Osha Inspector Name Role Phone Dina Benjamin Primary Care Physician [phone] [id number] Date(s): 04/08/24 - 04/08/[address], [address] [place] [phone] Discharge Disposition: Home or Self Care Attending [...] For Exam: bonny VL Carotid Duplex Bilateral [facility] FINAL REPORT Name: YVONNE FLORES : 1955 Visit: [id number] Date: 08 Apr 2024 TYPE OF TEST: [...] Personnel Name: LEANNE Alston Lynn Position: Physician Exhibitor Sales Exempt - Vasc Surg Member Role: Lifetime Relationship Address: Address: [address] [place] [id number] Name: DO Benjamin Jessie L Position: Referring Member Role: Primary Care Provider Address: Address: [address] [place] [address] [place]
--- OUTSIDE RECORDS SUMMARY | 2024-07-15 07:07 | External Medical Summary | Continuity of Care Document ---
Author Name Unknown Organization [facility] Address [address] [place], [place] [id number] Care Team Providers Care Animal Care Provider Name Role Phone Dina Benjamin Primary Care Physician [phone] Encounter [facility] [id number] Date(s): 03/11/24 - 03/11/24 [facility] [address], [address] [place] [address] [phone] Encounter Diagnosis S/P carotid endarterectomy(Discharge Diagnosis) - 03/11/24 Discharge Disposition: Home or Self Care Attending Physician: MD Singh Eugene J Referring Physician: DO Benjamin Jessie L Allergies, Adverse Reactions, Alerts Substance Reaction Severity Status Adhesive bandage Skin irritation Active Assessment and Plan Extracted from: Title:Clinical Document Author:LEANNE Alston Lynn Date:03/11/24 [facility] OUTPATIENT NOTE Name: YVONNE FLORES Patient Number: [id number] : 1955 Date of Service: 03/11/2024 Chief Complaint: _Follow-up after CEA HPI: _Ms. Flores is an elderly female who presents to Dr. Singh vascular surgery clinic today for a 2 postop visit after undergoing a redo right carotid endarterectomy performed at [facility]. Patient states overall she is doing well. She has discomfort when moving her head left to right and up and down, but otherwise denies any significant complaints. Specifically she denies any loss of vision, chest pain, syncope, unilateral extremity weakness numbness or tingling, other concerns. Current Home Meds: (Last Updated 03/11 13:14) PARoxetine (PARoxetine 10 mg oral tablet) TAKE [...] disease Carotid stenosis OBJECTIVE Vitals: Last Updated 03/11/24 13:18 Date Temp BP Location Pulse RR SpO2 Pain 03/11/24 120/58 Right Arm 69 97 03/11/24 0 01/28/24 0 Vital Signs are the last 3 documented. No Orthostatic Data Available Height and Weight: Last Updated 05/15/22 13:51 Date BMI Wt(kg) Wt(lb) Method Ht(cm) (ft-in) Method 05/15/22 62.3 137 Standing Scale Heights and Weights are the last 3 documented. Physical Exam Constitutional: In general patient is a healthy-appearing well-nourished well-developed elderly female no distress. She is alert and oriented with any focal deficits. Her right neck CEA incision is healing as expected. It is mildly tender. There is mild local edema and ecchymosis. There is no erythema or drainage. ASSESSMENT: _ PLAN: _ 1 ) _status post right CEA redo Patient is overall doing well from her recent procedure. She is recovering as expected. She plans to go back to work starting on March 17. She did drop off disability paperwork and wishes us to fax this to the facility once completed. She will return here in 6 weeks for reevaluation with a carotid ultrasound prior to that office visit, as well as imaging of her aortoiliac and bilateral lower extremity arteries due to her history of aortoiliac occlusive disease and peripheral arterial disease. She is advised to call any other questions or concerns. She is in agreement to this plan. Thank you for letting us participate in the care of this patient. Medications albuterol CFC free 90 mcg/inh MDI Start: 03/27/22 15:34:00 EDT, 2 puff, inhaled, qid, PRN: as [...] (200 intl units) oral tablet Start: 03/27/22 15:33:00 EDT, 1 tab, PO, bid Start Date: 03/27/22 Status: Ordered clopidogrel 75 mg oral tablet TAKE 1 TABLET BY MOUTH EVERY DAY Start Date: 03/27/22 Status: Ordered Farxiga 10 mg oral tablet Start: 12/24/23 15:44:00 EST Start Date: 12/24/23 Status: Ordered furosemide 20 mg oral tablet Start: 03/27/22 15:34:00 EDT, 1 tab, PO, Daily, edema/wt gain [...] nitroglycerin 0.4 mg sublingual tablet Start: 03/27/22 15:30:00 EDT, 1 tab, SL, q5min, Disp# 25 [...] Start Date: 12/24/23 Status: Ordered Mental Status 03/11/24 Barriers to Learning one year None evide nt Mandatory Health Literacy Documentation Yes Health Literacy Communication Barriers N ever Primary Language Belarusian Problem List Condition Confirmation Course Effective Dates Status H ealth Status Informant Carotid stenosis Confirmed Active S/P carotid endarterectomy Confirmed Active Aortoiliac occlusive disease Confirmed Active Tobacco user Confirmed Active Diagnosis Diagnosis Type Effective Dates Health Status Clinical Service Informant S/P carotid endarterectomy Discharge Diagnosis 03/11/24 Procedures Procedure Date Related Diagnosis Body Site Status Left CEA - Carotid endarterectomy 08/07/22 Completed Vital Signs Most recent to oldest [Reference Range]: 1 Heart Rate 69 bpm (03/11/24 1:18 PM) Blood Pressure 120/58mmHg (03/11/24 1:18 PM) Cuff Pulse Pressure 62 mmHg (03/11/24 1:18 PM) BP Location # 1 Right Arm (03/11/24 1:18 PM) Social History Social History Type Response Smoking Status Never smoked cigaret angie Sex Female [facility] Outpt Note * LEANNE Alston, Charley: PERFORM Event Display: [facility] Outpt Note Authored Date: [id number] [facility] OUTPATIENT NOTE Name: YVONNE FLORES Patient Number: [id number] : 1955 Date of Service: 03/11/2024 Chief Complaint: _Follow-up after CEA HPI: _Ms. Flores is an elderly female who presents to Dr. Singh vascular surgery clinic today for a2 postop visit after undergoing a redo right carotid endarterectomy performed at [facility]. Patient states overall she is doing well. She has discomfort when moving her head left to right and up and down, but otherwise denies any significant complaints. Specifically she denies any loss of vision, chest pain, syncope, unilateral extremity weakness numbness or tingling, other concerns. Current Home Meds: (Last Updated 03/11 13:14) PARoxetine (PARoxetine 10 mg oral tablet) TAKE [...] disease Carotid stenosis OBJECTIVE Vitals: Last Updated 03/11/24 13:18 Date Temp BP Location Pulse RR SpO2 Pain 03/11/24 120/58 Right Arm 69 97 03/11/24 0 01/28/24 0 Vital Signs are the last 3 documented. No Orthostatic Data Available Height and Weight: Last Updated 05/15/22 13:51 Date BMI Wt(kg) Wt(lb) Method Ht(cm) (ft-in) Method 05/15/22 62.3 137 Standing Scale Heights and Weights are the last 3 documented. Physical Exam Constitutional: In general patient is a healthy-appearing well-nourished well- developed elderly female no distress. She is alert and oriented with any focal deficits. Her right neck CEA incision is healing as expected. It is mildly tender. There is mild local edema and ecchymosis. There is no erythema or drainage. ASSESSMENT: _ PLAN: _ 1 ) _status post right CEA redo Patient is overall doing well from her recent procedure. She is recovering as expected. She plans to go back to work starting on March 17. She did drop off disability paperwork and wishes us tofax this to the facility once completed. She will return here in 6 weeks for reevaluation with a carotid ultrasound prior to that office visit, as well as imaging of her aortoiliac and bilateral lower extremity arteries due to her history of aortoiliac occlusive disease and peripheral arterial disease. She is advised to call any other questions or concerns. She is in agreement to this plan. Thank you for letting us participate in the care of this patient. Electronic Signature on File CC: Dina Benjamin DO [facility] [address] [facility] [id number] * CC: Isa Miranda DO [address] [id number] * Electronically Reviewed/Signed by: Charley Alston PA-C Author Signature Dt/Tm:03/11/2024 01:43 PM [facility] [place] [place] 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 ([place], [place]) [address] [place] [id number]
--- NOTE | 2024-07-15 07:25 | History & Physical Bridge Note ---
Date of Service July 15, 2024 History & Physical Bridge Note I have examined the patient, reviewed the History & Physical and in the interval since the performance of the History & Physical I have noted the following changes of clinical significance: no changes noted
--- NOTE | 2024-07-15 07:26 | Pre Anesthesia Assessment ---
Date of Service July 15, 2024 Pre Sedation Assessment Cardiovascular + regular rate Respiratory + respiratory effort normal Pre-Sedation Airway Assessment Smoking Status: Current every day smoker (-advised) Hx Sleep Apnea: No Hx Difficult Intubation: No Short, Thick Neck: No Thyromental Distance: < 3.5 Finger Breadths Oral Cavity: + Dental Abnormalities Mallampati Class: III ASA: ASA3 Procedure Planning Contraindications for Sedation: none Current Medications Reviewed: Yes Notes The planned sedation has been discussed with the patient. Informed Consent was obtained. I have identified the patient, determined the appropriateness of sedation and have assessed the patient immediately prior to the procedure. All medicine(s) and interventions are by my order.
[2024-07-15 07:36] LABS: Basophils # (auto) 0.06 K/uL (0.00-0.20); Basophils % (auto) 0.5 %; Eosinophils # (auto) 0.13 K/uL (0.00-0.50); Eosinophils % (auto) 1.2 %; Immature Granulocytes # (auto) 0.06 K/uL (0.01-0.20); Immature Granulocytes % (auto) 0.5 %; Lymphocytes % (auto) 23.5 %; Mean Corpuscular Hemoglobin 29.3 pg (25.0-34.0); Mean Corpuscular Volume 86.2 fL (80.0-100.0); Mean Platelet Volume 10.5 fL (9.4-12.4); Monocytes # (auto) 0.76 K/uL (0.11-0.59); Monocytes % (auto) 6.9 %; Neutrophils # (auto) 7.46 K/uL (1.40-6.50); Neutrophils % (auto) 67.4 %; Platelet Count 201 K/uL (130-400); RDW Coefficient of Variation 13.5 % (11.5-14.5); RDW Standard Deviation 42.4 fL (36.4-46.3); White Blood Count 11.07 K/ul (4.8-10.8)
[2024-07-15] MEDS: fentaNYL citrate PF 100 MCG/2 ML VIAL ONE ×2 (09:04→09:27)
[2024-07-15] MEDS: MIDAZOLAM HCL 1 MG/ML 2ML VIAL ONE ×2 (09:04→09:07)
[2024-07-15] MEDS: HEPARIN (PORCINE) 1000 UNIT/ML 10 ML (CATH LAB USE ONLY) ONE (09:24)
[2024-07-15] MEDS: PHENYLEPHRINE 100MCG/ML 5ML SYR ONE (09:25)
[2024-07-15] MEDS: niCARdipine HCL INJ 2.5 MG/ML 10 ML AMP ONE (09:31)
[2024-07-15] MEDS: NITROGLYCERIN/D5W 100MCG/ML 20ML SYR ONE (09:31)
[2024-07-15] MEDS: ATROPINE SULFATE 0.1 MG/ML 10ML SYR IV ONE (09:32)
[2024-07-15] MEDS ORDERED: ONDANSETRON INJ 2 MG/ML 2 ML VIAL IV PRN (09:43)
--- NOTE | 2024-07-15 09:43 | Post Anesthesia Assessment ---
Date of Service July 15, 2024 Post Sedation Assessment Vital Signs Pulse Resp BP Pulse Ox O2 Del Method 07/15/24 07:18 69 16 143/87 H 96 Room Air Recovery Score Activity: Moves 4 extremities Respiration: Deep Breath/Cough Circulation: +/-20% PreAnes Value Consciousness: Fully Awake Oxygen Saturation: O2 needed for >90% Discharge Sedation Level of Care: Fast Track Phase II Post Sedation Plan On clinical assessment, the patient appears to have tolerated the sedation without complications. Patient is recovering as anticipated. Patient will continue to be monitored by nursing and may be discharged when se dation discharge criteria are met per below protocol. Upon Completions of procedure up to 15 minutes continue every 5 minute vital signs and the P.A.R. score; then discharge to a Phase I or Fast Track to Phase II per the following guidelines: * Discharge Patient to appropriate Phase II area if PAR is 8 or greater or return to pre- procedure baseline. The post - procedure orders will be as directed. * If PAR score is less than 8 or not return to pre-procedure baseline then patient will follow Phase I monitoring till PAR is reached for Phase II. The Phase I may be done in procedure room or may call to secure a Phase I area. * If naloxone or flumazenil are used for reversal, hold in Phase I for continued monitoring from when last reversal dose was given for a minimum of 60 minutes or longer pending the nurse and/or physician discretion of patient condition before discharge to Phase II. Please call the Sedation Physician to re-evaluate and complete post-note for discharge to Phase II area. Do NOT discharge from procedure sedation or Phase 1 until post- sedation evaluation note is complete by procedure /sedation MD Sedation Discharge Instructions to be given to the patient at discharge to home.
[2024-07-15] MEDS: CLOPIDOGREL BISULFATE 300 MG TAB ONE (09:47)
[2024-07-15] MEDS: OPTIRAY 350 ONE (09:49)
[2024-07-15] MEDS ORDERED: ALBUTEROL HFA 8 GM INHALER INH PRN (09:49)
[2024-07-15] MEDS ORDERED: oxyCODONE/ACETAMINOPHEN 5mg/325mg TAB PO PRN (09:49)
[2024-07-15] MEDS ORDERED: NITROGLYCERIN SL 0.4 MG/TAB TAB SL PRN (09:49)
[2024-07-15] MEDS ORDERED: ACETAMINOPHEN 325 MG TAB PO PRN (09:53)
[2024-07-15] MEDS ORDERED: GLUCAGON FOR INJ 1 MG VIAL SQ PRN (09:56)
[2024-07-15] MEDS ORDERED: GLUCOSE 10 TAB/TUBE PO PRN (09:56)
[2024-07-15] MEDS ORDERED: GLUCOSE 40% GEL 15 GM TUBE PO PRN (09:56)
[2024-07-15] MEDS ORDERED: PHARMACY GLYCEMIC MGMT CONSULT PRN (09:56)
[2024-07-15] MEDS ORDERED: CARBOHYDRATES FOR HYPOGLYCEMIA PO PRN (09:56)
[2024-07-15] MEDS ORDERED: DEXTROSE 50% 50 ML SYRINGE IV PRN (09:56)
--- NOTE | 2024-07-15 10:22 | Cardiac Catheterization ---
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 Cardiac Status Clinical evaluation leading to the procedure CAD Presenation: Stable angina Anginal Classification: CCS III Diagnostic Physicians Name: Jose Blakely MD Closure Device Recommendations: PCI without planned CABG Cardiac Cath Procedure Full Procedure Date July 15, 2024 Pre-Procedure Diagnosis Pre-Procedure Diagnosis: Angina, Positive Stress Test and CAD AUC Score AUC Score: 7 Post-Procedure Diagnosis Post-Procedure Diagnosis: Severe CAD, Successful PCI and Normal Intracardiac Pressures Procedure(s) Performed Procedure(s) Performed: Coronary Angiography, Left Heart Cath, Drug Eluting Stent, IVUS and Procedure (Shockwave intravascular lithotripsy) 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 History of coronary artery disease post multiple stents to LAD, last in 2009. Access: 6 Fr right radial artery Catheters: [place], EBU 3.5 guide Findings: LM -medium caliber, 20% proximal disease LAD -medium caliber, calcified, severe diffuse in-stent restenosis in proximal to mid LAD stents. 80% ISR at proximal edge, 70% ISR in midportion of stent after takeoff of D1. 70-80% in-stent disease at distal edge of prior stents. Remainder of vessel small to medium caliber without significant disease and wraps around apex. Small jailed D1 without significant disease. Small D3 without disease. Circumflex -dominant, 20% proximal, 30-40% distal stenosis. 75% ostial medium OM 2. Small L PDA without significant disease. RCA -small, nondominant, 60-70% mid segment stenosis LVEDP -2 -- PCI -- Antithrombotic therapy: Heparin, clopidogrel Procedure: Left main cannulated with EBU 3.5 guide Pre-procedure flow DAVIN 3 Membership Administrator 50 wire passed across lesion into distal vessel Proximal to mid LAD in-stent disease predilated with 2.5 compliant balloon Stents further dilated with 3.0 NC balloon to high atmospheres Subramanian IVUS catheter placed to mid LAD. Pullback revealed calcified disease with residual significant narrowing and midportion of stents and at proximal edge. Mild proximal LAD disease upstream from stents. No significant left main disease. Stents further dilated with shockwave intravascular lithotripsy (3.5 balloon, 110 pulses) Stent (2.75 x 26 mm [place]) placed across mid to distal aspect of prior stents extending across distal edge into mid LAD. Second BREN (3.0 x 22 mm [place]) placed across proximal aspect of prior stents extending across proximal edge, sparing LAD ostium. Following stent placement had worsening chest pain and noted to have compromised flow in small second septal and jailed D1. Received additional pain medicines, vasodilators and became transiently hypotensive requiring IV fluids, atropine and single bolus of phenylephrine with improvement in BP Stents post-dilated with 3.5 noncompliant balloon Post procedure DAVIN 3 flow, stents well expanded with minimal residual stenosis. No flow in small second septal, jailed D1. Arterial Closure: TR band Summary: 1. Multi-vessel coronary artery disease -Severe diffuse in-stent restenosis up to 80% in proximal to mid LAD stents 75% ostial OM2 60% mid small nondominant RCA 2. Normal intracardiac filling pressure 3. Successful PCI of proximal to mid LAD in-stent restenosis with intravascular lithotripsy and 2 new drug-eluting stents overlapping entirety of prior stents (3.0 x 22, 2.75 x 26 mm [place]; postdilated with 3.5 NC) . Recommendations: To PCU for continued monitoring Reloaded with clopidogrel 300 mg in Treatment Plant Mechanic Continue extended DAPT with multiple overlapping stents Continue statin, and ASCVD risk factor modification Consult cardiac Rehab Hemodynamics Rest Ao:: 87/45/71 Final Ao: 76/39/53 LV: 96/2 Recommendations Recommendations: PCI without planned CABG Specimens Specimens: None Radiation Exposure (mGy) 2032 Contrast (mls) 120 Anesthesia Moderate 6602-8789 Procedural Complication(s) None Disposition PCU I attest to the content of the Intraoperative Record and any orders documented therein. Any exceptions are noted below. [facility] Card Cath Procedure Codes Cardiac Catheterization Procedure 1: Cardiovascular Cath Procedures: 85138 Coronaries and LHC (+/-LV) Therapeutic Services & Ancillary Procedure 1: Cardiovascular Tx and Anc Procedures: 52383 IV Ultrasound (Coronary or Graft) Moderate Sedation Procedure 1: Sedation/Anesthesia: 78078 Mod Sedation by the same physician;Init15 Min Child Age 5 & Up Procedure 2: Sedation/Anesthesia: 03052 Mod Sedation by the same physician; Ea [id number] Minutes Stenting Procedure 1: Cardiovascular Stent Procedures: 34610 Perc transcatheter placement of intracoronary stent(s), with ang PG Care Time/CCT Total # of Minutes Spent Total Time Spent with Patient: Total time spent is greater than 50% in coordination of care (as documented) at patient's floor/unit and/or counseling patient:
[2024-07-15] MEDS ORDERED: MoRPHine SULFATE 2 MG/ML CARP IV PRN (10:48)
--- NOTE | 2024-07-15 12:02 | Electrocardiogram Report ---
Test Reason : Blood Pressure : */* mmHG Vent. Rate : 70 BPM Atrial Rate : 70 BPM P-R Int : 142 ms QRS Dur : 72 ms QT Int : 430 ms P-R-T Axes : 75 71 1 degrees QTcB Int : 464 ms Normal sinus rhythm Possible Left atrial enlargement Borderline ECG When compared with ECG of 14-Feb-2024 13:43, Inverted T waves have replaced nonspecific T wave abnormality in Inferior leads Nonspecific T wave abnormality no longer evident in Lateral leads Confirmed by Ra Olivas ([id number]) on 07/15/2024 12:01:52 PM Referred By: Isa Miranda Confirmed By: Ra Olivas
[2024-07-15] MEDS: DOPamine 400MG / 250ML D5W (Cath Lab Use ONLY) IV ONE (14:11)
--- NOTE | 2024-07-15 14:50 | Pharmacy Report ---
Pharmacy Glycemic Short Note 2 - Date of Service July 15, 2024 - Glycemic Short BSG Results (Last 24 hours): 07/15/24 14:20 POC Glucose 110 H OUTPATIENT ANTIDIABETIC REGIMEN: * Basaglar 20 units SC qPM * Dapagliflozin 5 mg PO qAM * Dulaglutide 0.75 mg SC weekly * Metformin 500 mg PO qAM HbA1c: 7% (02/14/24) ASSESSMENT: * CW is a 68 year old female POD #0 s/p cardiac catheterization w/ stenting * Patient with well-controlled T2DM as an outpatient on multiple antidiabetic agents * Blood sugar postoperatively of 110 mg/dL * Prior inpatient glycemic data suggests conservative initial insulin dosing is warranted * Per med rec, patient received dapagliflozin prior to admission PLAN FOR INPATIENT GLYCEMIC CONTROL: * Hold outpatient oral diabetes medications * Basal insulin * Lantus 0-5-10 units SC HS (see EHR for details) * Bolus insulin * NovoLog per scale ACHS or Q6hrs while NPO * Goal Range: Low 110 mg/dL - High 140 mg/dL * Correction Factor: 45 mg/dL/unit * Nutritional / Prandial insulin per carb ratio of 1 unit per 15 grams CHO consumed
[2024-07-15] MEDS: SODIUM CHLORIDE 0.9% 1,000 ML IV SCH (14:58)
[2024-07-15] MEDS: INSULIN ASPART PER UNIT CHARGE SC SCH (15:15)
[2024-07-15] MEDS: oxyCODONE HCL IR 5 MG TAB (IMMEDIATE RELEASE) PO PRN (18:00)
[2024-07-15] MEDS: LANTUS PER UNIT CHARGE SC SCH (20:57)
[2024-07-16 08:15] LABS: Estimated Average Glucose 157 mg/dl; Hemoglobin A1C 7.1 % (4.5-5.6)
[2024-07-16] MEDS: LANTUS PER UNIT CHARGE SC SCH (08:44)
[2024-07-16] MEDS: PARoxetine HCL 10 MG TAB PO SCH (08:46)
[2024-07-16] MEDS: ROSUVASTATIN CALCIUM 20 MG TAB PO SCH (08:46)
[2024-07-16] MEDS: CLOPIDOGREL BISULFATE 75 MG TAB PO SCH (08:47)
[2024-07-16] MEDS: amLODIPine BESYLATE 5 MG TAB PO SCH (08:47)
[2024-07-16] MEDS: PANTOprazole 40 MG TAB PO SCH (08:48)
[2024-07-16] MEDS: CALCIUM 600MG + VIT D 400 IU TAB PO SCH (08:48)
[2024-07-16] MEDS: MONTELUKAST SODIUM 10 MG TABLET PO SCH (08:49)
[2024-07-16] MEDS ORDERED: NON-FORMULARY MEDICATION (Dapagliflozin Propanediol [Farxiga] 10 mg tablet) PO SCH (09:00)
[2024-07-16] MEDS: ASPIRIN 81 MG ECTAB PO SCH (09:40)
[2024-07-16 11:29] VITALS: PULSE 67; RESP 19; TEMP 98.4; O2SAT 92
[2024-07-16 12:39] VITALS: BP 143/87
--- NOTE | 2024-07-16 14:49 | Discharge Summary ---
Date of Service July 16, 2024 Admission HPI Per Admitting Provider Ms. Galeano is a very pleasant 68-year-old woman with a history of type 2 diabetes, Carotid artery disease post bilateral CEA, prior CVA and CAD post multiple prior LAD stents. She was referred by her rehabilitation inspector Dr. Miranda for cardiac catheterization due to exertional anginal symptoms and abnormal stress test. Discharge Data Procedures Performed Operation Date: 07/15/24 08:00 Actual Procedures p Cineradiography w/Routine Exam - Jose Blakely MD p Cath, Left with Cors and Vent - Jose Blakely MD p Drug Eluting Stent SGl Vessel - Jose Blakely MD Hospital Course (1) CAD (coronary artery disease): Plan Patient underwent cardiac catheterization via right radial artery. Summary of findings: 1. Multi-vessel coronary artery disease -Severe diffuse in-stent restenosis up to 80% in proximal to mid LAD stents 75% ostial OM2 60% mid small nondominant RCA 2. Normal intracardiac filling pressure 3. Successful PCI of proximal to mid LAD in-stent restenosis with intravascular lithotripsy and 2 new drug-eluting stents overlapping entirety of prior stents (3.0 x 22, 2.75 x 26 mm [place]; postdilated with 3.5 NC) . Post procedure course: Admitted to telemetry for further observation. She had mild persistent chest pain postprocedure which was attributed to pinched small diagonals/septals postintervention. During her observation she remained hemodynamically and electrically stable. Chest pain went away overnight. On day of discharge chest pain-free feeling well. No access site complications. She was discharged to home on her prior DAPT with aspirin, clopidogrel. Will follow-up with Dr. Miranda as scheduled for ongoing cardiac care. Discharge Instructions Home Medications amlodipine 5 mg tablet 5 mg PO QAM 05/26/22 [History Confirmed 07/15/24] calcium carbonate 600 mg-vitamin D3 10 mcg (400 unit) capsule 1 cap PO QAM 05/26/22 [History Confirmed 07/15/24] clopidogrel 75 mg tablet 75 mg PO QAM 05/26/22 [History Confirmed 07/15/24] insulin glargine 100 unit/mL (3 mL) subcutaneous pen (Basaglar KwikPen U-100 Insulin) 20 unit subcut QPM 05/26/22 [History Confirmed 07/15/24] lisinopril 2.5 mg tablet 2.5 mg PO QAM 05/26/22 [History Confirmed 07/15/24] metformin 500 mg tablet,extended release 24 hr 500 mg PO QAM 05/26/22 [History Confirmed 07/15/24] metoprolol succinate 100 mg tablet,extended release 24 hr 100 mg PO QAM 05/26/22 [History Confirmed 07/15/24] montelukast 10 mg tablet 10 mg PO QAM 05/26/22 [History Confirmed 07/15/24] nitroglycerin 0.4 mg sublingual tablet 0.4 mg sublingual Q5M PRN chest pain 05/26/22 [History Confirmed 07/15/24] pantoprazole 40 mg tablet,delayed release 40 mg PO QAM 05/26/22 [History Confirmed 07/15/24] paroxetine HCl 10 mg tablet 10 mg PO QAM 05/26/22 [History Confirmed 07/15/24] dapagliflozin propanediol 10 mg tablet (Farxiga) 5 mg PO QAM 06/06/22 [History Confirmed 07/15/24] furosemide 20 mg tablet 20 mg PO QAM PRN Edema 06/06/22 [History Confirmed 07/15/24] rosuvastatin 40 mg tablet 40 mg PO QAM 08/03/22 [History Confirmed 07/15/24] aspirin 325 mg tablet 325 mg PO QAM 12/13/23 [History Confirmed 07/15/24] albuterol sulfate 90 mcg/actuation aerosol inhaler 1 inh inhalation QID PRN sob 01/30/24 [History Confirmed 07/15/24] dulaglutide 0.75 mg/0.5 mL subcutaneous pen injector (Trulicity) 0.75 mg subcut WK 01/30/24 [History Confirmed 07/15/24] oxycodone-acetaminophen 5 mg-325 mg tablet (Percocet) 1 - 2 tab PO Q4H PRN pain #20 tabs 02/29/24 [Rx Confirmed 07/15/24] Coding Level of Care Code 50100 IN/OBS DISCH 30 MIN/LESS Diagnoses CAD (coronary artery disease) I25.10
== END 2024-07-16 12:40 | disposition home or self-care (01) ==
LOC: 2S 07:00 → CC 07:00
DX: E11.9 Type 2 diabetes mellitus without complications; I25.10 Atherosclerotic heart disease of native coronary artery without angina pectoris; Z86.73 Personal history of transient ischemic attack (TIA), and cerebral infarction without residual deficits